=== PATIENT | female | born 1980 | race Hispanic/Latino ===

== ENCOUNTER 2018-01-27 12:38 | Emergency (ER) | payer SELFPAY ==
[2018-01-27] MEDS ORDERED: NACL 0.9% 250ML 250 ML IV ONE (13:39)
[2018-01-27] MEDS ORDERED: SUBLIMAZE IV ONE ×2 (13:39→15:47)
--- NOTE | 2018-01-27 13:41 | Emergency Department Report ---
ED General Adult HPI - General Chief complaint: Chest Pain Stated complaint: CHEST PAINS/DIZZY SPELLS Time Seen by Provider: 01/27/18 13:26 Source: patient, RN notes reviewed Mode of arrival: Ambulatory Limitations: No Limitations - History of Present Illness Initial comments: This is a 37-year-old female who is not known to this provider previously. Her government affairs manager is Dr. Sullivan, up at [facility]. She reports that 2 years ago, at [facility], she had a heart attack and stent. She reports that she's been compliant with her Plavix ever since then. She presents to the ER with a primary complaint of chest pain. The pain is on the right side of the chest and radiates to the back. It started this morning. It is intermittent. It does not have exacerbating or relieving factors. She reports that she fell as she was almost going to pass out. She denies DVT, pulmonary embolus risk factors. She endorses that she is not . She endorses that she has not delivered given within the past 2 months. 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 The headache is not sudden or thunderclap in nature, and it is not the worst headache of her life. The headache started at 11:00 and was occipital and radiates to the bitemporal regions. She has no neck pain or neck stiffness. She also reports that she felt like she was going to pass out, and she endorses resolved binocular loss of vision. -: Gradual Location: head, chest Radiation: back Quality: aching, other (pressure) Consistency: intermittent Worsens with: immobilization Associated Symptoms: chest pain, headaches, loss of appetite, malaise, nausea/ vomiting, shortness of breath, syncope, weakness. denies: confusion, cough, diaphoresis, fever/chills, rash, seizure - Related Data Home Medications Medication Instructions Recorded Confirmed Last Taken Amlodipine Besylate [Norvasc] 5 mg PO QDAY 01/27/18 01/27/18 Unknown Atorvastatin Calcium [Lipitor] 40 mg PO HS 01/27/18 01/27/18 Unknown Calcium Carbonate [Tums] 500 mg PO DAILY 01/27/18 01/27/18 Unknown Carvedilol [Coreg] 25 mg PO BIDWM 01/27/18 01/27/18 Unknown Clopidogrel Bisulfate [Plavix] 75 mg PO QPM 01/27/18 01/27/18 Unknown Dicyclomine [Bentyl] 20 mg PO Q6H 01/27/18 01/27/18 Unknown Insulin Glargine,Hum.rec.anlog 56 units SUB-Q BID 01/27/18 01/27/18 Unknown [Basaglar Kwikpen U-100] Insulin Lispro [HumaLOG VIAL] 20 units SUB-Q TIDWM 01/27/18 01/27/18 Unknown Lisinopril [Zestril] 20 mg PO QDAY 01/27/18 01/27/18 Unknown Pantoprazole [Protonix] 40 mg PO QAM 01/27/18 01/27/18 Unknown Sertraline [Zoloft] 50 mg PO QDAY 01/27/18 01/27/18 Unknown cloNIDine [Catapres] 0.1 mg PO BID 01/27/18 01/27/18 Unknown hydroCHLOROthiazide [HCTZ] 25 mg PO QDAY 01/27/18 01/27/18 Unknown Allergies Allergy/AdvReac Type Severity Reaction Status Date / Time diphenhydramine Allergy Angioedema Verified 01/27/18 12:51 [From Benadryl] ketorolac [From Toradol] Allergy Angioedema Verified 01/27/18 12:51 metformin Allergy Rash Verified 01/27/18 12:51 naproxen Allergy Hives Verified 01/27/18 12:51 nonoxynol 9 Allergy Swelling Verified 01/27/18 12:51 [From [place] Plus Spermicidal Jelly] ED Review of Systems ROS: Stated complaint: CHEST PAINS/DIZZY SPELLS Other details as noted in HPI Comment: All other systems reviewed and negative ED Past Medical Hx - Past Medical History Hx Heart Attack/AMI: Yes Additional medical history: pulmonary edema - Surgical History Additional Surgical History: C/S, renal stents - Social History Smoking Status: Never Smoker Substance Use Type: None - Medications Home Medications: Home Medications Medication Instructions Recorded Confirmed Last Taken Type Amlodipine Besylate [Norvasc] 5 mg PO QDAY 01/27/18 01/27/18 Unknown History Atorvastatin Calcium [Lipitor] 40 mg PO HS 01/27/18 01/27/18 Unknown History Calcium Carbonate [Tums] 500 mg PO DAILY 01/27/18 01/27/18 Unknown History Carvedilol [Coreg] 25 mg PO BIDWM 01/27/18 01/27/18 Unknown History Clopidogrel Bisulfate [Plavix] 75 mg PO QPM 01/27/18 01/27/18 Unknown History Dicyclomine [Bentyl] 20 mg PO Q6H 01/27/18 01/27/18 Unknown History Insulin Glargine,Hum.rec.anlog 56 units SUB-Q BID 01/27/18 01/27/18 Unknown History [Basaglar Kwikpen U-100] Insulin Lispro [HumaLOG VIAL] 20 units SUB-Q TIDWM 01/27/18 01/27/18 Unknown History Lisinopril [Zestril] 20 mg PO QDAY 01/27/18 01/27/18 Unknown History Pantoprazole [Protonix] 40 mg PO QAM 01/27/18 01/27/18 Unknown History Sertraline [Zoloft] 50 mg PO QDAY 01/27/18 01/27/18 Unknown History cloNIDine [Catapres] 0.1 mg PO BID 01/27/18 01/27/18 Unknown History hydroCHLOROthiazide [HCTZ] 25 mg PO QDAY 01/27/18 01/27/18 Unknown History ED Physical Exam - General Limitations: No Limitations General appearance: alert, in no apparent distress - Head Head exam: Present: atraumatic, normocephalic - Eye Eye exam: Present: normal appearance, PERRL, EOMI, other (visual acuity intact to finger counting, color perception, reading at a close distance). Absent: nystagmus - ENT ENT exam: Present: normal exam, normal orophraynx, mucous membranes moist, normal external ear exam - Neck Neck exam: Present: normal inspection, full ROM, other (there is no carotid bruit. There is no expansile mass.). Absent: tenderness, meningismus - Respiratory Respiratory exam: Present: normal lung sounds bilaterally. Absent: respiratory distress - Cardiovascular Cardiovascular Exam: Present: regular rate, normal rhythm, normal heart sounds. Absent: bradycardia, tachycardia, irregular rhythm, systolic murmur, diastolic murmur, rubs, gallop - GI/Abdominal GI/Abdominal exam: Present: soft. Absent: distended, tenderness, guarding, rebound, rigid, pulsatile mass - Extremities Exam Extremities exam: Present: normal inspection, full ROM, normal capillary refill , other (2+ pulses noted in the bilateral upper, lower extremities. Compartments soft. No long bony tenderness. The pelvis is stable.). Absent: tenderness, pedal edema, joint swelling, calf tenderness - Back Exam Back exam: Present: normal inspection, full ROM. Absent: tenderness, CVA tenderness (R), paraspinal tenderness, vertebral tenderness - Neurological Exam Neurological exam: Present: alert, oriented X3, CN II-XII intact (there is no past-pointing. There is normal liin-yo-txkt.), other (Extraocular movements intact. Tongue midline. No facial droop. Facial sensation intact to light touch in the V1, V2, V3 distribution bilaterally. 5 and 5 strength in 4 extremities.. Sensation is intact to light touch in 4 extremities.). Absent: motor sensory deficit - Psychiatric Psychiatric exam: Present: anxious - Skin Skin exam: Present: warm, dry, intact, normal color. Absent: rash ED Course Vital Signs 01/27/18 01/27/18 12:51 14:59 Temperature 98.1 F Pulse Rate 90 Respiratory 18 15 Rate Blood Pressure 191/118 O2 Sat by Pulse 99 97 Oximetry - Reevaluation(s) Reevaluation #1: 01/27/18 14:21 Differential diagnosis, including but not limited to: Pneumonia, acute coronary syndrome, pneumothorax, structural cardiac disease, pulmonary embolus, migraine headache, tension headache, cluster headache, transient ischemic attack Assessment and plan: 37-year-old female with resolved binocular loss of vision, nonspecific headache, chest pain, and syncope. She is afebrile with reassuring vital signs, and her hypertension has resolved with a blood pressure in the 140/ 150s. She does not require emergent antihypertensive therapy at this time. She reports that she is not at this time. She has a GCS of 15, with an NIH score of 0. She reports no pulmonary embolus or DVT risk factors and she reports that she is low risk by well's criteria. Her EKG is morphologically abnormal without prior for comparison. We will attempt to obtain her old medical records. Her symptoms will be treated. She will be admitted to the medical service for cardiac risk stratification. Reevaluation #2: 01/27/18 15:17 Feeling improved. Troponin negative. D-dimer positive. Scans pending. No additional episodes of syncope noted. Reevaluation #3: 01/27/18 15:[address] Megan Castro to follow up ct head and cta chest. would admit if no indication for transfer Reevaluation #4: 01/27/18 16:05 ct head negative patient states she can take aspirin cta chest pending ED Medical Decision Making - Lab Data Result diagrams: 01/27/18 14:22 01/27/18 14:22 Vital Signs 01/27/18 12:51 Temperature 98.1 F Pulse Rate 90 Respiratory 18 Rate Blood Pressure 191/118 O2 Sat by Pulse 99 Oximetry Lab Results 01/27/18 Range/Units 14:19 POC Glucose 249 H (70-105) - EKG Data -: EKG Interpreted by Me EKG shows normal: sinus rhythm Rate: normal - EKG Data When compared to previous EKG there are: previous EKG unavailable 01/27/18 14:23 Sinus, 90 minute, normal axis, QTC prolonged, left bundle branch block, nonspecific interventricular conduction delay, abnormal EKG, no prior for comparison, not a stemi - Radiology Data Radiology results: pending Critical care attestation.: If time is entered above; I have spent that time in minutes in the direct care of this critically ill patient, excluding procedure time. ED Disposition Clinical Impression: Chest pain, Near syncope Disposition: OP ADMIT IP TO THIS HOSP Is pt being admited?: Yes Does the pt Need Aspirin: Yes Condition: Good Instructions: Chest Pain (ED) Referrals: PRIMARY CARE, [Primary Care Provider] - 3-5 Days
[2018-01-27] MEDS: NITROSTAT SL PRN ×3 (14:15→14:25)
[2018-01-27] MEDS ORDERED: ZOFRAN ONE (14:23)
[2018-01-27 14:33] LABS: Hematocrit 35.9 % (30.3-42.9); Hemoglobin 12.3 gm/dl (10.1-14.3); Mean Corpuscular HGB Conc 34 % (30-34); Mean Corpuscular Hemoglobin 32 pg (28-32); Mean Corpuscular Volume 93 fl (79-97); Platelet Count 210 K/mm3 (140-440); Red Blood Count 3.85 M/mm3 (3.65-5.03); Red Cell Distribution Width 13.6 % (13.2-15.2)
[2018-01-27] MEDS ORDERED: ZOFRAN IV ONE (14:34)
[2018-01-27 14:39] LABS: Eosinophils # (Auto) 0.9 K/mm3 (0.0-0.4); Eosinophils % (Auto) 9.9 % (0.0-4.3); Lymphocytes # (Auto) 1.3 K/mm3 (1.2-5.4); Lymphocytes % (Auto) 14.2 % (13.4-35.0); Monocytes # (Auto) 1.4 K/mm3 (0.0-0.8); Monocytes % (Auto) 15.3 % (0.0-7.3)
[2018-01-27 14:50] LABS: INR 0.97 (0.87-1.13); Partial Thromboplastin Time 22.5 Sec. (24.2-36.6)
[2018-01-27 14:55] LABS: BUN/Creatinine Ratio 17; Blood Urea Nitrogen 10 mg/dL (7-17); Calcium 8.7 mg/dL (8.4-10.2); Hemolysis Index 12
--- NOTE | 2018-01-27 16:03 | Cat Scan Report ---
FINAL REPORT EXAM: CT HEAD/BRAIN WO CON HISTORY: headache loss of vosion TECHNIQUE: CT examination of the head without IV contrast PRIORS: None. FINDINGS: The moderate mucosal thickening visualized portion of right maxillary sinus. The other visible paranasal sinuses are clear. Metal artifact limits examination. No acute air-fluid level visualized in the included air-filled sinuses. Bone windows demonstrate no acute fracture. The brain is without mass, mass effect, hemorrhage, or acute infarct. There is no extra-axial intracranial bleed, brain bleed, or midline shift. The ventricles and sulci are age-appropriate. IMPRESSION: No visible acute CVA, intracranial bleed, or brain mass
[2018-01-27] MEDS ORDERED: BABY ASPIRIN PO ONE (16:05)
--- NOTE | 2018-01-27 16:20 | Cat Scan Report ---
FINAL REPORT EXAM: CT ANGIO CHEST HISTORY: chest pain near syncope TECHNIQUE: CT examination of the chest with IV contrast CT angiographic 2D and thick slab 3D image post-processing PRIORS: None. FINDINGS: Normal cardiac size without pericardial effusion. Intact normal caliber thoracic aorta. Normal-appearing esophagus. No hilar mass or mediastinal adenopathy. Slight degenerative change in the regional skeleton. No acute fracture or significant osseous lesion. The visualized pulmonary arteries are diffusely patent bilaterally. There is no filling defect to suggest PE. No pneumothorax, pleural effusion, or focal pulmonary consolidation. No evidence of lung mass or pulmonary nodule. Minimal subpleural patchy opacity in the lateral aspect of the left upper lobe may be scarring. Differential includes small focus of atelectasis or pneumonitis. IMPRESSION: Minimal subpleural patchy opacity in the lateral aspect of the left upper lobe may be scarring. Differential includes small focus of atelectasis or pneumonitis No CT evidence of PE
--- NOTE | 2018-01-27 16:21 | XRay Report ---
FINAL REPORT EXAM: XR CHEST ROUTINE 2V HISTORY: cp TECHNIQUE: 2 view examination of the chest PRIORS: None FINDINGS: There is no visible pulmonary consolidation, pleural effusion, or pneumothorax. Cardiac silhouette size is normal without vascular congestion. No visible acute displaced fracture in the regional skeleton. IMPRESSION: No evidence of acute cardiopulmonary disease
[2018-01-27] MEDS ORDERED: PROTONIX PO ONE (16:24)
[2018-01-27] MEDS ORDERED: ZESTRIL PO ONE (16:42)
--- NOTE | 2018-01-27 17:07 | Consultation ---
History of Present Illness - Reason for Consult Consult date: 01/27/18 Requesting physician: PAOLA MONTEJO - History of Present Illness 37 YO Female with MO, DM, GERD, ID, Pseudotumor Cerebri, HLD presents to ED for evaluation of Atypical Chest pain. Pt treated IAW chest pain protocol. Serial cardiac enzymes, EKG, telemetry were not indicative of acute ischemia. D dimer was elevated but CTA chest was negative for PE. Pt medically optimized and treated with PPI therapy. Pt discharged home and instructed to f/u pcp 1wk, and f/u cardiology 1week for further care and evaluation. Past History Past Medical History: diabetes, hypertension, hyperlipidemia Past Surgical History: Other (renal stents) Social history: single Family history: diabetes, hypertension Medications and Allergies Allergies Allergy/AdvReac Type Severity Reaction Status Date / Time diphenhydramine Allergy Angioedema Verified 01/27/18 12:51 [From Benadryl] ketorolac [From Toradol] Allergy Angioedema Verified 01/27/18 12:51 metformin Allergy Rash Verified 01/27/18 12:51 naproxen Allergy Hives Verified 01/27/18 12:51 nonoxynol 9 Allergy Swelling Verified 01/27/18 12:51 [From [place] Plus Spermicidal Jelly] Home Medications Medication Instructions Recorded Confirmed Last Taken Type Amlodipine Besylate [Norvasc] 5 mg PO QDAY 01/27/18 01/27/18 Unknown History Atorvastatin Calcium [Lipitor] 40 mg PO HS 01/27/18 01/27/18 Unknown History Calcium Carbonate [Tums] 500 mg PO DAILY 01/27/18 01/27/18 Unknown History Carvedilol [Coreg] 25 mg PO BIDWM 01/27/18 01/27/18 Unknown History Clopidogrel Bisulfate [Plavix] 75 mg PO QPM 01/27/18 01/27/18 Unknown History Dicyclomine [Bentyl] 20 mg PO Q6H 01/27/18 01/27/18 Unknown History Insulin Glargine,Hum.rec.anlog 56 units SUB-Q BID 01/27/18 01/27/18 Unknown History [Maycol Murphy U-100] Insulin Lispro [HumaLOG VIAL] 20 units SUB-Q TIDWM 01/27/18 01/27/18 Unknown History Lisinopril [Zestril] 20 mg PO QDAY 01/27/18 01/27/18 Unknown History Pantoprazole [Protonix] 40 mg PO QAM 01/27/18 01/27/18 Unknown History Sertraline [Zoloft] 50 mg PO QDAY 01/27/18 01/27/18 Unknown History cloNIDine [Catapres] 0.1 mg PO BID 01/27/18 01/27/18 Unknown History hydroCHLOROthiazide [HCTZ] 25 mg PO QDAY 01/27/18 01/27/18 Unknown History Active Meds: Active Medications Hydrochlorothiazide (Hctz) 25 mg PO ONCE ONE Stop: 01/27/18 18:16 Metoprolol Tartrate (Lopressor) 25 mg PO ONCE ONE Stop: 01/27/18 17:43 Nitroglycerin (Nitrostat) 0.4 mg SL .Q5MIN PRN PRN Reason: Chest Pain Last Admin: 01/27/18 14:25 Dose: 0.4 mg Review of Systems Constitutional: no weight loss, no weight gain, no fever, no chills Ears, nose, mouth and throat: no ear pain, no ear discharge, no tinnitis, no decreased hearing, no nose pain, no nasal congestion Breasts: no change in shape, no swelling, no mass Cardiovascular: chest pain, high blood pressure, no orthopnea, no palpitations, no rapid/irregular heart beat, no edema, no syncope, no lightheadedness, no shortness of breath, no dyspnea on exertion, no paroxysmal nocturnal dyspnea, no claudication, no phlebitis, no leg edema, no decreased exercise tolerance Respiratory: no cough, no cough with sputum, no excessive sputum, no hemoptysis , no shortness of breath Gastrointestinal: no abdominal pain, no nausea, no vomiting, no diarrhea, no constipation, no change in bowel habits Genitourinary Female: no dysmenorrhea, no pelvic pain, no flank pain, no menorrhagia, no dysuria, no urinary frequency, no urgency, no stress incontinence, no post void dribbling, no incomplete emptying, no urge incontinence Menstruation: no currently menstrual, no premenarcheal, no post hysterectomy, no ammenorrhea, no ammenorrhea on BC, no period normal, no period heavy Rectal: no pain, no incontinence, no bleeding, no itching, no hemorrhoids Musculoskeletal: no neck stiffness, no neck pain, no shooting arm pain, no arm numbness/tingling, no low back pain, no shooting leg pain, no leg numbness/ tingling Integumentary: no rash, no pruritis, no redness, no sores, no wounds, no jaundice Neurological: no paralysis, no weakness, no parathesias, no numbness, no tingling, no seizures, no syncope Psychiatric: no anxiety, no memory loss, no change in sleep habits, no sleep disturbances, no insomnia, no hypersomnia, no change in appetite, no change in libido, no suicidal ideation Endocrine: no cold intolerance, no heat intolerance, no polyphagia, no excessive thirst, no polydipsia, no polyuria, no nocturia, no excessive sweating , no flushing Hematologic/Lymphatic: no easy bruising, no easy bleeding, no lymphadenopathy, no lymphedema Allergic/Immunologic: no urticaria, no allergic rhinitis, no wheezing, no persistent infections, no anaphylaxis, no angioedema Exam - Constitutional Vitals: Temp Pulse Resp BP Pulse Ox 98.1 F 82 16 132/77 99 01/27/18 12:51 01/27/18 15:56 01/27/18 15:56 01/27/18 15:56 01/27/18 15:56 General appearance: Present: no acute distress, well-nourished - EENT Eyes: Present: PERRL ENT: hearing intact, clear oral mucosa - Neck Neck: Present: supple, normal ROM - Respiratory Respiratory effort: normal Respiratory: bilateral: CTA - Cardiovascular Heart Sounds: Present: S1 & S2. Absent: rub, click - Extremities Extremities: pulses symmetrical, No edema Peripheral Pulses: within normal limits - Abdominal General gastrointestinal: Present: soft, non-tender, non-distended, normal bowel sounds Female genitourinary: Present: normal - Integumentary Integumentary: Present: clear, warm, dry - Musculoskeletal Musculoskeletal: gait normal, strength equal bilaterally - Psychiatric Psychiatric: appropriate mood/affect, intact judgment & insight - Neurologic Neurologic: CNII-XII intact, moves all extremities Results - Labs CBC & Chem 7: 01/27/18 14:22 01/27/18 14:22 Labs: Abnormal lab results 01/27/18 01/27/18 01/27/18 Range/Units 14:19 14:22 14:22 Norman % (Auto) 15.3 H (0.0-7.3) % Eos % (Auto) 9.9 H (0.0-4.3) % Norman # 1.4 H (0.0-0.8) K/mm3 Eos # 0.9 H (0.0-0.4) K/mm3 APTT (24.2-36.6) Sec. D-Dimer (0-234) ng/mlDDU Sodium 134 L (137-145) mmol/L Chloride 97.8 L (98-107) mmol/L Creatinine 0.6 L (0.7-1.2) mg/dL Glucose 266 H (65-100) mg/dL POC Glucose 249 H (70-105) 01/27/18 Range/Units 14:22 Norman % (Auto) (0.0-7.3) % Eos % (Auto) (0.0-4.3) % Norman # (0.0-0.8) K/mm3 Eos # (0.0-0.4) K/mm3 APTT 22.5 L (24.2-36.6) Sec. D-Dimer 273.75 H (0-234) ng/mlDDU Sodium (137-145) mmol/L Chloride (98-107) mmol/L Creatinine (0.7-1.2) mg/dL Glucose (65-100) mg/dL POC Glucose (70-105) Assessment and Plan - Patient Problems (1) GERD (gastroesophageal reflux disease) Current Visit: Yes Status: Acute Qualifiers: Esophagitis presence: with esophagitis Qualified Code(s): K21.0 - Gastro- esophageal reflux disease with esophagitis Plan to address problem: PPI therapy, carafate, outpatient GI F/u (2) Hypertension Current Visit: Yes Status: Acute Qualifiers: Hypertension type: essential hypertension Qualified Code(s): I10 - Essential (primary) hypertension Plan to address problem: resume previous antihypertensive therapy. F/u cardiology 1 week for elective stress test. (3) Diabetes Current Visit: Yes Status: Acute Plan to address problem: ADA diet, glucose log 3 times daily
[2018-01-27] MEDS ORDERED: LOPRESSOR PO ONE (17:42)
[2018-01-27] MEDS ORDERED: CARAFATE PO ONE (17:46)
[2018-01-27] MEDS ORDERED: HCTZ PO ONE (18:15)
[2018-01-27 19:15] VITALS: BP 151/81
== END 2018-01-27 19:14 | disposition admitted as inpatient to this hospital (09) ==
LOC: ED 12:38
DX: R07.89 Other chest pain (principal); R55 Syncope and collapse; I25.2 Old myocardial infarction; Z88.6 Allergy status to analgesic agent; Z88.8 Allergy status to other drugs, medicaments and biological substances
CPT/HCPCS: 36415; 70450; 71046; 71275; 80048; 82962; 83880; 84484; 84702; 85025; 85379; 85610; 85730; 93005; 93010; 96361; 96372; 96374; 96375; 99285; J2405; J3010; J7050; Q9967

== ENCOUNTER 2018-02-20 11:30 | Inpatient (IN) | payer OTHER ==
[2018-02-20] MEDS ORDERED: ZOFRAN IV ONE (11:57)
[2018-02-20] MEDS ORDERED: NITRO-BID 2% TP ONE (11:57)
[2018-02-20] MEDS ORDERED: SUBLIMAZE IV ONE (11:57)
[2018-02-20] MEDS ORDERED: ASPIRIN PO ONE (11:58)
--- NOTE | 2018-02-20 12:04 | Emergency Department Report ---
HPI - General Chief Complaint: Chest Pain Time Seen by Provider: 02/20/18 11:48 - HPI HPI: Room 22 The patient is a 37-year-old female presenting with a chief complaint of chest pain. The patient states this morning is 03:00 she developed nausea and vomiting and then diarrhea. The patient states she went to work and an hour later she developed substernal chest pain described as pressure and sharpness radiate into her back and left neck. Patient states she felt near syncopal. The patient states she took a sublingual nitroglycerin and it helped slightly with the pain returned. Patient admits to shortness of breath and diaphoresis with her chest pain. The patient currently gives her pain a score of 8/10. The patient states her last cardiac catheterization occurred approximately one year ago when her LAD stent was reassessed Location: [See above] Duration: [See above] Quality: Pressure/sharp Severity: 8/10 Modifying factors: [see above] Context: [see above] Mode of transportation: [not driving] ED Past Medical Hx - Past Medical History Hx Hypertension: Yes Hx Heart Attack/AMI: Yes Hx Diabetes: Yes Hx Kidney Stones: Yes Additional medical history: Flash pulmonary edema, kidney stents - Surgical History Additional Surgical History: C/S, renal stents, Heart stent in the LAD 2 yrs ago - Family History Family history: no significant - Social History Smoking Status: Former Smoker (none 2 years) Substance Use Type: None (denies illicit drug use), Alcohol (rarely) - Medications Home Medications: Home Medications Medication Instructions Recorded Confirmed Last Taken Type Amlodipine Besylate [Norvasc] 5 mg PO QDAY 01/27/18 01/27/18 Unknown History Atorvastatin Calcium [Lipitor] 40 mg PO HS 01/27/18 01/27/18 Unknown History Calcium Carbonate [Tums] 500 mg PO DAILY 01/27/18 01/27/18 Unknown History Carvedilol [Coreg] 25 mg PO BIDWM 01/27/18 01/27/18 Unknown History Clopidogrel Bisulfate [Plavix] 75 mg PO QPM 01/27/18 01/27/18 Unknown History Dicyclomine [Bentyl] 20 mg PO Q6H 01/27/18 01/27/18 Unknown History Insulin Glargine,Hum.rec.anlog 56 units SUB-Q BID 01/27/18 01/27/18 Unknown History [Maycol Garciapen U-100] Insulin Lispro [HumaLOG VIAL] 20 units SUB-Q TIDWM 01/27/18 01/27/18 Unknown History Lisinopril [Zestril] 20 mg PO QDAY 01/27/18 01/27/18 Unknown History Pantoprazole [Protonix] 40 mg PO QAM 01/27/18 01/27/18 Unknown History Sertraline [Zoloft] 50 mg PO QDAY 01/27/18 01/27/18 Unknown History Sucralfate [Carafate] 1 gm PO ACHS #300 ml 01/27/18 Unknown Rx cloNIDine [Catapres] 0.1 mg PO BID 01/27/18 01/27/18 Unknown History hydroCHLOROthiazide [HCTZ] 25 mg PO QDAY 01/27/18 01/27/18 Unknown History ED Review of Systems ROS: Stated complaint: CHEST PAIN Other details as noted in HPI Constitutional: diaphoresis Eyes: denies: eye pain ENT: denies: throat pain Respiratory: shortness of breath Cardiovascular: chest pain Endocrine: no symptoms reported Gastrointestinal: nausea. denies: vomiting Genitourinary: denies: dysuria Musculoskeletal: denies: back pain Neurological: denies: headache Physical Exam - Physical Exam Vital Signs: Vital Signs 02/20/18 02/20/18 02/20/18 11:34 11:41 11:45 Temperature 98.0 F Pulse Rate 103 H 95 H Respiratory 20 19 Rate Blood Pressure 133/86 Blood Pressure 133/86 [Left] O2 Sat by Pulse 98 99 99 Oximetry 02/20/18 11:51 Temperature 98 F Pulse Rate 110 H Respiratory 20 Rate Blood Pressure 133/86 Blood Pressure [Left] O2 Sat by Pulse 99 Oximetry Physical Exam: GENERAL: The patient is well-developed well-nourished female lying on stretcher not appearing to be in acute distress. [] HEENT: Normocephalic. Atraumatic. Extraocular motions are intact. Patient has moist mucous membranes. NECK: Supple. Trachea midline CHEST/LUNGS: Clear to auscultation. There is no respiratory distress noted. HEART/CARDIOVASCULAR: Regular. There is no tachycardia. There is no gallop rub or murmur. ABDOMEN: Abdomen is soft, nontender. Patient has normal bowel sounds. There is no abdominal distention. SKIN: There is no rash. There is no edema. There is no diaphoresis. NEURO: The patient is awake, alert, and oriented. The patient is cooperative. The patient has normal speech MUSCULOSKELETAL: There is no evidence of acute injury. ED Course Vital Signs 02/20/18 02/20/18 02/20/18 11:34 11:41 11:45 Temperature 98.0 F Pulse Rate 103 H 95 H Respiratory 20 19 Rate Blood Pressure 133/86 Blood Pressure 133/86 [Left] O2 Sat by Pulse 98 99 99 Oximetry 02/20/18 11:51 Temperature 98 F Pulse Rate 110 H Respiratory 20 Rate Blood Pressure 133/86 Blood Pressure [Left] O2 Sat by Pulse 99 Oximetry ED Medical Decision Making - Lab Data Result diagrams: 02/20/18 11:35 02/20/18 11:35 Laboratory Tests 02/20/18 02/20/18 02/20/18 11:35 11:35 11:35 WBC 12.1 H RBC 4.36 Hgb 13.8 Hct 40.4 MCV 93 MCH 32 MCHC 34 RDW 13.4 Plt Count 225 Lymph % (Auto) 20.4 Brooke % (Auto) 6.5 Eos % (Auto) 1.8 Baso % (Auto) 1.1 Lymph # 2.5 Brooke # 0.8 Eos # 0.2 Baso # 0.1 Seg Neutrophils % 70.2 H Seg Neutrophils # 8.5 H Sodium Potassium Chloride Carbon Dioxide Anion Gap BUN Creatinine Estimated GFR BUN/Creatinine Ratio Glucose POC Glucose Calcium Total Creatine Kinase 81 CK-MB (CK-2) 2.9 CK-MB (CK-2) Rel Index 3.5 Troponin T < 0.010 NT-Pro-B Natriuret Pep 140.1 HCG, Qual Negative 02/20/18 02/20/18 11:35 11:56 WBC RBC Hgb Hct MCV MCH MCHC RDW Plt Count Lymph % (Auto) Brooke % (Auto) Eos % (Auto) Baso % (Auto) Lymph # Brooke # Eos # Baso # Seg Neutrophils % Seg Neutrophils # Sodium 139 Potassium 4.5 Chloride 100.1 Carbon Dioxide 22 Anion Gap 21 BUN 15 Creatinine 0.7 Estimated GFR > 60 BUN/Creatinine Ratio 21 Glucose 367 H POC Glucose 304 H Calcium 9.8 Total Creatine Kinase CK-MB (CK-2) CK-MB (CK-2) Rel Index Troponin T NT-Pro-B Natriuret Pep HCG, Qual - EKG Data -: EKG Interpreted by Me EKG shows normal: sinus rhythm Rate: normal - EKG Data When compared to previous EKG there are: no significant change Interpretation: unchanged when compared t (no significant change when compared to previous EKG dated 01/27/2018) - Differential Diagnosis ACS, pericarditis, GERD Critical care attestation.: If time is entered above; I have spent that time in minutes in the direct care of this critically ill patient, excluding procedure time. ED Disposition Clinical Impression: Chest pain Disposition: OP ADMIT IP TO THIS HOSP Is pt being admited?: Yes Does the pt Need Aspirin: Yes Condition: Fair Instructions: Chest Pain (ED) Time of Disposition: 13:12 (hospitalist paged (Dr Edwards))
[2018-02-20 12:12] LABS: Basophils # (Auto) 0.1 K/mm3 (0.0-0.1); Basophils % (Auto) 1.1 % (0.0-1.8); Eosinophils # (Auto) 0.2 K/mm3 (0.0-0.4); Eosinophils % (Auto) 1.8 % (0.0-4.3); Hematocrit 40.4 % (30.3-42.9); Hemoglobin 13.8 gm/dl (10.1-14.3); Lymphocytes # (Auto) 2.5 K/mm3 (1.2-5.4); Lymphocytes % (Auto) 20.4 % (13.4-35.0); Mean Corpuscular HGB Conc 34 % (30-34); Mean Corpuscular Hemoglobin 32 pg (28-32); Mean Corpuscular Volume 93 fl (79-97); Monocytes # (Auto) 0.8 K/mm3 (0.0-0.8); Monocytes % (Auto) 6.5 % (0.0-7.3); Platelet Count 225 K/mm3 (140-440); Red Blood Count 4.36 M/mm3 (3.65-5.03); Red Cell Distribution Width 13.4 % (13.2-15.2)
[2018-02-20 12:45] LABS: BUN/Creatinine Ratio 21; Blood Urea Nitrogen 15 mg/dL (7-17); Calcium 9.8 mg/dL (8.4-10.2); Hemolysis Index 28
--- NOTE | 2018-02-20 12:53 | XRay Report ---
AP CHEST: HISTORY: chest pain AP view of the chest demonstrates a normal mediastinal and cardiac contour with clear lungs and normal bony and soft tissue structures. IMPRESSION: Unremarkable AP chest.
[2018-02-20 12:55] LABS: Creatine Kinase MB 2.9 ng/mL (0.0-4.0)
--- NOTE | 2018-02-20 17:00 | History and Physical Report ---
History of Present Illness Date of examination: 02/20/18 Date of admission: 02/20/18 13:15 Medications and Allergies Allergies Allergy/AdvReac Type Severity Reaction Status Date / Time diphenhydramine Allergy Angioedema Verified 01/27/18 12:51 [From Benadryl] ketorolac [From Toradol] Allergy Angioedema Verified 01/27/18 12:51 metformin Allergy Rash Verified 01/27/18 12:51 naproxen Allergy Hives Verified 01/27/18 12:51 nonoxynol 9 Allergy Swelling Verified 01/27/18 12:51 [From [place] Plus Spermicidal Jelly] Home Medications Medication Instructions Recorded Confirmed Last Taken Type Amlodipine Besylate [Norvasc] 5 mg PO QDAY 01/27/18 01/27/18 Unknown History Atorvastatin Calcium [Lipitor] 40 mg PO HS 01/27/18 01/27/18 Unknown History Calcium Carbonate [Tums] 500 mg PO DAILY 01/27/18 01/27/18 Unknown History Carvedilol [Coreg] 25 mg PO BIDWM 01/27/18 01/27/18 Unknown History Clopidogrel Bisulfate [Plavix] 75 mg PO QPM 01/27/18 01/27/18 Unknown History Dicyclomine [Bentyl] 20 mg PO Q6H 01/27/18 01/27/18 Unknown History Insulin Glargine,Hum.rec.anlog 56 units SUB-Q BID 01/27/18 01/27/18 Unknown History [Basaglar Kwikpen U-100] Insulin Lispro [HumaLOG VIAL] 20 units SUB-Q TIDWM 01/27/18 01/27/18 Unknown History Lisinopril [Zestril] 20 mg PO QDAY 01/27/18 01/27/18 Unknown History Pantoprazole [Protonix] 40 mg PO QAM 01/27/18 01/27/18 Unknown History Sertraline [Zoloft] 50 mg PO QDAY 01/27/18 01/27/18 Unknown History Sucralfate [Carafate] 1 gm PO ACHS #300 ml 01/27/18 Unknown Rx cloNIDine [Catapres] 0.1 mg PO BID 01/27/18 01/27/18 Unknown History hydroCHLOROthiazide [HCTZ] 25 mg PO QDAY 01/27/18 01/27/18 Unknown History Exam - Constitutional Vitals: Temp Pulse Resp BP Pulse Ox 97.6 F 83 20 116/77 98 02/20/18 16:48 02/20/18 16:48 02/20/18 16:48 02/20/18 16:48 02/20/18 16:48 Results - Labs CBC & Chem 7: 02/20/18 11:35 02/20/18 11:35 Labs: Laboratory Last Values WBC 12.1 K/mm3 (4.5-11.0) H 02/20/18 11:35 RBC 4.36 M/mm3 (3.65-5.03) 02/20/18 11:35 Hgb 13.8 gm/dl (10.1-14.3) 02/20/18 11:35 Hct 40.4 % (30.3-42.9) 02/20/18 11:35 MCV 93 fl (79-97) 02/20/18 11:35 MCH 32 pg (28-32) 02/20/18 11:35 MCHC 34 % (30-34) 02/20/18 11:35 RDW 13.4 % (13.2-15.2) 02/20/18 11:35 Plt Count 225 K/mm3 (140-440) 02/20/18 11:35 Lymph % (Auto) 20.4 % (13.4-35.0) 02/20/18 11:35 Turner % (Auto) 6.5 % (0.0-7.3) 02/20/18 11:35 Eos % (Auto) 1.8 % (0.0-4.3) 02/20/18 11:35 Baso % (Auto) 1.1 % (0.0-1.8) 02/20/18 11:35 Lymph # 2.5 K/mm3 (1.2-5.4) 02/20/18 11:35 Turner # 0.8 K/mm3 (0.0-0.8) 02/20/18 11:35 Eos # 0.2 K/mm3 (0.0-0.4) 02/20/18 11:35 Baso # 0.1 K/mm3 (0.0-0.1) 02/20/18 11:35 Seg Neutrophils % 70.2 % (40.0-70.0) H 02/20/18 11:35 Seg Neutrophils # 8.5 K/mm3 (1.8-7.7) H 02/20/18 11:35 Sodium 139 mmol/L (137-145) 02/20/18 11:35 Potassium 4.5 mmol/L (3.6-5.0) 02/20/18 11:35 Chloride 100.1 mmol/L (98-107) 02/20/18 11:35 Carbon Dioxide 22 mmol/L (22-30) 02/20/18 11:35 Anion Gap 21 mmol/L 02/20/18 11:35 BUN 15 mg/dL (7-17) 02/20/18 11:35 Creatinine 0.7 mg/dL (0.7-1.2) 02/20/18 11:35 Estimated GFR > 60 ml/min 02/20/18 11:35 BUN/Creatinine Ratio 21 % 02/20/18 11:35 Glucose 367 mg/dL (65-100) H 02/20/18 11:35 POC Glucose 304 (70-105) H 02/20/18 11:56 Calcium 9.8 mg/dL (8.4-10.2) 02/20/18 11:35 Total Creatine Kinase 81 units/L (30-135) 02/20/18 11:35 CK-MB (CK-2) 2.9 ng/mL (0.0-4.0) 02/20/18 11:35 CK-MB (CK-2) Rel Index 3.5 (0-4) 02/20/18 11:35 Troponin T < 0.010 ng/mL (0.00-0.029) 02/20/18 11:35 NT-Pro-B Natriuret Pep 140.1 pg/mL (0-450) 02/20/18 11:35 HCG, Qual Negative (Negative) 02/20/18 11:35
[2018-02-20] MEDS ORDERED: MORPHINE IV PRN (17:01)
[2018-02-20] MEDS ORDERED: TYLENOL PO PRN (17:01)
[2018-02-20] MEDS ORDERED: SODIUM CHLORIDE FLUSH SYRINGE 10 ML IV PRN (17:01)
[2018-02-20] MEDS: BENTYL PO SCH ×2 (19:02→23:57)
[2018-02-20] MEDS: COREG PO SCH ×2 (19:03→22:39)
[2018-02-20] MEDS: HCTZ PO SCH (19:03)
[2018-02-20] MEDS: TUMS PO SCH (19:08)
[2018-02-20] MEDS: NORVASC PO SCH (19:08)
[2018-02-20] MEDS: PLAVIX PO SCH (19:09)
[2018-02-20] MEDS: ZOFRAN IV PRN (19:09)
[2018-02-20] MEDS: HumaLOG SUB-Q SCH ×2 (19:10→22:42)
[2018-02-20] MEDS: DILAUDID IV PRN (21:10)
[2018-02-20] MEDS ORDERED: LANTUS SUB-Q SCH (22:00)
[2018-02-20] MEDS ORDERED: INSULIN GLARGINE HUM REC ANLOG 56 UNIT SUB-Q SCH (22:00)
[2018-02-20] MEDS: CATAPRES PO SCH (22:39)
[2018-02-20] MEDS: CARAFATE PO SCH (22:39)
[2018-02-20] MEDS: SODIUM CHLORIDE FLUSH SYRINGE 10 ML IV SCH (22:41)
[2018-02-21] MEDS: DILAUDID IV PRN ×5 (01:02→23:56)
[2018-02-21] MEDS: BENTYL PO SCH ×4 (05:37→23:56)
--- NOTE | 2018-02-21 06:56 | Event Note ---
Date: 02/20/18 See dictated H/p in reports Chest pain -r/o [place] HTN CAD and stent placement T2DM
[2018-02-21 07:20] LABS: Basophils % (Auto) 0.5 % (0.0-1.8); Eosinophils # (Auto) 0.3 K/mm3 (0.0-0.4); Eosinophils % (Auto) 3.2 % (0.0-4.3); Hematocrit 37.5 % (30.3-42.9); Hemoglobin 12.8 gm/dl (10.1-14.3); Lymphocytes # (Auto) 1.9 K/mm3 (1.2-5.4); Lymphocytes % (Auto) 20.8 % (13.4-35.0); Mean Corpuscular HGB Conc 34 % (30-34); Mean Corpuscular Hemoglobin 32 pg (28-32); Mean Corpuscular Volume 93 fl (79-97); Monocytes # (Auto) 0.6 K/mm3 (0.0-0.8); Monocytes % (Auto) 7.1 % (0.0-7.3); Platelet Count 208 K/mm3 (140-440); Red Blood Count 4.04 M/mm3 (3.65-5.03); Red Cell Distribution Width 13.6 % (13.2-15.2)
[2018-02-21 07:40] LABS: Alanine Aminotransferase 16 units/L (7-56); Albumin 3.6 g/dL (3.9-5); BUN/Creatinine Ratio 20; Blood Urea Nitrogen 14 mg/dL (7-17); Calcium 8.9 mg/dL (8.4-10.2); Hemolysis Index 8
[2018-02-21] MEDS: CARAFATE PO SCH ×4 (08:00→21:59)
[2018-02-21] MEDS ORDERED: HumaLOG SUB-Q SCH (08:00)
[2018-02-21] MEDS: HumaLOG SUB-Q SCH ×7 (08:00→22:00)
[2018-02-21] MEDS ORDERED: LEXISCAN IV ONE ×2 (08:12→08:19)
--- NOTE | 2018-02-21 08:12 | History and Physical Report ---
Priority CHIEF COMPLAINT: Left-sided chest pain since morning. HISTORY OF PRESENT ILLNESS: A 37-year-old female woke up around 3:00 a.m. with chest pain. Also, had developed nausea and vomiting. The patient went to work and an hour later she developed substernal chest pain with radiation to the left side of the neck and into the back. Also, she was near syncopal. The patient took sublingual nitroglycerin, which helped slightly with the pain. The patient also admits to shortness of breath and diaphoresis with the chest pain. The patient had LAD stent recently. No exacerbating or relieving factors. Chest pain is about 8 on a scale of 1-10. Sharp in nature. PAST MEDICAL HISTORY: Significant for hypertension, coronary artery disease, acute [place], diabetes, kidney stones, ____ kidney stents bilaterally and flash pulmonary edema. PAST SURGICAL HISTORY: Bilateral renal stents and a stent in the left main 2 years ago. FAMILY HISTORY: Hypertension. SOCIAL HISTORY: Former smoker, stopped 2 years ago. No substance abuse or alcohol socially. CURRENT MEDICATIONS: On the chart including amlodipine, Lipitor, and Coreg. Also, insulin. REVIEW OF SYSTEMS: Significant for left-sided chest pain and nausea. Otherwise, review of systems is essentially negative. PHYSICAL EXAMINATION: GENERAL: Young female, cooperative during examination. VITAL SIGNS: Blood pressure is 101/60, temperature is 97.7, pulse is 71, respirations are 17, sats are 98%. HEENT: Unremarkable. Pupils equal and reactive. NECK: Supple, no lymphadenopathy, no thyromegaly. LUNGS: Clear to auscultation and percussion. Good air entry. CARDIOVASCULAR: S1, S2 heard. No gallop, no murmur, no rub. Apical impulse in left fifth intercostal space and midclavicular line. ABDOMEN: Soft and benign. No hepatosplenomegaly. No guarding, no rigidity. Hernial orifices are normal. EXTREMITIES: Good pedal pulses. No pedal edema. CENTRAL NERVOUS SYSTEM: Alert and oriented x 4, nonfocal exam. SKIN: Normal. LABORATORY DATA: EKG, normal sinus rhythm. Chest x-ray unremarkable. Labs are significant for white count of 12,100, H and H is 13.8 and 40.4, platelet count is 225,000. Electrolytes are normal. Glucose is 304, 256. Hemoglobin A1c is 12.2. ASSESSMENT AND PLAN: 1. Chest pain, rule out myocardial infarction, chest pain protocol. Lexiscan in the morning. Serial cardiac enzymes. 2. Uncontrolled diabetes, insulin was adjusted. The patient was on Lantus 56 units twice a day. I have increased it to 70. I also added lunchtime Humalog. 3. Hypertension. Continue amlodipine, Coreg and lisinopril. 4. Depression. Continue Zoloft. 5. Coronary artery disease. Continue Plavix. 6. Gastroesophageal reflux disease. Continue Zoloft. 7. Deep venous thrombosis prophylaxis, Lovenox 40 mg subcutaneous daily. JOB# [id number] VSM/NTS
[2018-02-21] MEDS ORDERED: AFLURIA QUAD 2018-2019 SYRINGE IM ONE (12:00)
[2018-02-21] MEDS: BABY ASPIRIN PO SCH (13:04)
[2018-02-21] MEDS: PROTONIX PO SCH (13:05)
[2018-02-21] MEDS: TUMS PO SCH (13:06)
[2018-02-21] MEDS: CATAPRES PO SCH ×2 (13:08→22:09)
[2018-02-21] MEDS: COREG PO SCH ×2 (13:09→22:00)
[2018-02-21] MEDS: NORVASC PO SCH (13:10)
[2018-02-21] MEDS: HCTZ PO SCH (13:10)
[2018-02-21] MEDS: SODIUM CHLORIDE FLUSH SYRINGE 10 ML IV SCH ×2 (13:11→22:10)
[2018-02-21] MEDS: ZESTRIL PO SCH (13:12)
[2018-02-21] MEDS: LANTUS SUB-Q SCH ×2 (13:15→22:00)
[2018-02-21] MEDS: ZOLOFT PO SCH (13:23)
--- NOTE | 2018-02-21 15:47 | Discharge Summary ---
Providers - Providers Date of Admission: 02/20/18 13:15 Date of discharge: 02/21/18 Attending physician: SHI DOWNS Primary care physician: SPLICER APPRENTICE Hospitalization Condition: Fair Disposition: DC-01 TO HOME OR SELFCARE Time spent for discharge: 31 min Core Measure Documentation - Palliative Care Palliative Care/ Comfort Measures: Not Applicable - Core Measures Any of the following diagnoses?: none Exam - Constitutional Vitals: Temp Pulse Resp BP Pulse Ox 97.4 F L 74 20 79/59 99 02/21/18 12:24 02/21/18 12:24 02/21/18 12:24 02/21/18 13:12 02/21/18 12:24 General appearance: Present: no acute distress, well-nourished, obese (morbidly obese) - EENT Eyes: Present: PERRL, EOM intact - Neck Neck: Present: supple, normal ROM - Respiratory Respiratory effort: normal - Cardiovascular Rhythm: regular Heart Sounds: Present: S1 & S2 - Extremities Extremities: no ischemia, No edema - Abdominal General gastrointestinal: Present: soft, non-tender, non-distended, normal bowel sounds - Integumentary Integumentary: Present: clear, warm - Musculoskeletal Musculoskeletal: strength equal bilaterally - Psychiatric Psychiatric: appropriate mood/affect, cooperative - Neurologic Neurologic: CNII-XII intact, moves all extremities Plan Activity: no restrictions Diet: diabetic Additional Instructions: Exercise as tolerated and weight reduction when stable. Advised to see a private [employer] as needed Follow up with: PRIMARY CARE, [Primary Care Provider] - 7 Days BLAS MACIEL MD [Staff Physician] - 7 Days KARRI GILLETTE MD [Staff Physician] - 7 Days Prescriptions: Carvedilol [Coreg] 25 mg PO BIDWM #60 tablet Pantoprazole [Protonix TAB] 40 mg PO QAM #14 tablet
--- NOTE | 2018-02-21 18:05 | Progress Note ---
Assessment and Plan Assessment and plan: --Atypical chest pain; probably noncardiac, negative stress test Chest pain probably secondary to GERD, continue Protonix --Type 2 diabetes mellitus; uncontrolled, blood sugars more than 300s Continue Accu-Chek sliding scale coverage and ADA diet longer acting insulin, HbA1c 12.2 --Hypertension; on the lower range, continue current antihypertensives As needed, closely monitor blood pressures --History of depression; continue antidepression medications --Coronary artery disease; stable and cardiac medications --Morbid obesity; BMI more than 46.6 counseling exercise and diet modification, and weight reduction as tolerated --DVT prophylaxis; Lovenox Closely monitor the patient and adjust management as needed Plan of care reviewed with the patient and her nurse. History Interval history: Patient seen and examined medical records reviewed Feels slightly better still has mild chest pain Stress test negative for reversible ischemia Patient's blood sugars are uncontrolled Vital signs noted Hospitalist Physical - Constitutional Vitals: Temp Pulse Resp BP Pulse Ox 98.1 F 70 20 116/79 99 02/21/18 16:17 02/21/18 16:17 02/21/18 16:17 02/21/18 16:17 02/21/18 16:17 General appearance: Present: no acute distress, well-nourished, obese (morbidly obese) - EENT Eyes: Present: PERRL, EOM intact - Neck Neck: Present: supple, normal ROM - Respiratory Respiratory effort: normal Respiratory: bilateral: diminished, negative: rales, rhonchi, wheezing - Cardiovascular Rhythm: regular Heart Sounds: Present: S1 & S2 - Extremities Extremities: no ischemia, No edema - Abdominal General gastrointestinal: soft, non-tender, non-distended, normal bowel sounds - Integumentary Integumentary: Present: clear, warm - Psychiatric Psychiatric: appropriate mood/affect, cooperative - Neurologic Neurologic: moves all extremities Results - Labs CBC & Chem 7: 02/21/18 06:31 02/21/18 06:31 Labs: Laboratory Last Values WBC 9.1 K/mm3 (4.5-11.0) 02/21/18 06:31 RBC 4.04 M/mm3 (3.65-5.03) 02/21/18 06:31 Hgb 12.8 gm/dl (10.1-14.3) 02/21/18 06:31 Hct 37.5 % (30.3-42.9) 02/21/18 06:31 MCV 93 fl (79-97) 02/21/18 06: MCH 32 pg (28-32) 02/21/18 06:31 MCHC 34 % (30-34) 02/21/18 06:31 RDW 13.6 % (13.2-15.2) 02/21/18 06:31 Plt Count 208 K/mm3 (140-440) 02/21/18 06:31 Lymph % (Auto) 20.8 % (13.4-35.0) 02/21/18 06:31 Dunn % (Auto) 7.1 % (0.0-7.3) 02/21/18 06: Eos % (Auto) 3.2 % (0.0-4.3) 02/21/18 06: Baso % (Auto) 0.5 % (0.0-1.8) 02/21/18 06: Lymph # 1.9 K/mm3 (1.2-5.4) 02/21/18 06:31 Dunn # 0.6 K/mm3 (0.0-0.8) 02/21/18 06:31 Eos # 0.3 K/mm3 (0.0-0.4) 02/21/18 06:31 Baso # 0.0 K/mm3 (0.0-0.1) 02/21/18 06:31 Seg Neutrophils % 68.4 % (40.0-70.0) 02/21/18 06: Seg Neutrophils # 6.3 K/mm3 (1.8-7.7) 02/21/18 06:31 Sodium 132 mmol/L (137-145) L D 02/21/18 06:31 Potassium 4.4 mmol/L (3.6-5.0) 02/21/18 06:31 Chloride 98.5 mmol/L (98-107) 02/21/18 06:31 Carbon Dioxide 24 mmol/L (22-30) 02/21/18 06:31 Anion Gap 14 mmol/L 02/21/18 06:31 BUN 14 mg/dL (7-17) 02/21/18 06:31 Creatinine 0.7 mg/dL (0.7-1.2) 02/21/18 06:31 Estimated GFR > 60 ml/min 02/21/18 06:31 BUN/Creatinine Ratio 20 % 02/21/18 06:31 Glucose 401 mg/dL (65-100) H 02/21/18 06:31 POC Glucose 358 (70-105) H 02/21/18 12:25 Hemoglobin A1c 12.2 % (4-6) H 02/20/18 17:23 Calcium 8.9 mg/dL (8.4-10.2) 02/21/18 06:31 Magnesium 1.90 mg/dL (1.7-2.3) 02/21/18 01:48 Total Bilirubin 0.30 mg/dL (0.1-1.2) 02/21/18 06:31 AST 13 units/L (5-40) 02/21/18 06:31 ALT 16 units/L (7-56) 02/21/18 06:31 Alkaline Phosphatase 72 units/L (35-129) 02/21/18 06:31 Total Creatine Kinase 81 units/L (30-135) 02/20/18 11:35 CK-MB (CK-2) 2.9 ng/mL (0.0-4.0) 02/20/18 11:35 CK-MB (CK-2) Rel Index 3.5 (0-4) 02/20/18 11:35 Troponin T < 0.010 ng/mL (0.00-0.029) 02/21/18 13:31 NT-Pro-B Natriuret Pep 140.1 pg/mL (0-450) 02/20/18 11:35 Total Protein 6.8 g/dL (6.3-8.2) 02/21/18 06:31 Albumin 3.6 g/dL (3.9-5) L 02/21/18 06:31 Albumin/Globulin Ratio 1.1 % 02/21/18 06:31 HCG, Qual Negative (Negative) 02/20/18 11:35
[2018-02-21] MEDS: PLAVIX PO SCH (18:22)
[2018-02-21] MEDS: ZOFRAN IV PRN (20:17)
--- NOTE | 2018-02-21 21:34 | Treadmill Report ---
LEXISCAN STRESS TEST REPORT REASON FOR STUDY: Chest pain. STRESS TEST PROTOCOL: The patient received 0.4 mg of Lexiscan intravenously over 10 seconds. Tc-99m Tetrofosmin was subsequently injected. Baseline EKG, sinus rhythm with left bundle branch block. Lexiscan EKG, no significant change from baseline. No chest pain. The patient developed transient atrial flutter during Lexiscan infusion. She promptly converted to sinus rhythm in the post-infusion phase. IMPRESSION: Nondiagnostic due to baseline EKG abnormalities. Nuclear imaging report to follow. JOB# [id number] AGO/NTS
[2018-02-22] MEDS: BENTYL PO SCH ×3 (05:28→19:06)
[2018-02-22] MEDS: DILAUDID IV PRN ×2 (05:29→11:32)
[2018-02-22] MEDS: HumaLOG SUB-Q SCH ×6 (07:30→18:57)
[2018-02-22] MEDS: CARAFATE PO SCH ×3 (08:36→18:54)
[2018-02-22 09:05] LABS: BUN/Creatinine Ratio 20; Blood Urea Nitrogen 14 mg/dL (7-17); Calcium 8.5 mg/dL (8.4-10.2); Hemolysis Index 44
[2018-02-22] MEDS: ZESTRIL PO SCH (10:03)
[2018-02-22] MEDS: LANTUS SUB-Q SCH (10:03)
[2018-02-22 10:27] VITALS: BP 108/60
[2018-02-22] MEDS: CATAPRES PO SCH (10:37)
[2018-02-22] MEDS: HCTZ PO SCH (10:37)
[2018-02-22] MEDS: TUMS PO SCH (10:37)
[2018-02-22] MEDS: PROTONIX PO SCH (10:38)
[2018-02-22] MEDS: COREG PO SCH (10:38)
[2018-02-22] MEDS: NORVASC PO SCH (10:38)
[2018-02-22] MEDS: BABY ASPIRIN PO SCH (10:39)
[2018-02-22] MEDS: ZOLOFT PO SCH (10:39)
[2018-02-22] MEDS: SODIUM CHLORIDE FLUSH SYRINGE 10 ML IV SCH (11:41)
--- NOTE | 2018-02-22 14:28 | Discharge Summary ---
Providers - Providers Date of Admission: 02/20/18 13:15 Date of discharge: 02/22/18 Attending physician: SHI DOWNS Primary care physician: AURIST Hospitalization Reason for admission: Chest pain Condition: Fair Pertinent studies: CXR : normal Stress test: Negative for reversible ischemia,Old fixed defects EF 50% Hospital course: 37 yr old morbidly obese female patient ws admitted through ER with atypical chest pain.Symptomatically managed,had stress test,neg for reversible ischemia. Blood sugars were uncontrolled,optimised medications. Counselled compliance with medications and f/u visits. Today ptient is comfortable,no new complaints,vital signs stable Physical exam at discharge is unremarkable. Hemodynamically stable at discharge Discharge Diagnosis : --Atypical chest pain; probably noncardiac, negative stress test --GERD: Chest pain probably secondary to GERD, continue Protonix --Type 2 diabetes mellitus; uncontrolled, blood sugars higher 200s and 300s, HbA1c 12.2 --Hypertension; well controlled, continue current antihypertensives --History of depression; continue antidepression medications --Coronary artery disease; stable and cardiac medications --Morbid obesity; BMI more than 46.6 ;counseling weight reduction as tolerated Disposition: DC-01 TO HOME OR SELFCARE Time spent for discharge: 32 min Core Measure Documentation - Palliative Care Palliative Care/ Comfort Measures: Not Applicable - Core Measures Any of the following diagnoses?: none Exam - Constitutional Vitals: Temp Pulse Resp BP Pulse Ox 97.7 F 69 20 108/60 96 02/22/18 10:23 02/22/18 10:23 02/22/18 10:23 02/22/18 10:23 02/22/18 10:23 General appearance: Present: no acute distress, well-nourished, obese (morbidly obese) - EENT Eyes: Present: PERRL, EOM intact - Neck Neck: Present: supple, normal ROM - Respiratory Respiratory effort: normal Respiratory: bilateral: diminished, negative: rales, rhonchi, wheezing - Cardiovascular Rhythm: regular Heart Sounds: Present: S1 & S2 - Extremities Extremities: no ischemia, No edema - Abdominal General gastrointestinal: Present: soft, non-tender, non-distended, normal bowel sounds - Integumentary Integumentary: Present: clear, warm - Musculoskeletal Musculoskeletal: strength equal bilaterally - Psychiatric Psychiatric: appropriate mood/affect, cooperative - Neurologic Neurologic: CNII-XII intact, moves all extremities Plan Activity: advance as tolerated, fall precautions Diet: low salt, diabetic Additional Instructions: Advised to comply with medications and diet and follow- up visits. Advised weight reduction as tolerated when medically stable. Follow Primary care physician/[facility] in 3-4 days Follow up with: BLAS MACIEL MD [Staff Physician] - 7 Days KARRI GILLETTE MD [Staff Physician] - 7 Days PRIMARY CARE, [Primary Care Provider] - 7 Days Forms: Work/School Release Form Prescriptions: Amlodipine Besylate [Norvasc] 5 mg PO QDAY #30 tablet Carvedilol [Coreg] 25 mg PO BIDWM #60 tablet cloNIDine [Catapres] 0.1 mg PO BID #60 tablet Clopidogrel Bisulfate [Plavix] 75 mg PO QPM #30 tablet Pantoprazole [Protonix TAB] 40 mg PO QAM #14 tablet Other Discharge Orders: Glucometer supplies[Amb] Location: None Selected
[2018-02-22] MEDS: PLAVIX PO SCH (18:54)
--- NOTE | 2018-02-24 05:09 | Treadmill Report ---
THALLIUM REPORT REASON FOR STUDY: Chest pain. IMAGING PROTOCOL: The patient received Tc-99m tetrofosmin for stress and rest imaging. Imaging for all procedures was completed 30-90 minutes following the initial injection of Technetium 99m Tetrofosmin. SPECT imaging in the 180 degree arc was performed in the right anterior oblique projection. Computerized reconstruction of the images was performed for analysis. NUCLEAR IMAGING RESULTS: Technically suboptimal study due to significant soft tissue attenuation artifact. Normal left ventricular cavity size with no change from stress to rest. Distribution of radionuclide within the left ventricle revealed a medium-sized area of photo-induction involving the apex. The degree of photo-induction is moderate. Rest imaging does not show any significant improvement in this defect. There is also a medium size area of photo-induction involving the anteroseptal wall. The degree of photo-induction is moderate. Rest imaging showed worsening of the defect, suggesting that it is probably artifactual. In addition, there is a small area of photo-induction involving the anteroapical wall. The degree of photo-induction is moderate. Rest imaging does not show any significant improvement in this defect. There is a medium size area of photo-induction involving the inferior wall. The degree of photo-induction is moderate. Rest imaging showed worsening of the defect, suggesting that it is probably artifactual. Gated SPECT imaging revealed borderline normal global LV systolic function with septal hypokinesis. The calculated left ventricular ejection fraction is 50%. IMPRESSION: Technically suboptimal study. Medium sized fixed apical defect. Medium sized fixed anteroseptal defect, probably artifactual. Small fixed anteroapical defect. Medium sized fixed inferior wall defect, probably artifactual. Borderline normal global LV systolic function with septal hypokinesis. EF 50%. These findings suggest prior infarction involving the left anterior descending coronary artery territory. However, in the absence of significant wall motion abnormalities in the defect areas, the defects noted in this patient may be artifactual. No evidence of significant stress-induced ischemia. JOB# [id number] YOBANI/BHUPINDER
== END 2018-02-22 19:25 | disposition home or self-care (01) | DRG 392 ==
LOC: ED 11:30 → 4A 13:15
PROVIDERS: ADMIT Internal Medicine; ATTEND Internal Medicine
DX: K21.9 Gastro-esophageal reflux disease without esophagitis (principal); R07.89 Other chest pain; E11.9 Type 2 diabetes mellitus without complications; I10 Essential (primary) hypertension; F32.9 Major depressive disorder, single episode, unspecified; I25.10 Atherosclerotic heart disease of native coronary artery without angina pectoris; E66.01 Morbid (severe) obesity due to excess calories; Z71.3 Dietary counseling and surveillance; Z95.5 Presence of coronary angioplasty implant and graft; I25.2 Old myocardial infarction; Z87.442 Personal history of urinary calculi; Z82.49 Family history of ischemic heart disease and other diseases of the circulatory system; Z87.891 Personal history of nicotine dependence; Z79.899 Other long term (current) drug therapy; Z79.4 Long term (current) use of insulin; Z68.42 Body mass index [BMI] 45.0-49.9, adult
CPT/HCPCS: 36415; 71045; 78452; 80048; 80053; 82550; 82553; 82962; 83036; 83735; 83880; 84484; 84703; 85025; 90686; 93005; 93010; 93017; 96372; 96374; 96375; A9270-GY; A9502; J1170; J1815; J2270; J2405; J2785; J3010

== ENCOUNTER 2018-06-30 13:11 | Emergency (ER) | payer OTHER ==
--- NOTE | 2018-06-30 13:59 | Emergency Department Report ---
Blank Doc - Documentation Documentation: 38 yo female presents with vaginal d/c with inability to void low flank pain. lmp 06/16/18 EXAM: wnl, non tender PLAN: insert ua cathether ua.upt fasttrack
[2018-06-30] MEDS ORDERED: MORPHINE IV ONE (16:33)
[2018-06-30] MEDS ORDERED: ZOFRAN IV ONE (16:33)
[2018-06-30] MEDS ORDERED: NORMODYNE IV ONE ×3 (16:34→18:56)
--- NOTE | 2018-06-30 16:36 | Emergency Department Report ---
ED Abdominal Pain HPI - General Chief Complaint: Urogenital-Female Stated Complaint: VAGINAL ISSUES/NAUSEA/HBP Time Seen by Provider: 06/30/18 15:36 Source: patient Mode of arrival: Ambulatory Limitations: No Limitations - History of Present Illness Initial Comments: Patient is a 38-year-old female with history of coronary artery disease, status post stent, kidney stone, hypertension and diabetes. Patient presented to the ER complaining of right flank pain since last night associated with inability to void. Patient stated that she had history of kidney stone before with multiple stents. Patient also stated that she's been having nausea and vomiting. No fever but some chills. Denied any chest pain or shortness of breath. MD Complaint: abdominal pain, flank pain -: Last night Location: R flank Radiation: none Migration to: no migration Severity scale (0 -10): 9 Quality: sharp - Related Data Home Medications Medication Instructions Recorded Confirmed Last Taken Atorvastatin Calcium [Lipitor] 40 mg PO HS 01/27/18 02/20/18 02/19/18 Dicyclomine [Bentyl] 20 mg PO Q6H 01/27/18 02/20/18 02/20/18 Insulin Glargine,Hum.rec.anlog 56 units SUB-Q BID 01/27/18 02/20/18 02/20/18 [Basaglar Kwikpen U-100] Insulin Lispro [HumaLOG VIAL] 20 units SUB-Q TIDWM 01/27/18 02/20/18 02/20/18 Lisinopril [Zestril] 20 mg PO QDAY 01/27/18 02/20/18 02/20/18 hydroCHLOROthiazide [HCTZ] 25 mg PO QDAY 01/27/18 02/20/18 02/20/18 Previous Rx's Medication Instructions Recorded Last Taken Type Sucralfate [Carafate] 1 gm PO ACHS #300 ml 01/27/18 02/19/18 Rx Calcium Carbonate [Tums] 500 mg PO DAILY tablet 02/21/18 Unknown Rx Carvedilol [Coreg] 25 mg PO BIDWM #60 tablet 02/21/18 Unknown Rx Pantoprazole [Protonix TAB] 40 mg PO QAM #14 tablet 02/21/18 Unknown Rx Sertraline [Zoloft] 50 mg PO QDAY tablet 02/21/18 Unknown Rx Amlodipine Besylate [Norvasc] 5 mg PO QDAY #30 tablet 02/22/18 Unknown Rx Aspirin [Aspirin BABY CHEW TAB] 81 mg PO QDAY tab.chew 02/22/18 Unknown Rx Clopidogrel Bisulfate [Plavix] 75 mg PO QPM #30 tablet 02/22/18 Unknown Rx cloNIDine [Catapres] 0.1 mg PO BID #60 tablet 02/22/18 Unknown Rx Tramadol HCl [Ultram] 50 mg PO Q6H PRN #10 tablet 04/24/18 Unknown Rx Allergies Allergy/AdvReac Type Severity Reaction Status Date / Time azithromycin [From Zithromax] Allergy Swelling Verified 06/30/18 13:54 diphenhydramine Allergy Angioedema Verified 01/27/18 12:51 [From Benadryl] ketorolac [From Toradol] Allergy Angioedema Verified 01/27/18 12:51 metformin Allergy Rash Verified 01/27/18 12:51 naproxen Allergy Hives Verified 01/27/18 12:51 nonoxynol 9 Allergy Swelling Verified 01/27/18 12:51 [From [place] Plus Spermicidal Jelly] ED Review of Systems ROS: Stated complaint: VAGINAL ISSUES/NAUSEA/HBP Other details as noted in HPI Comment: All other systems reviewed and negative Constitutional: chills. denies: fever Respiratory: denies: cough, orthopnea, shortness of breath, SOB with exertion, SOB at rest, wheezing Cardiovascular: palpitations. denies: chest pain Gastrointestinal: abdominal pain, nausea, vomiting. denies: diarrhea, constipation, hematemesis, melena, hematochezia Musculoskeletal: back pain Neurological: denies: headache, weakness, numbness, paresthesias, confusion ED Past Medical Hx - Past Medical History Previous Medical History?: Yes Hx Hypertension: Yes Hx Heart Attack/AMI: Yes Hx Diabetes: Yes Hx Kidney Stones: Yes Additional medical history: Flash pulmonary edema, kidney stents - Surgical History Past Surgical History?: Yes Additional Surgical History: C/S, renal stents, Heart stent in the LAD 2 yrs ago - Social History Smoking Status: Never Smoker Substance Use Type: None - Medications Home Medications: Home Medications Medication Instructions Recorded Confirmed Last Taken Type Atorvastatin Calcium [Lipitor] 40 mg PO HS 01/27/18 02/20/18 02/19/18 History Dicyclomine [Bentyl] 20 mg PO Q6H 01/27/18 02/20/18 02/20/18 History Insulin Glargine,Hum.rec.anlog 56 units SUB-Q BID 01/27/18 02/20/18 02/20/18 History [Basaglar Kwikpen U-100] Insulin Lispro [HumaLOG VIAL] 20 units SUB-Q TIDWM 01/27/18 02/20/18 02/20/18 History Lisinopril [Zestril] 20 mg PO QDAY 01/27/18 02/20/18 02/20/18 History Sucralfate [Carafate] 1 gm PO ACHS #300 ml 01/27/18 02/20/18 02/19/18 Rx hydroCHLOROthiazide [HCTZ] 25 mg PO QDAY 01/27/18 02/20/18 02/20/18 History Calcium Carbonate [Tums] 500 mg PO DAILY tablet 02/21/18 Unknown Rx Carvedilol [Coreg] 25 mg PO BIDWM #60 tablet 02/21/18 Unknown Rx Pantoprazole [Protonix TAB] 40 mg PO QAM #14 tablet 02/21/18 Unknown Rx Sertraline [Zoloft] 50 mg PO QDAY tablet 02/21/18 Unknown Rx Amlodipine Besylate [Norvasc] 5 mg PO QDAY #30 tablet 02/22/18 Unknown Rx Aspirin [Aspirin BABY CHEW TAB] 81 mg PO QDAY tab.chew 02/22/18 Unknown Rx Clopidogrel Bisulfate [Plavix] 75 mg PO QPM #30 tablet 02/22/18 Unknown Rx cloNIDine [Catapres] 0.1 mg PO BID #60 tablet 02/22/18 Unknown Rx Tramadol HCl [Ultram] 50 mg PO Q6H PRN #10 tablet 04/24/18 Unknown Rx ED Physical Exam - General Limitations: No Limitations General appearance: alert, in no apparent distress - Head Head exam: Present: atraumatic, normocephalic, normal inspection - Eye Eye exam: Present: normal appearance, PERRL - ENT ENT exam: Present: normal exam, normal orophraynx, mucous membranes moist - Neck Neck exam: Present: normal inspection, full ROM. Absent: tenderness, meningismus - Respiratory Respiratory exam: Present: normal lung sounds bilaterally - Cardiovascular Cardiovascular Exam: Present: regular rate, normal rhythm, normal heart sounds - GI/Abdominal GI/Abdominal exam: Present: soft, normal bowel sounds. Absent: distended, tenderness, guarding, rebound, rigid, organomegaly, mass, bruit, pulsatile mass, hernia - Extremities Exam Extremities exam: Present: normal inspection, full ROM, normal capillary refill - Back Exam Back exam: Present: normal inspection, full ROM, CVA tenderness (R). Absent: CVA tenderness (L), muscle spasm, paraspinal tenderness, vertebral tenderness - Neurological Exam Neurological exam: Present: alert, oriented X3, CN II-XII intact, normal gait, reflexes normal - Skin Skin exam: Present: warm, intact, normal color ED Course Vital Signs 06/30/18 06/30/18 13:51 17:25 Temperature 98.1 F Pulse Rate 102 H Respiratory 16 Rate Blood Pressure 218/118 185/107 O2 Sat by Pulse 98 Oximetry ED Medical Decision Making - Lab Data Result diagrams: 06/30/18 17:19 06/30/18 17:19 - Radiology Data Radiology results: report reviewed Referring Physician: MELVA DALTON Patient Name: SHLOMO DECKER Date of : 1980 Sex: Female Report Date: 2018-06-30 Report Status: [place] [address] Cat Scan Report Signed Patient: SHLOMO DECKER MR#: [id number] : 1980 Acct:[id number] Age/Sex: 38 / F ADM Date: 06/30/18 Loc: ED Attending Dr: Ordering Physician: MELVA DALTON Date of Service: 06/30/18 Procedure(s): CT abdomen pelvis w con Accession Number(s): [id number] cc: MELVA DALTON FINAL REPORT EXAM: CT ABD AND PELVIS W CONTRAST HISTORY: RLQ AND RIGHT FLANK PAIN. H/O KIDNEY STONES WITH STENT REMOVAL AND FATTY LIVER PER PATIENT. TECHNIQUE: CT abdomen and pelvis with intravenous contrast PRIORS: None. FINDINGS: No acute abnormality identified in the lung bases. No focal abnormality identified within the liver parenchyma. The spleen demonstrates normal size and attenuation. No pancreatic abnormalities seen. The right kidney there are 6 small nonobstructing renal calculi identified largest measuring 3 millimeters. No ureteral calculus no evidence for hydronephrosis Within the left kidney there are 3 small nonobstructing calculi largest 3 millimeters. No reach ureteral calculus identified. No evidence for hydronephrosis. The adrenal glands are unremarkable Abdominal aorta is normal in caliber. No pathologically enlarged lymph nodes are identified. No signs of free fluid or free air No evidence of small bowel dilatation. Colon is nondistended. No pericolonic inflammatory change. Urinary bladder is unremarkable. IMPRESSION: Negative. No acute abnormalities seen Transcribed By: BRENDA Dictated By: SARITA STOCK MD Electronically Authenticated By: SARITA STOCK MD Signed Date/Time: 06/30/182126 DD/ 25 TD/TT: 06/30/182125 - Medical Decision Making Patient evaluated by me multiple times. Patient stated that she is feeling much better. Urine is positive for bladder infection. CT abdomen and pelvis is unremarkable. I will discharge patient on Macrobid for 7 days and advised the patient to follow up with her primary care physician in the next 2-3 days. Critical care attestation.: If time is entered above; I have spent that time in minutes in the direct care of this critically ill patient, excluding procedure time. ED Disposition Clinical Impression: Abdominal pain, UTI (urinary tract infection) Disposition: - TO HOME OR SELFCARE Is pt being admited?: No Condition: Stable Instructions: Sexually Transmitted Diseases (ED), Urinary Tract Infection in Women (ED), Abdominal Pain (ED) Referrals: ORIN LAIRD MD [Primary Care Provider] - 3-5 Days
[2018-06-30 17:30] LABS: Bilirubin,Urine NEG (Negative); Blood,Urine NEG (Negative); Color,Urine Yellow (Yellow); Urobilinogen,Urine < 2.0 mg/dL (<2.0)
[2018-06-30 17:40] LABS: Basophils # (Auto) 0.1 K/mm3 (0.0-0.1); Basophils % (Auto) 0.6 % (0.0-1.8); Eosinophils # (Auto) 0.1 K/mm3 (0.0-0.4); Eosinophils % (Auto) 0.9 % (0.0-4.3); Hematocrit 44.2 % (30.3-42.9); Hemoglobin 14.8 gm/dl (10.1-14.3); Lymphocytes # (Auto) 3.6 K/mm3 (1.2-5.4); Lymphocytes % (Auto) 26.2 % (13.4-35.0); Mean Corpuscular HGB Conc 34 % (30-34); Mean Corpuscular Volume 91 fl (79-97); Monocytes # (Auto) 1.1 K/mm3 (0.0-0.8); Monocytes % (Auto) 7.6 % (0.0-7.3); Platelet Count 230 K/mm3 (140-440); Red Blood Count 4.87 M/mm3 (3.65-5.03); Red Cell Distribution Width 14.2 % (13.2-15.2)
[2018-06-30 18:07] LABS: INR 0.99 (0.87-1.13); Partial Thromboplastin Time 23.2 Sec. (24.2-36.6)
[2018-06-30 18:08] LABS: Alanine Aminotransferase 18 units/L (7-56); BUN/Creatinine Ratio 17; Blood Urea Nitrogen 12 mg/dL (7-17); Hemolysis Index 4
[2018-06-30] MEDS ORDERED: ROCEPHIN/NS 1 GM/50 ML 1 GM/50 ML BAG IV ONE (18:11)
[2018-06-30] MEDS ORDERED: SUBLIMAZE IV ONE ×2 (18:50→21:40)
[2018-06-30] MEDS ORDERED: SUBLIMAZE ONE ×2 (18:54→21:35)
[2018-06-30 19:06] LABS: HCG Qualitative,Urine Negative (Negative)
--- NOTE | 2018-06-30 21:27 | Cat Scan Report ---
FINAL REPORT EXAM: CT ABD AND PELVIS W CONTRAST HISTORY: RLQ AND RIGHT FLANK PAIN. H/O KIDNEY STONES WITH STENT REMOVAL AND FATTY LIVER PER PATIENT. TECHNIQUE: CT abdomen and pelvis with intravenous contrast PRIORS: None. FINDINGS: No acute abnormality identified in the lung bases. No focal abnormality identified within the liver parenchyma. The spleen demonstrates normal size and attenuation. No pancreatic abnormalities seen. The right kidney there are 6 small nonobstructing renal calculi identified largest measuring 3 millim eters. No ureteral calculus no evidence for hydronephrosis Within the left kidney there are 3 small nonobstructing calculi largest 3 millimeters. No reach urete ral calculus identified. No evidence for hydronephrosis. The adrenal glands are unremarkable Abdominal aorta is normal in caliber. No pathologically enlarged lymph nodes are identified. No signs of free fluid or free air No evidence of small bowel dilatation. Colon is nondistended. No pericolonic inflammatory change. Urinary bladder is unremarkable. IMPRESSION: Negative. No acute abnormalities seen
[2018-07-01 07:31] VITALS: BP 225/127
== END 2018-06-30 22:20 | disposition home or self-care (01) ==
LOC: ED 13:11
DX: N39.0 Urinary tract infection, site not specified (principal); I10 Essential (primary) hypertension; I25.2 Old myocardial infarction; E11.9 Type 2 diabetes mellitus without complications; Z87.442 Personal history of urinary calculi; Z88.1 Allergy status to other antibiotic agents; Z88.8 Allergy status to other drugs, medicaments and biological substances
CPT/HCPCS: 36415; 74177; 80053; 81001; 81025; 85025; 85610; 85730; 96365; 96375; 96376; 99284; J0696; J2270; J2405; J3010; Q9967

== ENCOUNTER 2018-08-10 19:37 | Inpatient (IN) | payer OTHER ==
--- NOTE | 2018-08-10 19:58 | Emergency Department Report ---
Blank Doc - Documentation Documentation: This is a 38-year-old female that presents with chest pain with shortness of b reathe. Stated has radiation to back. Patient was just released from [facility] for A-fib and CHF. HJas taken 3 nitroglycrin. This initial assessment/diagnostic orders/clinical plan/treatment(s) is/are subject to change based on patient's health status, clinical progression and re- assessment by fellow clinical providers in the ED. Further treatment and workup at subsequent clinical providers discretion. Patient/guardians urged not to elope from the ED as their condition may be serious if not clinically assessed and managed. Initial orders include: 1- Patient sent to MAIN for further evaluation and treatment 2- labs 3- EKG 4- CXR
[2018-08-10 20:13] LABS: Basophils # (Auto) 0.1 K/mm3 (0.0-0.1); Basophils % (Auto) 0.6 % (0.0-1.8); Eosinophils # (Auto) 0.2 K/mm3 (0.0-0.4); Eosinophils % (Auto) 1.5 % (0.0-4.3); Hematocrit 39.8 % (30.3-42.9); Hemoglobin 13.4 gm/dl (10.1-14.3); Lymphocytes # (Auto) 3.3 K/mm3 (1.2-5.4); Lymphocytes % (Auto) 29.1 % (13.4-35.0); Mean Corpuscular HGB Conc 34 % (30-34); Mean Corpuscular Volume 93 fl (79-97); Monocytes # (Auto) 0.9 K/mm3 (0.0-0.8); Platelet Count 224 K/mm3 (140-440); Red Blood Count 4.31 M/mm3 (3.65-5.03); Red Cell Distribution Width 14.1 % (13.2-15.2)
[2018-08-10 20:27] LABS: Alanine Aminotransferase 27 units/L (7-56); Albumin 3.7 g/dL (3.9-5); BUN/Creatinine Ratio 24; Blood Urea Nitrogen 17 mg/dL (7-17); Hemolysis Index 8
[2018-08-10 20:29] LABS: INR 0.95 (0.87-1.13)
[2018-08-10 20:30] LABS: Partial Thromboplastin Time 23.5 Sec. (24.2-36.6)
--- NOTE | 2018-08-10 21:24 | XRay Report ---
PROCEDURE: XR CHEST ROUTINE 2V TECHNIQUE: Chest radiograph, PA and lateral views HISTORY: Chest Pain COMPARISONS: 02/20/2018 FINDINGS: Cardiomediastinal silhouette is within normal limits. No infiltrate, effusion, or pneumothorax is see n. No acute osseous abnormality is seen. IMPRESSION: No radiographic evidence of acute abnormality This document is electronically signed by Kayla Delarosa MD., August 10 2018 09:22:31 PM ET
[2018-08-10 23:01] LABS: Bilirubin,Urine NEG (Negative); Blood,Urine NEG (Negative); Color,Urine Yellow (Yellow); Mucus,Urine FEW /HPF; Protein,Urine <15 mg/dL mg/dL (Negative); Urobilinogen,Urine < 2.0 mg/dL (<2.0)
[2018-08-10 23:09] LABS: Amphetamine Screen,Urine PRESUMPTIVE NEGATIVE; Benzodiazepines Screen,Urine PRESUMPTIVE NEGATIVE; Cannabinoid Screen,Urine PRESUMPTIVE NEGATIVE; Cocaine Screen,Urine PRESUMPTIVE NEGATIVE; Methadone Screen,Urine PRESUMPTIVE NEGATIVE; Opiate Screen,Urine PRESUMPTIVE NEGATIVE
[2018-08-11] MEDS ORDERED: ZOFRAN IV ONE (00:04)
[2018-08-11] MEDS ORDERED: SUBLIMAZE IV ONE (00:04)
[2018-08-11] MEDS ORDERED: NITRO-BID 2% TP ONE (00:04)
--- NOTE | 2018-08-11 00:16 | Emergency Department Report ---
HPI - General Chief Complaint: Chest Pain Time Seen by Provider: 08/10/18 19:56 - HPI HPI: Room 17 The patient is a 38-year-old female presented with a chief complaint of chest pain. The patient states she was at rest today when she began to have palpit ations and substernal chest pain described as sharp and radiating to her shoulder. The patient states she would take a nitroglycerin which only temporarily relieved the pain. After taking her third nitroglycerin the patient states she decided to come to the emergency department. Patient states she has had shortness of breath, diaphoresis and nausea without vomiting associated with her chest pain. Chest pain has been intermittent and she currently gives a score of 8/10. The patient states she was admitted to [facility] approximately 2 weeks ago for similar episode and underwent stress test but she is not certain of the results. The patient states she also had a CT scan of her chest performed at that time. The patient states her last cardiac catheterization occurred approximately 3 years ago when she had a cardiac stent placed Location: Chest Duration: Intermittent Times one day Quality: Sharp Severity: 8/10 Modifying factors: [see above] Context: [see above] Mode of transportation: [not driving] ED Past Medical Hx - Past Medical History Hx Hypertension: Yes Hx Heart Attack/AMI: Yes Hx Diabetes: Yes Hx Kidney Stones: Yes Additional medical history: Flash pulmonary edema, kidney stents - Surgical History Additional Surgical History: C/S, renal stents, Heart stent in the LAD 2 yrs ago - Family History Family history: no significant - Social History Smoking Status: Former Smoker (none 3 years) Substance Use Type: None (denies illicit drug use) - Medications Home Medications: Home Medications Medication Instructions Recorded Confirmed Last Taken Type Atorvastatin Calcium [Lipitor] 40 mg PO HS 01/27/18 02/20/18 02/19/18 History Dicyclomine [Bentyl] 20 mg PO Q6H 01/27/18 02/20/18 02/20/18 History Insulin Glargine,Hum.rec.anlog 56 units SUB-Q BID 01/27/18 02/20/18 02/20/18 History [Basaglar Kwikpen U-100] Insulin Lispro [HumaLOG VIAL] 20 units SUB-Q TIDWM 01/27/18 02/20/18 02/20/18 History Lisinopril [Zestril] 20 mg PO QDAY 01/27/18 02/20/18 02/20/18 History Sucralfate [Carafate] 1 gm PO ACHS #300 ml 01/27/18 02/20/18 02/19/18 Rx hydroCHLOROthiazide [HCTZ] 25 mg PO QDAY 01/27/18 02/20/18 02/20/18 History Calcium Carbonate [Tums] 500 mg PO DAILY tablet 02/21/18 Unknown Rx Carvedilol [Coreg] 25 mg PO BIDWM #60 tablet 02/21/18 Unknown Rx Pantoprazole [Protonix TAB] 40 mg PO QAM #14 tablet 02/21/18 Unknown Rx Sertraline [Zoloft] 50 mg PO QDAY tablet 02/21/18 Unknown Rx Amlodipine Besylate [Norvasc] 5 mg PO QDAY #30 tablet 02/22/18 Unknown Rx Aspirin [Aspirin BABY CHEW TAB] 81 mg PO QDAY tab.chew 02/22/18 Unknown Rx Clopidogrel Bisulfate [Plavix] 75 mg PO QPM #30 tablet 02/22/18 Unknown Rx cloNIDine [Catapres] 0.1 mg PO BID #60 tablet 02/22/18 Unknown Rx Tramadol HCl [Ultram] 50 mg PO Q6H PRN #10 tablet 04/24/18 Unknown Rx Nitrofurantoin [place]/M-Cryst 100 mg PO Q12HR #14 capsule 06/30/18 Unknown Rx [Macrobid CAP] Ondansetron [Zofran Odt] 4 mg PO Q8HR PRN #14 tab.rapdis 06/30/18 Unknown Rx metroNIDAZOLE [Flagyl] 500 mg PO Q12HR #10 tab 06/30/18 Unknown Rx traMADol [Ultram] 50 mg PO Q6HR PRN #14 tablet 06/30/18 Unknown Rx ED Review of Systems ROS: Stated complaint: CHEST PAIN/AFIB Other details as noted in HPI Constitutional: diaphoresis Eyes: denies: eye pain ENT: denies: throat pain Respiratory: shortness of breath Cardiovascular: chest pain, palpitations Endocrine: no symptoms reported Gastrointestinal: nausea. denies: vomiting Genitourinary: denies: dysuria Musculoskeletal: denies: back pain Neurological: denies: headache Physical Exam - Physical Exam Vital Signs: Vital Signs 08/10/18 08/10/18 19:44 19:56 Temperature 98.1 F 98.1 F Pulse Rate 82 82 Respiratory 18 20 Rate Blood Pressure 163/97 Blood Pressure 163/97 [Right] O2 Sat by Pulse 99 99 Oximetry Physical Exam: GENERAL: The patient is well-developed well-nourished female lying on stretcher not appearing to be in acute distress. [] HEENT: Normocephalic. Atraumatic. Extraocular motions are intact. Patient has moist mucous membranes. NECK: Supple. Trachea midline CHEST/LUNGS: Clear to auscultation. There is no respiratory distress noted. HEART/CARDIOVASCULAR: Regular. There is no tachycardia. There is no gallop rub or murmur. ABDOMEN: Abdomen is soft, nontender. Patient has normal bowel sounds. There is no abdominal distention. SKIN: There is no rash. There is no edema. There is no diaphoresis. NEURO: The patient is awake, alert, and oriented. The patient is cooperative. The patient has normal speech MUSCULOSKELETAL: There is no evidence of acute injury. ED Course Vital Signs 08/10/18 08/10/18 19:44 19:56 Temperature 98.1 F 98.1 F Pulse Rate 82 82 Respiratory 18 20 Rate Blood Pressure 163/97 Blood Pressure 163/97 [Right] O2 Sat by Pulse 99 99 Oximetry ED Medical Decision Making - Lab Data Result diagrams: 08/10/18 20:00 08/10/18 20:00 Laboratory Tests 08/10/18 08/10/18 08/10/18 20:00 20:00 20:00 WBC 11.3 H RBC 4.31 Hgb 13.4 Hct 39.8 MCV 93 MCH 31 MCHC 34 RDW 14.1 Plt Count 224 Lymph % (Auto) 29.1 [place] % (Auto) 8.0 H Eos % (Auto) 1.5 Baso % (Auto) 0.6 Lymph # 3.3 [place] # 0.9 H Eos # 0.2 Baso # 0.1 Seg Neutrophils % 60.8 Seg Neutrophils # 6.9 PT 13.2 INR 0.95 APTT 23.5 L Sodium 135 L Potassium 4.1 Chloride 99.0 Carbon Dioxide 23 Anion Gap 17 BUN 17 Creatinine 0.7 Estimated GFR > 60 BUN/Creatinine Ratio 24 Glucose 243 H Calcium 9.0 Total Bilirubin 0.30 AST 24 ALT 27 Alkaline Phosphatase 63 Troponin T < 0.010 Total Protein 7.2 Albumin 3.7 L Albumin/Globulin Ratio 1.1 HCG, Qual Urine Color Urine Turbidity Urine pH Ur Specific [place] Urine Protein Urine Glucose (UA) Urine Ketones Urine Blood Urine Nitrite Urine Bilirubin Urine Urobilinogen Ur Leukocyte Esterase Urine WBC (Auto) Urine RBC (Auto) U Epithel Cells (Auto) Urine Mucus Urine Opiates Screen Urine Methadone Screen Ur Barbiturates Screen Ur Phencyclidine Scrn Ur Amphetamines Screen U Benzodiazepines Scrn Urine Cocaine Screen U Marijuana (THC) Screen Drugs of Abuse Note 08/10/18 08/10/18 08/10/18 20:00 22:16 22:16 WBC RBC Hgb Hct MCV MCH MCHC RDW Plt Count Lymph % (Auto) [place] % (Auto) Eos % (Auto) Baso % (Auto) Lymph # [place] # Eos # Baso # Seg Neutrophils % Seg Neutrophils # PT INR APTT Sodium Potassium Chloride Carbon Dioxide Anion Gap BUN Creatinine Estimated GFR BUN/Creatinine Ratio Glucose Calcium Total Bilirubin AST ALT Alkaline Phosphatase Troponin T Total Protein Albumin Albumin/Globulin Ratio HCG, Qual Negative Urine Color Yellow Urine Turbidity Clear Urine pH 6.0 Ur Specific [place] 1.027 Urine Protein <15 mg/dl Urine Glucose (UA) 50 Urine Ketones Neg Urine Blood Neg Urine Nitrite Neg Urine Bilirubin Neg Urine Urobilinogen < 2.0 Ur Leukocyte Esterase Neg Urine WBC (Auto) 1.0 Urine RBC (Auto) 2.0 U Epithel Cells (Auto) 3.0 Urine Mucus Few Urine Opiates Screen Presumptive negative Urine Methadone Screen Presumptive negative Ur Barbiturates Screen Presumptive positive Ur Phencyclidine Scrn Presumptive negative Ur Amphetamines Screen Presumptive negative U Benzodiazepines Scrn Presumptive negative Urine Cocaine Screen Presumptive negative U Marijuana (THC) Screen Presumptive negative Drugs of Abuse Note Disclamer 08/10/18 22:33 WBC RBC Hgb Hct MCV MCH MCHC RDW Plt Count Lymph % (Auto) [place] % (Auto) Eos % (Auto) Baso % (Auto) Lymph # [place] # Eos # Baso # Seg Neutrophils % Seg Neutrophils # PT INR APTT Sodium Potassium Chloride Carbon Dioxide Anion Gap BUN Creatinine Estimated GFR BUN/Creatinine Ratio Glucose Calcium Total Bilirubin AST ALT Alkaline Phosphatase Troponin T < 0.010 Total Protein Albumin Albumin/Globulin Ratio HCG, Qual Urine Color Urine Turbidity Urine pH Ur Specific [place] Urine Protein Urine Glucose (UA) Urine Ketones Urine Blood Urine Nitrite Urine Bilirubin Urine Urobilinogen Ur Leukocyte Esterase Urine WBC (Auto) Urine RBC (Auto) U Epithel Cells (Auto) Urine Mucus Urine Opiates Screen Urine Methadone Screen Ur Barbiturates Screen Ur Phencyclidine Scrn Ur Amphetamines Screen U Benzodiazepines Scrn Urine Cocaine Screen U Marijuana (THC) Screen Drugs of Abuse Note - EKG Data -: EKG Interpreted by Me EKG shows normal: sinus rhythm Rate: normal - EKG Data When compared to previous EKG there are: no significant change Interpretation: unchanged when compared t (no significant changes compared to previous EKG dated 02/21/2018) - Radiology Data Radiology results: report reviewed (chest x-ray), image reviewed (chest x-ray) interpreted by me: Chest x-ray-no focal infiltrates, no pneumothorax [facility] [address] [place] [address] XRay Report Signed Patient: SHLOMO DECKER MR#: [id number] : 1980 Acct:[id number] Age/Sex: 38 / F ADM Date: 08/10/18 Loc: ED Attending Dr: Ordering Physician: ROWDY BRAGA NP Date of Service: 08/10/18 Procedure(s): XR chest routine 2V Accession Number(s): [id number] cc: ROWDY BRAGA NP Fluoro Time In Minutes: PROCEDURE: XR CHEST ROUTINE 2V TECHNIQUE: Chest radiograph, PA and lateral views HISTORY: Chest Pain COMPARISONS: 02/20/2018 FINDINGS: Cardiomediastinal silhouette is within normal limits. No infiltrate, effusion, or pneumothorax is seen. No acute osseous abnormality is seen. IMPRESSION: No radiographic evidence of acute abnormality This document is electronically signed by Kayla Delarosa MD., August 10 2018 09:22:31 PM ET Transcribed By: [facility] Dictated By: KAYLA DELAROSA M.D. Electronically Authenticated By: KAYLA JERNIGAN M.D. Signed Date/Time: 08/10/182123 DD/ 10 TD/TT: 08/10/182110 - Differential Diagnosis ACS, pericarditis, GERD Critical care attestation.: If time is entered above; I have spent that time in minutes in the direct care of this critically ill patient, excluding procedure time. ED Disposition Clinical Impression: Chest pain Disposition: DC- OP ADMIT IP TO THIS HOSP Is pt being admited?: Yes Does the pt Need Aspirin: Yes Condition: Fair Instructions: Chest Pain (ED) Time of Disposition: 00:19 (hospitalist paged (Dr Yap))
[2018-08-11] MEDS ORDERED: ASPIRIN PO ONE (00:20)
[2018-08-11] MEDS ORDERED: PERCOCET 5/325 PO PRN (01:49)
[2018-08-11] MEDS ORDERED: TYLENOL PO PRN (01:49)
[2018-08-11] MEDS ORDERED: ZOFRAN IV PRN (01:49)
[2018-08-11] MEDS ORDERED: SODIUM CHLORIDE FLUSH SYRINGE 10 ML IV PRN ×2 (01:49)
[2018-08-11] MEDS ORDERED: NITROSTAT SL PRN (01:49)
[2018-08-11 02:54] LABS: Basophils # (Auto) 0.1 K/mm3 (0.0-0.1); Eosinophils # (Auto) 0.2 K/mm3 (0.0-0.4); Eosinophils % (Auto) 1.6 % (0.0-4.3); Hemoglobin 12.8 gm/dl (10.1-14.3); Lymphocytes % (Auto) 29.7 % (13.4-35.0); Mean Corpuscular HGB Conc 34 % (30-34); Mean Corpuscular Volume 92 fl (79-97); Monocytes # (Auto) 0.7 K/mm3 (0.0-0.8); Monocytes % (Auto) 7.4 % (0.0-7.3); Platelet Count 221 K/mm3 (140-440); Red Blood Count 4.14 M/mm3 (3.65-5.03); Red Cell Distribution Width 13.7 % (13.2-15.2)
--- NOTE | 2018-08-11 03:11 | History and Physical Report ---
History of Present Illness Date of examination: 08/11/18 Date of admission: 08/11/18 01:49 Chief complaint: chest pain, sob, rt upper quadrant pain History of present illness: Pt is a 38-year-old female with PE MHO CAD/CHF, history of SC status post stent placement, hypertension, hyperlipidemia, DM type I, who presents to the ER complaint of chest pain. The patient states that the pain started suddenly while resting, lean on her back, she will reports a sharp chest pain associated with palpitation, sweating and shortness of breath. The patient states that the pain radiates to her shoulder parametric was called and she was taking to the ER. Patient states that she was giving 3 nitroglycerins sublingual with relief of the pain. Patient states that last Friday she was having similar chest pain and palpitation, she was hospitalized for 6 days, was diagnosed with A-Fib and was in subQ blood thinner, she was told that she will be continuing blood thinner at home but she was discharged without a prescription. Patient reported about 3 years ago, she had an SC with occlusion of her LAD that requires a stent placement. Patient was evaluated in the ER, her cardiac enzymes were negative, EKG showed no STEMI criteria patient was admitted for further evaluation of her symptoms. Past History Past Medical History: atrial fib, CAD, hypertension, hyperlipidemia Medications and Allergies Allergies Allergy/AdvReac Type Severity Reaction Status Date / Time azithromycin [From Zithromax] Allergy Swelling Verified 06/30/18 13:54 diphenhydramine Allergy Angioedema Verified 01/27/18 12:51 [From Benadryl] ketorolac [From Toradol] Allergy Angioedema Verified 01/27/18 12:51 metformin Allergy Rash Verified 01/27/18 12:51 naproxen Allergy Hives Verified 01/27/18 12:51 nonoxynol 9 Allergy Swelling Verified 01/27/18 12:51 [From [place] Plus Spermicidal Jelly] Home Medications Medication Instructions Recorded Confirmed Last Taken Type Atorvastatin Calcium [Lipitor] 20 mg PO HS 01/27/18 08/11/18 08/10/18 History Insulin Glargine,Hum.rec.anlog 40 units SUB-Q BID 01/27/18 08/11/18 08/10/18 History [Maycol Murphy U-100] Insulin Lispro [HumaLOG VIAL] 20 units SUB-Q TIDWM 01/27/18 08/11/18 08/10/18 History Lisinopril [Zestril] 20 mg PO QDAY 01/27/18 08/11/18 08/10/18 History Carvedilol [Coreg] 25 mg PO BIDWM #60 tablet 02/21/18 08/11/18 08/10/18 Rx Aspirin [Aspirin BABY CHEW TAB] 81 mg PO QDAY tab.chew 02/22/18 08/11/18 08/10/18 Rx Furosemide [Lasix TAB] 40 mg PO QDAY 08/11/18 08/11/18 08/10/18 History Active Meds: Active Medications Acetaminophen (Tylenol) 650 mg PO Q4H PRN PRN Reason: Pain MILD(1-3)/Fever >100.5/HOOK Aspirin (Ecotrin) 325 mg PO QDAY ALEJANDRA Nitroglycerin (Nitrostat) 0.4 mg SL Q5M PRN PRN Reason: Chest Pain Ondansetron HCl (Zofran) 4 mg IV Q8H PRN PRN Reason: Nausea And Vomiting Oxycodone/Acetaminophen (Percocet 5/325) 1 tab PO Q6H PRN PRN Reason: Pain, Moderate (4-6) Sodium Chloride (Sodium Chloride Flush Syringe 10 Ml) 10 ml IV BID ALEJANDRA Sodium Chloride (Sodium Chloride Flush Syringe 10 Ml) 10 ml IV PRN PRN PRN Reason: LINE FLUSH Exam - Constitutional Vitals: Temp Pulse Resp BP Pulse Ox 98.1 F 66 9 L 111/57 98 08/10/18 19:56 08/11/18 02:31 08/11/18 02:31 08/11/18 02:31 08/11/18 02:31 Results - Labs CBC & Chem 7: 08/11/18 05:50 08/11/18 02:29 Labs: Laboratory Last Values WBC 10.0 K/mm3 (4.5-11.0) 08/11/18 02:29 RBC 4.14 M/mm3 (3.65-5.03) 08/11/18 02:29 Hgb 12.8 gm/dl (10.1-14.3) 08/11/18 02:29 Hct 38.0 % (30.3-42.9) 08/11/18 02:29 MCV 92 fl (79-97) 08/11/18 02:29 MCH 31 pg (28-32) 08/11/18 02:29 MCHC 34 % (30-34) 08/11/18 02:29 RDW 13.7 % (13.2-15.2) 08/11/18 02:29 Plt Count 221 K/mm3 (140-440) 08/11/18 02:29 Lymph % (Auto) 29.7 % (13.4-35.0) 08/11/18 02:29 [place] % (Auto) 7.4 % (0.0-7.3) H 08/11/18 02:29 Eos % (Auto) 1.6 % (0.0-4.3) 08/11/18 02:29 Baso % (Auto) 1.0 % (0.0-1.8) 08/11/18 02:29 Lymph # 3.0 K/mm3 (1.2-5.4) 08/11/18 02:29 [place] # 0.7 K/mm3 (0.0-0.8) 08/11/18 02:29 Eos # 0.2 K/mm3 (0.0-0.4) 08/11/18 02:29 Baso # 0.1 K/mm3 (0.0-0.1) 08/11/18 02:29 Seg Neutrophils % 60.3 % (40.0-70.0) 08/11/18 02:29 Seg Neutrophils # 6.0 K/mm3 (1.8-7.7) 08/11/18 02:29 PT 13.2 Sec. (12.2-14.9) 08/10/18 20:00 INR 0.95 (0.87-1.13) 08/10/18 20:00 APTT 23.5 Sec. (24.2-36.6) L 08/10/18 20:00 Sodium 135 mmol/L (137-145) L 08/10/18 20:00 Potassium 4.1 mmol/L (3.6-5.0) 08/10/18 20:00 Chloride 99.0 mmol/L (98-107) 08/10/18 20:00 Carbon Dioxide 23 mmol/L (22-30) 08/10/18 20:00 Anion Gap 17 mmol/L 08/10/18 20:00 BUN 17 mg/dL (7-17) 08/10/18 20:00 Creatinine 0.7 mg/dL (0.7-1.2) 08/10/18 20:00 Estimated GFR > 60 ml/min 08/10/18 20:00 BUN/Creatinine Ratio 24 % 08/10/18 20:00 Glucose 243 mg/dL (65-100) H 08/10/18 20:00 Calcium 9.0 mg/dL (8.4-10.2) 08/10/18 20:00 Total Bilirubin 0.30 mg/dL (0.1-1.2) 08/10/18 20:00 AST 24 units/L (5-40) 08/10/18 20:00 ALT 27 units/L (7-56) 08/10/18 20:00 Alkaline Phosphatase 63 units/L (35-129) 08/10/18 20:00 Troponin T < 0.010 ng/mL (0.00-0.029) 08/10/18 22:33 Total Protein 7.2 g/dL (6.3-8.2) 08/10/18 20:00 Albumin 3.7 g/dL (3.9-5) L 08/10/18 20:00 Albumin/Globulin Ratio 1.1 % 08/10/18 20:00 HCG, Qual Negative (Negative) 08/10/18 20:00 Urine Color Yellow (Yellow) 08/10/18 22:16 Urine Turbidity Clear (Clear) 08/10/18 22:16 Urine pH 6.0 (5.0-7.0) 08/10/18 22:16 Ur Specific [place] 1.027 (1.003-1.030) 08/10/18 22:16 Urine Protein <15 mg/dl mg/dL (Negative) 08/10/18 22:16 Urine Glucose (UA) 50 mg/dL (Negative) 08/10/18 22:16 Urine Ketones Neg mg/dL (Negative) 08/10/18 22:16 Urine Blood Neg (Negative) 08/10/18 22:16 Urine Nitrite Neg (Negative) 08/10/18 22:16 Urine Bilirubin Neg (Negative) 08/10/18 22:16 Urine Urobilinogen < 2.0 mg/dL (<2.0) 08/10/18 22:16 Ur Leukocyte Esterase Neg (Negative) 08/10/18 22:16 Urine WBC (Auto) 1.0 /HPF (0.0-6.0) 08/10/18 22:16 Urine RBC (Auto) 2.0 /HPF (0.0-6.0) 08/10/18 22:16 U Epithel Cells (Auto) 3.0 /HPF (0-13.0) 08/10/18 22:16 Urine Mucus Few /HPF 08/10/18 22:16 Urine Opiates Screen Presumptive negative 08/10/18 22:16 Urine Methadone Screen Presumptive negative 08/10/18 22:16 Ur Barbiturates Screen Presumptive positive 08/10/18 22:16 Ur Phencyclidine Scrn Presumptive negative 08/10/18 22:16 Ur Amphetamines Screen Presumptive negative 08/10/18 22:16 U Benzodiazepines Scrn Presumptive negative 08/10/18 22:16 Urine Cocaine Screen Presumptive negative 08/10/18 22:16 U Marijuana (THC) Screen Presumptive negative 08/10/18 22:16 Drugs of Abuse Note Disclamer 08/10/18 22:16 Assessment and Plan Assessment and plan: 1. Chest pain rule out ACS 2. CAD status post stent 2015 3. CHF (stable last EF 45%) 4. Hyperlipidemia 5. Hypertension (stable) 7. DM type II on insulin 8. Left upper quadrant pain (etiology unknown) 9. Morbid Obesity Plan: Admit patient to med telemetry Keep nothing by mouth post midnight Continue cardiac enzymes every 6 hours 2 Glycemic management with insulin sliding scale Resume home meds Consults cardiology for chest pain/CAD CT scan of the abdomen to rule out etiology of pain Advance Directives: Yes VTE prophylaxis?: Chemical Plan of care discussed with patient/family: Yes
[2018-08-11 03:25] LABS: BUN/Creatinine Ratio 23; Blood Urea Nitrogen 14 mg/dL (7-17); Calcium 8.7 mg/dL (8.4-10.2); Hemolysis Index 36
[2018-08-11] MEDS: MORPHINE IV PRN ×5 (05:10→22:51)
[2018-08-11] MEDS ORDERED: LASIX PO SCH (06:00)
[2018-08-11 06:30] LABS: Basophils # (Auto) 0.1 K/mm3 (0.0-0.1); Basophils % (Auto) 0.6 % (0.0-1.8); Eosinophils # (Auto) 0.1 K/mm3 (0.0-0.4); Eosinophils % (Auto) 1.6 % (0.0-4.3); Hematocrit 37.2 % (30.3-42.9); Hemoglobin 12.5 gm/dl (10.1-14.3); Lymphocytes # (Auto) 2.8 K/mm3 (1.2-5.4); Lymphocytes % (Auto) 30.5 % (13.4-35.0); Mean Corpuscular HGB Conc 34 % (30-34); Mean Corpuscular Volume 92 fl (79-97); Monocytes # (Auto) 0.7 K/mm3 (0.0-0.8); Monocytes % (Auto) 7.4 % (0.0-7.3); Platelet Count 213 K/mm3 (140-440); Red Blood Count 4.04 M/mm3 (3.65-5.03); Red Cell Distribution Width 13.8 % (13.2-15.2)
[2018-08-11 07:49] LABS: Chol/HDL Ratio 4.78 %
--- NOTE | 2018-08-11 08:16 | Event Note ---
Date: 08/11/18 patient seen and examined UDS is positive for barbiturates Had two stress test on 12/2017 and 01/2018 will monitor with serial trop - 1st one negative will hold stress test, will consult cardiology for further assessment
[2018-08-11] MEDS ORDERED: INSULIN GLARGINE HUM REC ANLOG 40 UNIT SUB-Q SCH (10:00)
[2018-08-11] MEDS: COREG PO SCH ×2 (10:10→18:28)
[2018-08-11] MEDS: SODIUM CHLORIDE FLUSH SYRINGE 10 ML IV SCH ×2 (10:10→22:54)
[2018-08-11] MEDS: ZESTRIL PO SCH (10:10)
[2018-08-11] MEDS: LASIX PO SCH (10:10)
[2018-08-11] MEDS: HumaLOG SUB-Q SCH ×3 (10:10→18:28)
--- NOTE | 2018-08-11 11:26 | Consultation ---
History of Present Illness Consult date: 08/11/18 Requesting physician: DANNI CRAWFORD Consult reason: chest pain History of present illness: The patient is a 38-year-old female with a past medical history of reported AMI with PCI of LAD in 2016 at [facility], HF, ? paroxysmal AFib, HTN, DM, HLP, GERD, anxiety. She is previously unknown to our practice. She reports that she was previously followed by [facility] oracle ascp consultant several years ago. She presented with a chief complaint of chest pain. The patient states she was at rest today when she began to have palpitations and substernal chest pain described as sharp, intermittent pain which radiated to her shoulder and upper back. She took SL nitro which temporarily relieved her pain each time. After taking her third nitroglycerin the patient states she decided to come to the emergency department. Patient states she has had shortness of breath, diaphoresis and nausea without vomiting associated with her chest pain. The patient states she was admitted to [facility] last week (discharged on Friday) for similar episode and underwent stress test and echo and was told stress test was negative and echo showed EF 45%. Pt reports that she was diagnosed with "flash pulmonary edema", HTN, HF and atrial fibrillation during that hospitalization. The patient states she also had a CT scan of her chest performed at that time and believes the scan was normal. The patient states her last cardiac catheterization occurred approximately 3 years ago when she had a cardiac stent placed. Past History Past Medical History: atrial fib, CAD, diabetes, GERD, hypertension, hyperlipidemia Past Surgical History: PTCA Social history: smoking (former). denies: alcohol abuse, prescription drug abuse Medications and Allergies Allergies Allergy/AdvReac Type Severity Reaction Status Date / Time azithromycin [From Zithromax] Allergy Swelling Verified 06/30/18 13:54 diphenhydramine Allergy Angioedema Verified 01/27/18 12:51 [From Benadryl] ketorolac [From Toradol] Allergy Angioedema Verified 01/27/18 12:51 metformin Allergy Rash Verified 01/27/18 12:51 naproxen Allergy Hives Verified 01/27/18 12:51 nonoxynol 9 Allergy Swelling Verified 01/27/18 12:51 [From [place] Plus Spermicidal Jelly] Home Medications Medication Instructions Recorded Confirmed Last Taken Type Atorvastatin Calcium [Lipitor] 20 mg PO HS 01/27/18 08/11/18 08/10/18 History Insulin Glargine,Hum.rec.anlog 40 units SUB-Q BID 01/27/18 08/11/18 08/10/18 History [Basaglar Kwikpen U-100] Insulin Lispro [HumaLOG VIAL] 20 units SUB-Q TIDWM 01/27/18 08/11/18 08/10/18 History Lisinopril [Zestril] 20 mg PO QDAY 01/27/18 08/11/18 08/10/18 History Carvedilol [Coreg] 25 mg PO BIDWM #60 tablet 02/21/18 08/11/18 08/10/18 Rx Aspirin [Aspirin BABY CHEW TAB] 81 mg PO QDAY tab.chew 02/22/18 08/11/18 08/10/18 Rx Furosemide [Lasix TAB] 40 mg PO QDAY 08/11/18 08/11/18 08/10/18 History Active Meds: Active Medications Acetaminophen (Tylenol) 650 mg PO Q4H PRN PRN Reason: Pain MILD(1-3)/Fever >100.5/HOOK Aspirin (Baby Aspirin) 81 mg PO QDAY [facility] Atorvastatin Calcium (Lipitor) 80 mg PO QHS [facility] Carvedilol (Coreg) 25 mg PO BID@0800,1700 [facility] Last Admin: 08/11/18 10:10 Dose: 25 mg Documented by: Ezetimibe (Zetia) 10 mg PO QDAY [facility] Furosemide (Lasix) 40 mg PO QDAY [facility] Last Admin: 08/11/18 10:10 Dose: 40 mg Documented by: Insulin Human Lispro (Humalog) 20 unit SUB-Q TIDWM [facility] Last Admin: 08/11/18 10:10 Dose: 20 unit Documented by: Lisinopril (Zestril) 20 mg PO QDAY [facility] Last Admin: 08/11/18 10:10 Dose: 20 mg Documented by: Miscellaneous Medication (Insulin Glargine,Hum.Rec.Anlog [Basaglar Kwikpen U- 100]) 40 units SUB-Q BID [facility] Morphine Sulfate (Morphine) 2 mg IV Q3H PRN PRN Reason: Pain, Moderate (4-6) Last Admin: 08/11/18 08:32 Dose: 2 mg Documented by: Nitroglycerin (Nitrostat) 0.4 mg SL Q5M PRN PRN Reason: Chest Pain Ondansetron HCl (Zofran) 4 mg IV Q8H PRN PRN Reason: Nausea And Vomiting Sodium Chloride (Sodium Chloride Flush Syringe 10 Ml) 10 ml IV BID [facility] Last Admin: 08/11/18 10:10 Dose: 10 ml Documented by: Sodium Chloride (Sodium Chloride Flush Syringe 10 Ml) 10 ml IV PRN PRN PRN Reason: LINE FLUSH Review of Systems Constitutional: no weight loss, no weight gain, no fever, no chills, no sweats Ears, nose, mouth and throat: no ear pain, no nose pain, no sinus pressure, no sinus pain Cardiovascular: chest pain, palpitations, rapid/irregular heart beat, shortness of breath, dyspnea on exertion, high blood pressure, no edema, no syncope, no lightheadedness, no leg edema Respiratory: no cough, no congestion, no wheezing, no pain on inspiration Gastrointestinal: nausea, no abdominal pain, no vomiting, no diarrhea, no constipation, no change in bowel habits Genitourinary Female: no pelvic pain, no flank pain, no dysuria, no urinary frequency, no urgency Musculoskeletal: no neck stiffness, no neck pain, no shooting arm pain, no arm n umbness/tingling, no low back pain, no shooting leg pain Integumentary: no rash, no pruritis, no redness, no sores, no wounds Neurological: no head injury, no paralysis, no weakness, no parathesias, no numbness, no tingling, no seizures, no syncope Psychiatric: anxiety Endocrine: no cold intolerance, no heat intolerance Hematologic/Lymphatic: no easy bruising, no easy bleeding Allergic/Immunologic: no urticaria Physical Examination Vital Signs Temp Pulse Resp BP Pulse Ox 98.1 F 82 18 163/97 99 08/10/18 19:44 08/10/18 19:44 08/10/18 19:44 08/10/18 19:44 08/10/18 19:44 General appearance: no acute distress HEENT: Positive: PERRL, Normocephaly, Mucus Membranes Moist Neck: Positive: neck supple, trachea midline Cardiac: Positive: Reg Rate and Rhythm, S1/S2 Lungs: Positive: Decreased Breath Sounds Neuro: Positive: Grossly Intact Abdomen: Positive: Soft. Negative: Tender Skin: Negative: Rash, Wound Musculoskeletal: No Pain Extremities: Absent: edema Results 08/11/18 05:50 08/11/18 02:29 Cardiac Enzymes 08/10/18 Range/Units 20:00 AST 24 (5-40) units/L Coagulation 08/10/18 Range/Units 20:00 PT 13.2 (12.2-14.9) Sec. INR 0.95 (0.87-1.13) APTT 23.5 L (24.2-36.6) Sec. Lipids 08/11/18 Range/Units 05:50 Triglycerides 118 (2-149) mg/dL Cholesterol 201 H (50-199) mg/dL HDL Cholesterol 42 (40-59) mg/dL Cholesterol/HDL Ratio 4.78 % CBC 08/10/18 08/11/18 08/11/18 Range/Units 20:00 02:29 05:50 WBC 11.3 H 10.0 9.2 (4.5-11.0) K/mm3 RBC 4.31 4.14 4.04 (3.65-5.03) M/mm3 Hgb 13.4 12.8 12.5 (10.1-14.3) gm/dl Hct 39.8 38.0 37.2 (30.3-42.9) % Plt Count 224 221 213 (140-440) K/mm3 Lymph # 3.3 3.0 2.8 (1.2-5.4) K/mm3 [place] # 0.9 H 0.7 0.7 (0.0-0.8) K/mm3 Eos # 0.2 0.2 0.1 (0.0-0.4) K/mm3 Baso # 0.1 0.1 0.1 (0.0-0.1) K/mm3 Comprehensive Metabolic Panel 08/10/18 08/11/18 Range/Units 20:00 02:29 Sodium 135 L 133 L (137-145) mmol/L Potassium 4.1 4.3 (3.6-5.0) mmol/L Chloride 99.0 98.2 (98-107) mmol/L Carbon Dioxide 23 22 (22-30) mmol/L BUN 17 14 (7-17) mg/dL Creatinine 0.7 0.6 L (0.7-1.2) mg/dL Glucose 243 H 236 H (65-100) mg/dL Calcium 9.0 8.7 (8.4-10.2) mg/dL AST 24 (5-40) units/L ALT 27 (7-56) units/L Alkaline Phosphatase 63 (35-129) units/L Total Protein 7.2 (6.3-8.2) g/dL Albumin 3.7 L (3.9-5) g/dL - Imaging and Cardiology Echo: pending EKG: report reviewed, image reviewed EKG interpretations - Telemetry EKG Rhythm: Sinus Rhythm - EKG Sinus rhythms and dysrhythmias: sinus rhythm AV and intraventricular conduction: left bundle branch block Assessment and Plan Pt presented with c/o chest pain and palpitations. She has reported AMI with PCI of LAD in 2016 at [facility], HF, ? paroxysmal AFib, HTN, DM, HLP, GERD, anxiety. She states she was admitted to [facility] last week (discharged on Friday) for similar episode and underwent stress test and echo and was told stress test was negative and echo showed EF 45%. Pt reports that she was diagnosed with "flash pulmonary edema", HTN, HF and atrial fibrillation during that hospitalization. ECG with NSR LBBB, Gladis negative for AMI, AMI currently ruled out. Pt has been in SR since initiation of telemetry. Will attempt to obtain medical records from [facility]. If able to verify that pt indeed underwent stress test last week which was negative, will plan for coronary angiography in AM for definitive diagnosis. Lipid panel reviewed - initiate lipitor. Cont all other present medical cardiac management. The patient has been seen in conjunction with Dr. Mcginnis who agrees with the assessment and plan of care. - Patient Problems (1) Chest pain Current Visit: Yes Status: Acute (2) Hyperlipidemia Current Visit: Yes Status: Acute (3) CAD (coronary artery disease) Current Visit: Yes Status: Acute (4) Stented coronary artery Current Visit: Yes Status: Chronic (5) Paroxysmal atrial fibrillation Current Visit: Yes Status: Suspected (6) Hypertension Current Visit: Yes Status: Chronic Qualifiers: Hypertension type: essential hypertension Qualified Code(s): I10 - Essential (primary) hypertension (7) Diabetes Current Visit: Yes Status: Chronic (8) GERD (gastroesophageal reflux disease) Current Visit: Yes Status: Chronic Qualifiers: Esophagitis presence: with esophagitis Qualified Code(s): K21.0 - Gastro- esophageal reflux disease with esophagitis (9) LBBB (left bundle branch block) Current Visit: Yes Status: Acute (10) Obesity Current Visit: Yes Status: Chronic
[2018-08-11] MEDS: LANTUS SUB-Q SCH ×2 (13:07→22:53)
[2018-08-11] MEDS: ZETIA PO SCH (13:07)
--- NOTE | 2018-08-11 13:11 | Event Note ---
Date: 08/11/18 Medical records from [facility] obtained. Pt underwent TTE 08/02/2018 which showed EF 45-50%, mod LVH, grade 2 diastolic dysfunction, septal wall hypokinetic, inferior wall mildly hypokinetic. Pharmacologic MPI stress test done 08/03/2018 was negative for ischemia or infarction, normal LV. Coronary angiography recommended for definitive diagnosis. Indications, potential risks and and benefits of LHC reviewed with pt and she is agreeable to proceed in AM. NPO after MN. Khoa HERNANDEZ NP / DR. CHAHAL
[2018-08-11] MEDS ORDERED: ALUM-MAG HYDROX-SIMETH 200-200-20MG/5ML PO PRN (14:49)
[2018-08-11] MEDS ORDERED: NACL 0.9% 500 ML 500 ML IV SCH (15:00)
[2018-08-11] MEDS: HumuLIN R SUB-Q SCH ×2 (17:55→22:52)
[2018-08-12] MEDS: MORPHINE IV PRN ×3 (03:50→14:16)
[2018-08-12 05:46] LABS: Basophils # (Auto) 0.1 K/mm3 (0.0-0.1); Basophils % (Auto) 0.6 % (0.0-1.8); Eosinophils # (Auto) 0.2 K/mm3 (0.0-0.4); Eosinophils % (Auto) 1.9 % (0.0-4.3); Hematocrit 39.4 % (30.3-42.9); Hemoglobin 13.3 gm/dl (10.1-14.3); Lymphocytes # (Auto) 2.7 K/mm3 (1.2-5.4); Lymphocytes % (Auto) 28.7 % (13.4-35.0); Mean Corpuscular HGB Conc 34 % (30-34); Mean Corpuscular Volume 92 fl (79-97); Monocytes # (Auto) 0.7 K/mm3 (0.0-0.8); Monocytes % (Auto) 7.7 % (0.0-7.3); Platelet Count 217 K/mm3 (140-440); Red Blood Count 4.28 M/mm3 (3.65-5.03); Red Cell Distribution Width 13.9 % (13.2-15.2)
[2018-08-12 05:55] LABS: INR 0.94 (0.87-1.13)
[2018-08-12 06:09] LABS: BUN/Creatinine Ratio 21; Blood Urea Nitrogen 15 mg/dL (7-17); Calcium 8.8 mg/dL (8.4-10.2); Hemolysis Index 15
[2018-08-12] MEDS ORDERED: HEPARIN/NS 5000 UNIT/500ML(CATH LAB) 1,000 ML IR ONE (07:39)
[2018-08-12] MEDS ORDERED: NITROGLYCERIN SYRINGE 0 ML ONE (07:40)
[2018-08-12] MEDS: XYLOCAINE 2% INFILTRATI ONE ×4 (07:40→08:34)
[2018-08-12] MEDS ORDERED: NACL 0.9% 500 ML 500 ML ONE (07:42)
[2018-08-12] MEDS ORDERED: ASPIRIN ONE (07:44)
[2018-08-12] MEDS: ASPIRIN PO SCH ×2 (07:45→09:51)
[2018-08-12] MEDS: VERSED ONE ×3 (08:17→08:34)
[2018-08-12] MEDS: SUBLIMAZE ONE ×3 (08:17→08:34)
[2018-08-12] MEDS: HEPARIN 10,000 UNITS/10 ML ONE ×2 (08:18→08:35)
[2018-08-12] MEDS: CALAN ONE ×2 (08:18→08:35)
[2018-08-12] MEDS: HumuLIN R SUB-Q SCH ×3 (09:14→17:54)
[2018-08-12] MEDS: HumaLOG SUB-Q SCH ×3 (09:39→17:54)
[2018-08-12] MEDS: SODIUM CHLORIDE FLUSH SYRINGE 10 ML IV SCH (09:52)
[2018-08-12] MEDS: ZETIA PO SCH (09:52)
[2018-08-12] MEDS: LASIX PO SCH (09:52)
[2018-08-12] MEDS ORDERED: ECOTRIN PO SCH (10:00)
[2018-08-12] MEDS ORDERED: BABY ASPIRIN PO SCH (10:00)
[2018-08-12] MEDS: ZESTRIL PO SCH (10:01)
[2018-08-12] MEDS: COREG PO SCH (10:01)
[2018-08-12] MEDS: LANTUS SUB-Q SCH (11:32)
--- NOTE | 2018-08-12 14:05 | Progress Note ---
Assessment and Plan S/p [facility] this AM which showed patent LAD stent, patent coronaries. Currently stable cardiac status. Tele reviewed - no evidence of AFib since admission and no mention of AFib in medical records from [facility]. Pt may discharge home from cardiology standpoint following completion of post cath order set. Recommend follow up in our office with Dr. Mcginnis within 1-2 weeks of hospital discharge ([phone]). The patient has been seen in conjunction with Dr. Mcginnis who agrees with the assessment and plan of care. - Patient Problems (1) Chest pain Current Visit: Yes Status: Resolved (2) Hyperlipidemia Current Visit: Yes Status: Acute (3) CAD (coronary artery disease) Current Visit: Yes Status: Acute (4) Stented coronary artery Current Visit: Yes Status: Chronic (5) Hypertension Current Visit: Yes Status: Chronic Qualifiers: Hypertension type: essential hypertension Qualified Code(s): I10 - Essential (primary) hypertension (6) Diabetes Current Visit: Yes Status: Chronic (7) GERD (gastroesophageal reflux disease) Current Visit: Yes Status: Chronic Qualifiers: Esophagitis presence: with esophagitis Qualified Code(s): K21.0 - Gastro- esophageal reflux disease with esophagitis (8) LBBB (left bundle branch block) Current Visit: Yes Status: Acute (9) Obesity Current Visit: Yes Status: Chronic Subjective Date of service: 08/12/18 Principal diagnosis: cp Interval history: pt seen s/p C. no current cardiac complaints. Objective Last Vital Signs Temp 97.3 F L 08/12/18 11:52 Pulse 67 08/12/18 11:52 Resp 16 08/12/18 11:52 BP 118/72 08/12/18 11:52 Pulse Ox 97 08/12/18 11:52 - Physical Examination General: No Apparent Distress HEENT: Positive: PERRL, Normocephaly, Mucus Membranes Moist Neck: Positive: neck supple, trachea midline Cardiac: Positive: Reg Rate and Rhythm, S1/S2 Lungs: Positive: clear to auscultation Neuro: Positive: Grossly Intact Abdomen: Positive: Soft. Negative: Tender Skin: Negative: Rash, Wound Musculoskeletal: No Pain Extremities: Absent: edema - Labs and Meds Coagulation 08/12/18 Range/Units 05:02 PT 13.1 (12.2-14.9) Sec. INR 0.94 (0.87-1.13) CBC 08/12/18 Range/Units 05:02 WBC 9.5 (4.5-11.0) K/mm3 RBC 4.28 (3.65-5.03) M/mm3 Hgb 13.3 (10.1-14.3) gm/dl Hct 39.4 (30.3-42.9) % Plt Count 217 (140-440) K/mm3 Lymph # 2.7 (1.2-5.4) K/mm3 [place] # 0.7 (0.0-0.8) K/mm3 Eos # 0.2 (0.0-0.4) K/mm3 Baso # 0.1 (0.0-0.1) K/mm3 Comprehensive Metabolic Panel 08/12/18 Range/Units 05:02 Sodium 134 L (137-145) mmol/L Potassium 4.3 (3.6-5.0) mmol/L Chloride 96.5 L (98-107) mmol/L Carbon Dioxide 24 (22-30) mmol/L BUN 15 (7-17) mg/dL Creatinine 0.7 (0.7-1.2) mg/dL Glucose 184 H (65-100) mg/dL Calcium 8.8 (8.4-10.2) mg/dL - Imaging and Cardiology EKG: report reviewed, image reviewed Echo: report reviewed - Telemetry EKG Rhythm: Sinus Rhythm - EKG Sinus rhythms and dysrhythmias: sinus rhythm AV and intraventricular conduction: left bundle branch block
--- NOTE | 2018-08-12 14:43 | Discharge Summary ---
Providers - Providers Date of Admission: 08/11/18 01:49 Date of discharge: 08/12/18 Attending physician: DANNI CRAWFORD 08/11/18 Consult to Cardiac Rehabilitation [CONS] Routine Reason For Exam: Phase I Consult to Cardiac Rehabilitation [CONS] Routine Reason For Exam: Phase I 08/11/18 08:06 Consult to Physician [CONS] Routine Comment: Consulting Provider: BERNICE DE Physician Instructions: Reason For Exam: chest pain 08/11/18 14:09 Consult to Dietitian/Nutrition [CONS] Routine Physician Instructions: diabetic and cardiac diet education Reason For Exam: Reason for Consult: Diet education Hospitalization Condition: Fair Pertinent studies: CXR Cardiac cath Hospital course: The patient is a 38-year-old female with a past medical history of reported AMI with PCI of LAD in 2016 at [facility], HF, ? paroxysmal AFib, HTN, DM, HLP, GERD, anxiety, previously followed by [facility] lead project manager several years ago p resented with a chief complaint of chest pain. The patient stated that she was admitted to [facility] last week (discharged on Friday) for similar episode and underwent stress test and echo and was told stress test was negative and echo showed EF 45%. Records requested from [facility] and then cardiology recommended cardiac catheterization. S/p C this AM which showed patent LAD stent, patent coronaries. Currently stable cardiac status. Tele reviewed - no evidence of AFib since admission and no mention of AFib in medical records from [facility]. Patient was discharged home, Recommend follow up in the office with Dr. Mcginnis within 1-2 weeks of hospital discharge ([phone]). Discharge diagnosis: (1) Chest pain, likely GERD Current Visit: Yes Status: Resolved LHC showed no new blockage (2) Hyperlipidemia Current Visit: Yes Status: Acute Will continue statin (3) CAD (coronary artery disease) Current Visit: Yes Status: Acute (4) Stented coronary artery Current Visit: Yes Status: Chronic (5) Hypertension Current Visit: Yes Status: Chronic Qualifiers: Hypertension type: essential hypertension Qualified Code(s): I10 - Essential (primary) hypertension (6) Diabetes Current Visit: Yes Status: Chronic (7) GERD (gastroesophageal reflux disease) Current Visit: Yes Status: Chronic Qualifiers: Esophagitis presence: with esophagitis Qualified Code(s): K21.0 - Gastro-esophageal reflux disease with esophagitis (8) LBBB (left bundle branch block) Current Visit: Yes Status: Acute (9) Obesity Current Visit: Yes Status: Chronic Disposition: DC-01 TO HOME OR SELFCARE Time spent for discharge: 34 minutes Core Measure Documentation - Palliative Care Palliative Care/ Comfort Measures: Not Applicable - Core Measures Any of the following diagnoses?: none Exam - Constitutional Vitals: Temp Pulse Resp BP Pulse Ox 97.3 F L 67 16 118/72 97 08/12/18 11:52 08/12/18 11:52 08/12/18 11:52 08/12/18 11:52 08/12/18 11:52 General appearance: Present: no acute distress, obese - EENT Eyes: Present: PERRL ENT: hearing intact, clear oral mucosa - Neck Neck: Present: supple, normal ROM - Respiratory Respiratory effort: normal Respiratory: bilateral: CTA - Cardiovascular Heart Sounds: Present: S1 & S2. Absent: rub, click - Extremities Extremities: pulses symmetrical, No edema Peripheral Pulses: within normal limits - Abdominal General gastrointestinal: Present: soft, non-tender, non-distended, normal bowel sounds - Integumentary Integumentary: Present: clear, warm, dry - Musculoskeletal Musculoskeletal: gait normal, strength equal bilaterally - Psychiatric Psychiatric: appropriate mood/affect, intact judgment & insight - Neurologic Neurologic: CNII-XII intact, moves all extremities Plan Activity: advance as tolerated Weight Bearing Status: Non-Weight Bearing Diet: low fat, low salt Follow up with: MARGARITA LIRIANO [Other] - 3-5 Days Prescriptions: AtorvaSTATin [Lipitor] 80 mg PO QHS #30 tablet Ezetimibe [Zetia] 10 mg PO QDAY #30 tablet
[2018-08-12 17:52] VITALS: BP 107/70
--- NOTE | 2018-09-04 12:53 | Cardiac Catherization Report ---
CARDIAC CATHETERIZATION REPORT The patient is a 38-year-old female with known history of coronary disease with stent placement in the past. He was admitted with chest pain and abnormal stress nuclear imaging was noted. Hence, cardiac catheterization is being performed for diagnostic and prognostic purposes. The patient is aware of the procedure, potential complications and alternatives of therapy available. DESCRIPTION OF PROCEDURE: The patient was brought to the catheterization laboratory in a fasting condition. Right wrist area and forearm thoroughly cleansed with Betadine solution. Sterile drapes were applied. The patient was evaluated for moderate sedation and was felt to be appropriate candidate for moderate sedation. The patient was given IV Versed and fentanyl. Subsequently, local anesthesia was given in the right wrist area and right radial artery access was obtained using a 21-gauge arterial puncture needle. A 5-Persian sheath was introduced and the patient received 3000 units of intravenous heparin and 5 mg of intra-arterial verapamil. Subsequently, using multipurpose catheter left coronary angiograms were obtained in multiple views followed by angiograms of the right coronary artery and also left ventriculogram was performed using hand injection. At the end of the procedure, catheter and sheath were removed. Good hemostasis was achieved with radial band application. It is to be noted the patient was given sedation starting at 08:29 a.m. and was monitored continuously with pulse oximetry, EKG monitoring and hemodynamic monitoring up to 08:45 a.m. No untoward complications were noted. At the end of the procedure, the patient was communicating normally with no focal deficits and breathing normally. The patient was transferred to the room in stable condition. Following findings were noted. HEMODYNAMICS: 1. Opening aortic pressure 121/65, left ventricular pressure 121/18. No gradient across the aortic valve. Estimated ejection fraction 50%. 2. Left angiogram done in TABOR projection showed normal sized left ventricle with ejection fraction lower limits of normal. As mentioned above ejection fraction was estimated to be 50% and mitral regurgitation could not be evaluated because of limited amount of dye injected. 3. Coronary angiography. Left coronary artery arises normally from left coronary cusp. Left main is smooth and normal. LAD is very small caliber vessel with a widely patent mid LAD stent noted. Diagonal branch fairly large vessel is angiographically smooth and normal. Circumflex artery is angiographically smooth and normal. Right coronary artery dominant vessel is angiographically smooth and normal. FINAL IMPRESSION: Patent stent in the mid LAD with ejection fraction lower limits of normal with no significant coronary disease documented on this angiography. The patient tolerated the procedure well. No side effects were noted from moderate sedation. The patient was transferred to the room in stable condition and the patient will be continued with risk factor modification and medical therapy. JOB# [id number] MANJEET/BHUPINDER
== END 2018-08-12 18:57 | disposition home or self-care (01) | DRG 392 ==
LOC: ED 19:37 → 4A 08-11 01:49
PROVIDERS: ADMIT Internal Medicine; ATTEND Internal Medicine
PROC: 4A023N7 Measurement of Cardiac Sampling and Pressure, Left Heart, Percutaneous Approach (ICD-10-PCS; principal; 2018-08-12)
PROC: B2111ZZ Fluoroscopy of Multiple Coronary Arteries using Low Osmolar Contrast (ICD-10-PCS; 2018-08-12)
PROC: B2151ZZ Fluoroscopy of Left Heart using Low Osmolar Contrast (ICD-10-PCS; 2018-08-12)
DX: K21.0 Gastro-esophageal reflux disease with esophagitis (principal); I48.91 Unspecified atrial fibrillation; Z68.42 Body mass index [BMI] 45.0-49.9, adult; E66.01 Morbid (severe) obesity due to excess calories; I25.10 Atherosclerotic heart disease of native coronary artery without angina pectoris; E10.9 Type 1 diabetes mellitus without complications; F41.9 Anxiety disorder, unspecified; Z86.711 Personal history of pulmonary embolism; I25.2 Old myocardial infarction; Z95.5 Presence of coronary angioplasty implant and graft; Z88.1 Allergy status to other antibiotic agents; Z88.8 Allergy status to other drugs, medicaments and biological substances; Z79.4 Long term (current) use of insulin; Z79.82 Long term (current) use of aspirin; Z79.899 Other long term (current) drug therapy; Z87.891 Personal history of nicotine dependence; Z87.442 Personal history of urinary calculi
CPT/HCPCS: 36415; 71046; 80048; 80053; 80061; 80307; 81001; 82962; 83036; 84484; 84703; 85025; 85610; 85730; 93005; 93010; 93458; 96374; 96375; G0378; A9270-GY; C1894; J1644; J1815; J2250; J2270; J2405; J3010; J7040; Q9967

== ENCOUNTER 2018-09-07 02:45 | Emergency (ER) | payer OTHER ==
[2018-09-07] MEDS ORDERED: ASPIRIN PO ONE (02:58)
[2018-09-07] MEDS ORDERED: MORPHINE IV ONE (03:59)
[2018-09-07] MEDS ORDERED: ZOFRAN IV ONE (03:59)
[2018-09-07] MEDS ORDERED: ZOFRAN ONE (04:03)
[2018-09-07] MEDS ORDERED: MORPHINE ONE (04:03)
--- NOTE | 2018-09-07 04:07 | Emergency Department Report ---
HPI - General Chief Complaint: Chest Pain Time Seen by Provider: 09/07/18 03:34 - HPI HPI: 38-year-old female presents to the emergency department with complaint of some three-day history of shortness of breath, mixed dry and productive cough, chest soreness and a burning sensation to the lungs. Patient says that the symptoms worsen when she is laying flat. It is also associated with some nausea and vomiting. He got to the point where the patient was concerned about the chest symptoms and took 2 sublingual nitroglycerin without any relief. The patient went to an urgent care last week for some of these same symptoms and was placed on doxycycline and a medication for cough. She has a past medical history of CHF, insulin-dependent diabetes, coronary artery disease with stent, paroxysmal atrial fibrillation, hypertension. The patient was here last month for chest pain and had a cardiac catheterization that did not show any new is chemic disease and showed a patent mid LAD stent. 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 No recent travel or sick contacts at home. ED Past Medical Hx - Past Medical History Previous Medical History?: Yes Hx Hypertension: Yes Hx Heart Attack/AMI: Yes (A-fib) Hx Congestive Heart Failure: Yes Hx Diabetes: Yes Hx Kidney Stones: Yes Additional medical history: Flash pulmonary edema, MORBID OBESITY - Surgical History Hx Coronary Stent: Yes (LAD) Additional Surgical History: C/S, renal stents, Heart stent in the LAD 2 yrs ago - Social History Smoking Status: Never Smoker Substance Use Type: None - Medications Home Medications: Home Medications Medication Instructions Recorded Confirmed Last Taken Type Insulin Glargine,Hum.rec.anlog 40 units SUB-Q BID 01/27/18 08/11/18 08/10/18 History [Basaglar Kwikpen U-100] Insulin Lispro [HumaLOG VIAL] 20 units SUB-Q TIDWM 01/27/18 08/11/18 08/10/18 History Lisinopril [Zestril] 20 mg PO QDAY 01/27/18 08/11/18 08/10/18 History Carvedilol [Coreg] 25 mg PO BIDWM #60 tablet 02/21/18 08/11/18 08/10/18 Rx Aspirin [Aspirin BABY CHEW TAB] 81 mg PO QDAY tab.chew 02/22/18 08/11/18 08/10/18 Rx Furosemide [Lasix TAB] 40 mg PO QDAY 08/11/18 08/11/18 08/10/18 History AtorvaSTATin [Lipitor] 80 mg PO QHS #30 tablet 08/12/18 Unknown Rx Ezetimibe [Zetia] 10 mg PO QDAY #30 tablet 08/12/18 Unknown Rx ALBUTEROL Inhaler (OR & NICU) 2 puff IH QID PRN #1 inhalation 09/07/18 Unknown Rx [ProAir HFA Inhaler] Albuterol Sulfate [Albuterol 0.63% 0.63 mg IH TID PRN #1 box 09/07/18 Unknown Rx NEBS] guaiFENesin/CODEINE [Robitussin AC] 5 ml PO Q6H PRN #100 oral.liqd 09/07/18 Unknown Rx ED Review of Systems ROS: Stated complaint: CHEST PAIN/ISAURA/COUGH Other details as noted in HPI Comment: All other systems reviewed and negative Constitutional: denies: chills, fever Eyes: denies: eye pain, vision change ENT: denies: ear pain, throat pain Respiratory: cough, orthopnea, shortness of breath Cardiovascular: chest pain. denies: palpitations Gastrointestinal: nausea, vomiting. denies: abdominal pain Genitourinary: denies: dysuria, discharge Musculoskeletal: denies: back pain, arthralgia Skin: denies: rash, lesions Neurological: denies: headache, weakness Physical Exam - Physical Exam Vital Signs: Vital Signs 09/07/18 09/07/18 09/07/18 02:48 02:50 03:46 Temperature 97.9 F 97.9 F Pulse Rate 90 82 82 Respiratory 18 20 25 H Rate Blood Pressure 184/105 184/105 162/86 O2 Sat by Pulse 95 97 98 Oximetry Physical Exam: GENERAL: The patient is well-developed well-nourished. HEENT: Normocephalic. Atraumatic. Patient has moist mucous membranes. EYES: Extraocular motions are intact. Pupils are equal and reactive to light bilaterally. NECK: Supple. Trachea is midline. CHEST/LUNGS: Mild wheezing throughout the chest. Tachypnea but no excessive muscle use. No cough heard during examination thus far. There is no respiratory distress noted. HEART/CARDIOVASCULAR: Regular. There is no tachycardia. There is no obvious murmur. ABDOMEN: Abdomen is soft, nontender. Patient has normal bowel sounds. Obese habitus. SKIN: Skin is warm and dry. NEURO: The patient is awake, alert, and oriented. The patient is cooperative. The patient has no focal neurologic deficits. The patient has normal speech. MUSCULOSKELETAL: There is no tenderness or deformity. There is no evidence of acute injury. ED Course Vital Signs 09/07/18 09/07/18 09/07/18 02:48 02:50 03:46 Temperature 97.9 F 97.9 F Pulse Rate 90 82 82 Respiratory 18 20 25 H Rate Blood Pressure 184/105 184/105 162/86 O2 Sat by Pulse 95 97 98 Oximetry ED Medical Decision Making - Lab Data Result diagrams: 09/07/18 03:25 09/07/18 03:25 - EKG Data -: EKG Interpreted by Me EKG shows normal: sinus rhythm, axis, intervals, QRS complexes (left bundle branch block), ST-T waves Rate: normal - EKG Data When compared to previous EKG there are: no significant change Interpretation: unchanged when compared t (08/11/18) - Radiology Data Radiology results: report reviewed, image reviewed interpreted by me: Chest x-ray does not show any pneumothorax, pleural effusion, pneumonia or obvious focal consolidation. CT angiography of the chest does not show any pulmonary embolism. There is likely focal and infectious nodularity and septal thickening in the posterior left lower lung, which appears new compared to prior chest CT. - Medical Decision Making This patient presents to the emergency department with a complaint of some wheezing, coughing, burning lungs sensation and chest soreness secondary to coughing. There is low suspicion for coronary artery disease as the patient had a heart catheterization done 1 month ago that did not show any areas of occlusion, ischemia, and her current stent is patent. Chest x-ray does not show any pleural effusions, pneumothorax, pneumonia, focal consolidation, or any other acute process. Labs were mostly unremarkable including negative troponins 2 but the patient did have a slightly elevated an equivocal d-dimer. CT angiography of the chest was done that did not show any pulmonary embolism, dissection or aneurysm. The patient was given some pain medication, steroids and breathing treatments and cough medication. She was reevaluated multiple times over multiple hours and is both feeling and appears improved. Vital signs stable throughout her ED course. She'll be discharged home with referrals for primary care and cardiology. She has been instructed to return to the emergency Department with any worsening of her symptoms or any acute distress. - Differential Diagnosis pneumonia, pleurisy, bronchitis, PE Critical Care Time: No Critical care attestation.: If time is entered above; I have spent that time in minutes in the direct care of this critically ill patient, excluding procedure time. ED Disposition Clinical Impression: Bronchitis, Bronchospasm Hypertension Qualifiers: Hypertension type: essential hypertension Qualified Code(s): I10 - Essential (primary) hypertension Disposition: DC- TO HOME OR SELFCARE Is pt being admited?: No Condition: Stable Instructions: Acute Bronchitis (ED), Hypertension (ED), Bronchospasm (ED) Additional Instructions: I am giving you multiple local primary care physicians for follow-up. I am also giving you a referral for the cardiology group for cardiac catheterization. Take the medications as prescribed. Return to the emergency Department with any worsening of your symptoms or any acute distress. Take her blood pressure medications. Try and stay away from foods that are high in salt any caffeinated products to help with her blood pressure. Daily blood pressure log. Take your diabetes medication/insulin. Try and stay away from foods that are high in sugar, carbohydrates, and starches. Daily blood sugar log. You have been prescribed a medication that can be sedating. Therefore, this medication cannot be taken prior to driving, working, being responsible for children, and cannot be mixed with alcohol of any quantity. Prescriptions: Albuterol Sulfate [Albuterol 0.63% NEBS] 0.63 mg IH TID PRN #1 box PRN Reason: Wheezing ALBUTEROL Inhaler (OR & NICU) [ProAir HFA Inhaler] 2 puff IH QID PRN #1 inhalation PRN Reason: Shortness Of Breath guaiFENesin/CODEINE [Robitussin AC] 5 ml PO Q6H PRN #100 oral.liqd PRN Reason: Cough Referrals: DONATO PABLO MD [Staff Physician] - 2-3 Days HUMBLE HARRINGTON MD [Staff Physician] - 2-3 Days SHAWNA ELLIS MD [Staff Physician] - 2-3 Days [facility] [Outside] - 2-3 Days Forms: Work/School Release Form(ED) Time of Disposition: 06:37
[2018-09-07 04:08] LABS: Basophils % (Auto) 0.3 % (0.0-1.8); Eosinophils % (Auto) 0.7 % (0.0-4.3); Hematocrit 37.7 % (30.3-42.9); Lymphocytes % (Auto) 29.6 % (13.4-35.0); Mean Corpuscular HGB Conc 34 % (30-34); Mean Corpuscular Volume 91 fl (79-97); Monocytes % (Auto) 10.4 % (0.0-7.3); Platelet Count 193 K/mm3 (140-440); Red Blood Count 4.13 M/mm3 (3.65-5.03); Red Cell Distribution Width 14.3 % (13.2-15.2)
[2018-09-07 04:09] LABS: Eosinophils # (Auto) 0.1 K/mm3 (0.0-0.4); Lymphocytes # (Auto) 2.8 K/mm3 (1.2-5.4)
[2018-09-07] MEDS ORDERED: ROBITUSSIN AC PO ONE (04:17)
[2018-09-07 04:30] LABS: BUN/Creatinine Ratio 16; Blood Urea Nitrogen 13 mg/dL (7-17); Calcium 9.4 mg/dL (8.4-10.2); Hemolysis Index 14
[2018-09-07] MEDS ORDERED: SOLU-Medrol IV ONE (04:33)
[2018-09-07] MEDS ORDERED: DUONEB *Not for PRN Use IH ONE (04:33)
--- NOTE | 2018-09-07 04:51 | XRay Report ---
PROCEDURE: XR CHEST 1V AP TECHNIQUE: A portable view the chest was obtained. HISTORY: Chest Pain COMPARISONS: 08/10/2018 FINDINGS: The heart size and vascularity appear normal. The lungs are negative for infiltrates or effusions. Th e bones and soft tissues do not show any acute changes. IMPRESSION: No acute cardiopulmonary abnormalities. This document is electronically signed by Topher Slater MD., September 07 2018 04:49:15 AM ET
[2018-09-07] MEDS ORDERED: DILAUDID IV ONE (05:28)
[2018-09-07] MEDS ORDERED: DECADRON IV ONE (06:37)
--- NOTE | 2018-09-07 06:39 | Cat Scan Report ---
PROCEDURE: CT ANGIO CHEST TECHNIQUE: CT imaging is obtained through the chest in pulmonary angiographic phases following intra venous administration of contrast. Transaxial, coronal and sagittal reformations with maximum intensi ty projection are provided HISTORY: SOB, elevated dimer COMPARISONS: Chest radiograph of the same date, 01/27/2018 FINDINGS: Normal caliber main pulmonary artery. Well opacified pulmonary arterial tree. No pulmonary embolism . No pericardial effusion. Thoracic aorta is normal in course and caliber. No periaortic fluid or stranding. No pneumothorax or effusion. Focal area of interlobular septal thickening and tree-in-bud/centrilobul ar nodularity in the posterior left lower lung on axial series 2, image 79 is new compared to prior e xam. The central airways are patent. No bronchiectasis. Imaged portion of the upper abdomen is unremarkable. The superficial soft tissues are unremarkable. No acute bony abnormality or worrisome osseous lesions identified. IMPRESSION: No pulmonary embolism. There is focal and likely infectious nodularity and septal thickening in the p osterior left lower lung, which appears new compared to prior chest CT. This document is electronically signed by Uday Jackson MD., September 07 2018 06:37:06 AM ET
[2018-09-08 18:12] VITALS: BP 141/82
== END 2018-09-07 09:08 | disposition home or self-care (01) ==
LOC: ED 02:45
DX: J98.01 Acute bronchospasm (principal); J40 Bronchitis, not specified as acute or chronic; I11.0 Hypertensive heart disease with heart failure; I50.9 Heart failure, unspecified; I25.2 Old myocardial infarction; E11.9 Type 2 diabetes mellitus without complications; E66.01 Morbid (severe) obesity due to excess calories; I48.91 Unspecified atrial fibrillation; I25.10 Atherosclerotic heart disease of native coronary artery without angina pectoris; Z95.1 Presence of aortocoronary bypass graft; Z79.4 Long term (current) use of insulin; Z88.6 Allergy status to analgesic agent; Z88.1 Allergy status to other antibiotic agents; Z88.8 Allergy status to other drugs, medicaments and biological substances
CPT/HCPCS: 36415; 71045; 71275; 80048; 83880; 84484; 84703; 85025; 85379; 93005; 93010; 94640; 96374; 96375; 99285; J1100; J1170; J2270; J2405; J2930; Q9967

== ENCOUNTER 2018-11-20 12:26 | Inpatient (IN) | payer OTHER ==
--- NOTE | 2018-11-20 12:34 | Event Note ---
ED Screening Note Date of service: 11/20/18 Time: 12:30 ED Screening Note: This is a 38 y.o. F. that presents to the ER with SOB and chest pain. Substernal chest pain radiating to right back. Dizziness yesterday. Started new keto diet. Reports lightheadedness with movement. PMH of Afib, GERD, HTN, CAD with stents, obesity, and LBBB She took 2 nitro tablets [employer]. This initial assessment/diagnostic orders/clinical plan/treatment(s) is/are subject to change based on patients health status, clinical progression and re- assessment by fellow clinical providers in the ED. Further treatment and workup at subsequent clinical providers discretion. Patient/guardian urged not to elope from the ED as their condition may be serious if not clinically assessed and managed. Initial orders include: EKG, labs, and CXR Main ER
--- NOTE | 2018-11-20 13:11 | XRay Report ---
CHEST 2 VIEWS INDICATION: Chest pain. COMPARISON: 09/07/2018. FINDINGS: PA and lateral chest radiographs demonstrate stable cardiomediastinal silhouette/top normal heart size. Clear lungs. Mild mid to lower thoracic spine degenerative spurring. Bilateral nipple ornaments. CONCLUSION: No acute disease in the chest. Thank you for the opportunity to participate in this patient's care.
[2018-11-20] MEDS ORDERED: ZOFRAN IV ONE (14:33)
[2018-11-20] MEDS ORDERED: NITRO-BID 2% TP ONE (14:33)
[2018-11-20] MEDS ORDERED: SUBLIMAZE IV ONE (14:33)
--- NOTE | 2018-11-20 14:45 | Emergency Department Report ---
HPI - General Chief Complaint: Chest Pain Time Seen by Provider: 11/20/18 12:30 - HPI HPI: Room 17 The patient is a 38-year-old female presenting with a chief complaint chest pain and dizziness. Patient states yesterday she had intermittent dizziness. Today she began having intermittent dizziness and headache is preceded by chest heaviness associated with shortness of breath and nausea. Patient denies vomiting or diaphoresis. The patient states she is taking sublingual nitroglycerin and it helped with the chest heaviness but her symptoms returned. The patient states her symptoms feel similar to when she was diagnosed with flash pulmonary edema Location: [See above] Duration: [See above] Quality: [See above] Severity: [See above] Modifying factors: [see above] Context: [see above] Mode of transportation: [not driving] ED Past Medical Hx - Past Medical History Hx Hypertension: Yes Hx Heart Attack/AMI: Yes Hx Congestive Heart Failure: Yes Hx Diabetes: Yes Hx Kidney Stones: Yes Additional medical history: Flash pulmonary edema, kidney stents - Surgical History Hx Coronary Stent: Yes (LAD) Additional Surgical History: C/S, renal stents, Heart stent in the LAD 2 yrs ago - Family History Family history: no significant - Social History Smoking Status: Never Smoker Substance Use Type: None - Medications Home Medications: Home Medications Medication Instructions Recorded Confirmed Last Taken Type Insulin Glargine,Hum.rec.anlog 40 units SUB-Q BID 01/27/18 08/11/18 08/10/18 History [Basaglar Kwikpen U-100] Lisinopril [Zestril] 20 mg PO QDAY 01/27/18 08/11/18 08/10/18 History Aspirin [Aspirin BABY CHEW TAB] 81 mg PO QDAY tab.chew 02/22/18 08/11/18 08/10/18 Rx Furosemide [Lasix TAB] 40 mg PO QDAY 08/11/18 08/11/18 08/10/18 History Insulin Glulisine [Apidra Solostar] 12 unit SQ QID 11/20/18 11/20/18 Unknown History Loratadine 10 mg PO DAILY 11/20/18 11/20/18 Unknown History ED Review of Systems ROS: Stated complaint: CHEST PAIN Other details as noted in HPI Constitutional: denies: diaphoresis Eyes: denies: eye pain ENT: denies: throat pain Respiratory: shortness of breath Cardiovascular: chest pain Endocrine: no symptoms reported Gastrointestinal: nausea Musculoskeletal: denies: back pain Neurological: headache, other (dizziness) Physical Exam - Physical Exam Vital Signs: Vital Signs 11/20/18 12:29 Temperature 98.1 F Pulse Rate 122 H Respiratory 22 Rate Blood Pressure 183/97 O2 Sat by Pulse 97 Oximetry Physical Exam: GENERAL: The patient is well-developed well-nourished female lying on stretcher not appearing to be in acute distress. [] HEENT: Normocephalic. Atraumatic. Extraocular motions are intact. Patient has moist mucous membranes. NECK: Supple. Trachea midline CHEST/LUNGS: Clear to auscultation. There is no respiratory distress noted. HEART/CARDIOVASCULAR: Regular. There is no tachycardia. There is no gallop rub or murmur. ABDOMEN: Abdomen is soft, nontender. Patient has normal bowel sounds. There is no abdominal distention. SKIN: There is no rash. There is no edema. There is no diaphoresis. NEURO: The patient is awake, alert, and oriented. The patient is cooperative. The patient has normal speech MUSCULOSKELETAL: There is no evidence of acute injury. ED Course Vital Signs 11/20/18 12:29 Temperature 98.1 F Pulse Rate 122 H Respiratory 22 Rate Blood Pressure 183/97 O2 Sat by Pulse 97 Oximetry ED Medical Decision Making - Lab Data Result diagrams: 11/20/18 13:26 11/20/18 13:26 Laboratory Tests 11/20/18 11/20/18 13:26 13:26 WBC 11.5 H RBC 4.51 Hgb 13.9 Hct 41.2 MCV 91 MCH 31 MCHC 34 RDW 13.7 Lymph % (Auto) 21.8 Geary % (Auto) 6.1 Eos % (Auto) 2.0 Baso % (Auto) 0.8 Lymph # 2.5 Geary # 0.7 Eos # 0.2 Baso # 0.1 Seg Neutrophils % 69.3 Seg Neutrophils # 8.0 H Sodium 138 Potassium 4.6 Chloride 99.8 Carbon Dioxide 21 L Anion Gap 22 BUN 14 Creatinine 0.8 Estimated GFR > 60 BUN/Creatinine Ratio 18 Glucose 310 H Calcium 9.6 Troponin T < 0.010 - EKG Data -: EKG Interpreted by Id EKG shows normal: sinus rhythm Rate: tachycardia (106 bpm) - EKG Data When compared to previous EKG there are: no significant change Interpretation: unchanged when compared t (09/07/2018 (left bundle)) - Radiology Data Radiology results: report reviewed (chest x-ray), image reviewed (chest x-ray) interpreted by me: Chest x-ray-no focal infiltrates, no pneumothorax [facility] [address] [place] [address] XRay Report Signed Patient: SHLOMO DECKER MR#: [id number] : 1980 Acct:[id number] Age/Sex: 38 / F ADM Date: 11/20/18 Loc: ED Attending Dr: Ordering Physician: GLORIA PAULINO Date of Service: 11/20/18 Procedure(s): XR chest routine 2V Accession Number(s): [id number] cc: GLORIA PAULINO Fluoro Time In Minutes: CHEST 2 VIEWS INDICATION: Chest pain. MIN RISON: 09/07/2018. FINDINGS: PA and lateral chest radiographs demonstrate stable cardiomediastinal silhouette/top normal heart size. Clear lungs. Mild mid to lower thoracic spine degenerative spurring. Bilateral nipple ornaments. CONCLUSION: No acute disease in the chest. Thank you for the opportunity to participate in this patient's care. Transcribed By: RS Dictated By: CHARO MITCHELL MD Electronically Authenticated By: CHARO MITCHELL MD Signed Date/Time: 11/20/18 1310 DD/ 1308 TD/TT: 11/20/18 1310 - Differential Diagnosis ACS, pericarditis, dysrhythmia Critical care attestation.: If time is entered above; I have spent that time in minutes in the direct care of this critically ill patient, excluding procedure time. ED Disposition Clinical Impression: Chest pain, Dizziness Disposition: -09 OP ADMIT IP TO THIS HOSP Is pt being admited?: Yes Does the pt Need Aspirin: Yes Condition: Fair Instructions: Chest Pain (ED) Referrals: PRIMARY CARE, [Referring] - 3-5 Days Time of Disposition: 15:35 (hospitalist paged (Dr Saldaña))
[2018-11-20 15:00] LABS: Basophils # (Auto) 0.1 K/mm3 (0.0-0.1); Basophils % (Auto) 0.8 % (0.0-1.8); Eosinophils # (Auto) 0.2 K/mm3 (0.0-0.4); Hematocrit 41.2 % (30.3-42.9); Hemoglobin 13.9 gm/dl (10.1-14.3); Lymphocytes # (Auto) 2.5 K/mm3 (1.2-5.4); Lymphocytes % (Auto) 21.8 % (13.4-35.0); Mean Corpuscular HGB Conc 34 % (30-34); Mean Corpuscular Volume 91 fl (79-97); Monocytes # (Auto) 0.7 K/mm3 (0.0-0.8); Monocytes % (Auto) 6.1 % (0.0-7.3); Red Blood Count 4.51 M/mm3 (3.65-5.03); Red Cell Distribution Width 13.7 % (13.2-15.2)
[2018-11-20 15:23] LABS: BUN/Creatinine Ratio 18; Blood Urea Nitrogen 14 mg/dL (7-17); Calcium 9.6 mg/dL (8.4-10.2); Hemolysis Index 50
[2018-11-20] MEDS ORDERED: PLAVIX PO ONE (15:36)
[2018-11-20 15:45] LABS: Platelet Count 213 K/mm3 (140-440)
--- NOTE | 2018-11-20 16:14 | History and Physical Report ---
History of Present Illness Chief complaint: My chest hurts History of present illness: 38 YO Female with HTN, UT, CHF, DM, Nephrolithiasis, CAD S/P LAD Stent Placement, MO, Obesity Hypoventilation presents to ED for evaluation. Pt states that she has experienced dizzines, headache, and pain in her chest over the past 1 day with persistent symptoms over the same time frame. Pt states that her pain is 5/10, crushing in nature, relieved with nitro, worsened with exertion, relieved with rest, associated with shortness of breath. Pt also acknowledges decreased exercise tolerance, dypsnea on exertion, and dypsnea at rest. Pt denies prolonged travel/immobility, unilateral leg swelling, calf pain, productive cough, hemoptysis, skin rash or recent ill contacts. Pt transported to [facility] via private vehicle. Pt seen and evaluated in ED and found to have symptoms consistent with Angina as well as CHF Decompensation. Pt admitted to telemetry. Cardiology team consulted in ED. Prior admission on 08/11/18 reviewed. All listed medication reconciled at time of admission. Past History Past Medical History: acute UT, CAD, diabetes, heart failure, hypertension, other (MO, Nephrolithiasis, Obesity Hypoventilation Syndrome) Past Surgical History: Other (Cardiac Stent, Renal stent) Social history: single. denies: smoking, alcohol abuse, prescription drug abuse Family history: diabetes, hypertension Medications and Allergies Allergies Allergy/AdvReac Type Severity Reaction Status Date / Time azithromycin [From Zithromax] Allergy Swelling Verified 11/20/18 12:27 diphenhydramine Allergy Angioedema Verified 11/20/18 12:27 [From Benadryl] ketorolac [From Toradol] Allergy Angioedema Verified 11/20/18 12:27 metformin Allergy Rash Verified 11/20/18 12:27 naproxen Allergy Hives Verified 11/20/18 12:27 nonoxynol 9 Allergy Swelling Verified 11/20/18 12:27 [From [place] Plus Spermicidal Jelly] Home Medications Medication Instructions Recorded Confirmed Last Taken Type Insulin Glargine,Hum.rec.anlog 80 units SUB-Q QHS 01/27/18 11/20/18 08/10/18 History [Basaglar Josepen U-100] Lisinopril [Zestril] 40 mg PO QDAY 01/27/18 11/20/18 08/10/18 History Aspirin [Aspirin BABY CHEW TAB] 81 mg PO QDAY tab.chew 02/22/18 11/20/18 08/10/18 Rx Furosemide [Lasix TAB] 40 mg PO QDAY 08/11/18 11/20/18 08/10/18 History Insulin Glulisine [Apidra Solostar] 12 unit SQ QID 11/20/18 11/20/18 Unknown History Loratadine 10 mg PO DAILY 11/20/18 11/20/18 Unknown History Review of Systems Constitutional: no weight loss, no weight gain, no fever, no chills Ears, nose, mouth and throat: no ear pain, no ear discharge, no tinnitis, no decreased hearing Breasts: no change in shape, no swelling, no mass Cardiovascular: chest pain, shortness of breath, dyspnea on exertion, decreased exercise tolerance, no palpitations, no rapid/irregular heart beat, no syncope Respiratory: no cough, no cough with sputum, no excessive sputum, no hemoptysis Gastrointestinal: no abdominal pain, no nausea, no vomiting, no diarrhea Genitourinary Female: no pelvic pain, no flank pain, no menorrhagia, no dysuria Rectal: no pain, no incontinence, no bleeding Musculoskeletal: no neck stiffness, no neck pain, no shooting arm pain, no arm numbness/tingling, no low back pain Integumentary: no rash, no pruritis, no redness, no sores, no wounds Neurological: no transient paralysis, no paralysis, no weakness, no parathesias, no numbness, no tingling Psychiatric: no anxiety, no memory loss, no change in sleep habits, no sleep disturbances, no insomnia Endocrine: no cold intolerance, no heat intolerance, no excessive thirst, no polydipsia, no polyuria Hematologic/Lymphatic: no easy bruising, no easy bleeding Allergic/Immunologic: no urticaria, no allergic rhinitis, no wheezing Exam - Constitutional Vitals: Temp Pulse Resp BP Pulse Ox 98.1 F 88 20 135/92 94 11/20/18 12:29 11/20/18 15:30 11/20/18 15:30 11/20/18 15:30 11/20/18 15:30 General appearance: Present: mild distress, obese - EENT Eyes: Present: PERRL ENT: hearing intact, clear oral mucosa - Neck Neck: Present: supple, normal ROM - Respiratory Respiratory effort: normal Respiratory: bilateral: CTA - Cardiovascular Heart Sounds: Present: S1 & S2. Absent: rub, click - Extremities Extremities: pulses symmetrical, No edema Peripheral Pulses: within normal limits - Abdominal General gastrointestinal: Present: soft, non-tender, non-distended, normal bowel sounds Female genitourinary: Present: normal - Integumentary Integumentary: Present: clear, warm, dry - Musculoskeletal Musculoskeletal: gait normal, strength equal bilaterally - Psychiatric Psychiatric: appropriate mood/affect, intact judgment & insight - Neurologic Neurologic: CNII-XII intact, moves all extremities Results - Labs CBC & Chem 7: 11/21/18 04:56 11/21/18 04:56 Labs: Abnormal lab results 11/20/18 11/20/18 Range/Units 13:26 13:26 WBC 11.5 H (4.5-11.0) K/mm3 Seg Neutrophils # 8.0 H (1.8-7.7) K/mm3 Carbon Dioxide 21 L (22-30) mmol/L Glucose 310 H (65-100) mg/dL Assessment and Plan - Patient Problems (1) CHF (congestive heart failure) Current Visit: Yes Status: Acute Qualifiers: Heart failure type: systolic Heart failure chronicity: acute Qualified Code(s): I50.21 - Acute systolic (congestive) heart failure Plan to address problem: Admit to telemetry, Strict I/O, daily weight, afterload reduction, monitor uop q shift, Echo, D dimer, BNP, supplemental oxygen, cardiology consulted, thyroid panel, magnesium level (2) Obesity hypoventilation syndrome Current Visit: Yes Status: Acute (3) Acidosis Current Visit: Yes Status: Acute (4) Obesity Current Visit: Yes Status: Acute Qualifiers: Body mass index: BMI 45.0-49.9 (5) CAD (coronary artery disease) Current Visit: Yes Status: Acute Qualifiers: Associated angina: with stable angina Plan to address problem: Lipid panel, statin therapy, low cholesterol diet, risk factor reduction (6) Nephrolithiasis Current Visit: Yes Status: Acute Plan to address problem: supportive care, Outpatient Urology F/U, S/P Stent placement;POA (7) Diabetes Current Visit: No Status: Chronic Plan to address problem: ADA diet, insulin, accucheck, hypoglycemia protocol (8) Angina at rest Current Visit: Yes Status: Acute Plan to address problem: serial cardiac enzymes, ekg, telemetry, d dimer, CTA chest, morphine, supplemental oxygen, nitro, aspirin. cardiology consulted. (9) DVT prophylaxis Current Visit: Yes Status: Acute
[2018-11-20] MEDS ORDERED: PROVENTIL IH PRN (16:17)
[2018-11-20] MEDS ORDERED: SODIUM CHLORIDE FLUSH SYRINGE 10 ML IV PRN ×2 (16:17)
[2018-11-20] MEDS ORDERED: D50W (25GM) Syringe IV PRN ×2 (16:22)
[2018-11-20] MEDS: HumaLOG SUB-Q SCH ×3 (17:01→22:17)
[2018-11-20] MEDS: MORPHINE IV PRN ×2 (17:07→22:19)
[2018-11-20 17:20] LABS: Chol/HDL Ratio 6.4 %
[2018-11-20] MEDS: TYLENOL PO PRN (17:35)
[2018-11-20] MEDS ORDERED: INSULIN GLULISINE SQ SCH (18:00)
--- NOTE | 2018-11-20 19:37 | Cat Scan Report ---
PROCEDURE: CT angiogram chest with contrast. TECHNIQUE: Computerized tomographic angiography of the chest was performed after the IV injection of iodinated nonionic contrast including image processing. The image data was postprocessed using 2-di mensional multiplanar reformatted (MPR) and 3-dimensional (MIP and/or volume rendered) techniques. Au tomated exposure control, adjustment of mA and/or kV according to patient size, or iterative reconstr uction dose optimization techniques were utilized. CT DOSE LENGTH PRODUCT: 780.6 mGycm HISTORY: Chest pain. COMPARISONS: CT angiogram chest 09/07/2018. FINDINGS: The trachea and central bronchi appear normal. The lungs are clear and well expanded. There are no si gns of pneumonia. There are no pleural effusions. The thoracic aorta has a normal caliber without leisa dence of dissection. The pulmonary arteries enhance normally. There are no signs of pulmonary embolis m. There is no mediastinal adenopathy. The heart size is mildly enlarged. The adrenal glands are not enlarged. The thoracic skeleton appears intact. IMPRESSION: Normal study. This document is electronically signed by Uday Mckee MD., November 20 2018 07:35:07 PM ET
[2018-11-20] MEDS: ZOFRAN IV PRN (22:19)
[2018-11-20] MEDS: PEPCID PO SCH (22:19)
[2018-11-20] MEDS: SODIUM CHLORIDE FLUSH SYRINGE 10 ML IV SCH (22:20)
[2018-11-21] MEDS: MORPHINE IV PRN ×4 (04:19→19:45)
[2018-11-21 05:32] LABS: Basophils # (Auto) 0.1 K/mm3 (0.0-0.1); Basophils % (Auto) 0.8 % (0.0-1.8); Eosinophils # (Auto) 0.3 K/mm3 (0.0-0.4); Eosinophils % (Auto) 2.9 % (0.0-4.3); Hematocrit 37.4 % (30.3-42.9); Hemoglobin 12.9 gm/dl (10.1-14.3); Lymphocytes # (Auto) 1.9 K/mm3 (1.2-5.4); Lymphocytes % (Auto) 22.1 % (13.4-35.0); Mean Corpuscular HGB Conc 34 % (30-34); Mean Corpuscular Volume 92 fl (79-97); Monocytes # (Auto) 0.7 K/mm3 (0.0-0.8); Platelet Count 189 K/mm3 (140-440); Red Blood Count 4.08 M/mm3 (3.65-5.03); Red Cell Distribution Width 13.7 % (13.2-15.2)
[2018-11-21 05:57] LABS: Albumin 3.5 g/dL (3.9-5); BUN/Creatinine Ratio 16; Blood Urea Nitrogen 11 mg/dL (7-17); Calcium 8.6 mg/dL (8.4-10.2); Hemolysis Index 124
[2018-11-21 06:18] LABS: Alanine Aminotransferase 28 units/L (7-56)
[2018-11-21 07:59] LABS: Free T4 (Free Thyroxine) 0.81 ng/dL (0.76-1.46)
[2018-11-21] MEDS: HumaLOG SUB-Q SCH ×8 (08:49→22:26)
--- NOTE | 2018-11-21 11:04 | Consultation ---
<ALBERTO STOVER - Last Filed: 11/21/18 11:06> History of Present Illness Consult date: 11/21/18 Requesting physician: BISHOP WILLIAM Consult reason: chest pain History of present illness: Ms. Sethi is a 38 y/o female with a history significant for SC s/p PCI of LAD in 2016 at [facility], heart failure, ? paroxysmal atrial fibrillation, hypertension, diabetes, hyperlipidemia, GERD and anxiety who presented to the ED with chest pain that began the day before while running errands. She reports that she became dizzy and short of breath while driving, which was followed shortly thereafter by chest pain and transient loss of vision. She took two nitroglycerin tablets on her way to the ED, which provided no relief. She describes the pain as sharp, midsternal and radiating to her back. She also endorses right-sided upper abdominal pain that radiates to her chest. EKG negative for STEMI, troponins negative x3 and CTA negative for PE. On examination, she notes that the pain is reproducible upon palpation. Cardiac catheterization on 08/12/2018 found a patent stent in the mid-LAD and no CAD. A TTE performed at an outside hospital on 08/02/18 found an EF of 45 to 50 percent, moderate LVH, grade 2 diastolic function, hypokinetic septal wall and mildly hypokinetic inferior wall. A pharmacologic MPI stress test on 08/03/18 was negative for ischemia and infarction. Past History Past Medical History: acute SC, CAD, diabetes, heart failure, hypertension, other ([place], Nephrolithiasis, Obesity Hypoventilation Syndrome) Past Surgical History: Other (Cardiac Stent, Renal stent) Social history: single. denies: smoking, alcohol abuse, prescription drug abuse Family history: diabetes, hypertension Medications and Allergies Allergies Allergy/AdvReac Type Severity Reaction Status Date / Time azithromycin [From Zithromax] Allergy Swelling Verified 11/20/18 12:27 diphenhydramine Allergy Angioedema Verified 11/20/18 12:27 [From Benadryl] ketorolac [From Toradol] Allergy Angioedema Verified 11/20/18 12:27 metformin Allergy Rash Verified 11/20/18 12:27 naproxen Allergy Hives Verified 11/20/18 12:27 nonoxynol 9 Allergy Swelling Verified 11/20/18 12:27 [From [place] Plus Spermicidal Jelly] Home Medications Medication Instructions Recorded Confirmed Last Taken Type Insulin Glargine,Hum.rec.anlog 80 units SUB-Q QHS 01/27/18 11/20/18 08/10/18 History [Basaglfaizan Garciapen U-100] Lisinopril [Zestril] 40 mg PO QDAY 01/27/18 11/20/18 08/10/18 History Aspirin [Aspirin BABY CHEW TAB] 81 mg PO QDAY tab.chew 02/22/18 11/20/18 08/10/18 Rx Furosemide [Lasix TAB] 40 mg PO QDAY 08/11/18 11/20/18 08/10/18 History Insulin Glulisine [Apidra Solostar] 12 unit SQ QID 11/20/18 11/20/18 Unknown History Loratadine 10 mg PO DAILY 11/20/18 11/20/18 Unknown History Active Meds: Active Medications Acetaminophen (Tylenol) 650 mg PO Q4H PRN PRN Reason: Pain MILD(1-3)/Fever >100.5/HOOK Last Admin: 11/20/18 17:35 Dose: 650 mg Documented by: Albuterol (Proventil) 2.5 mg IH Q4HRT PRN PRN Reason: Shortness Of Breath Aspirin (Baby Aspirin) 81 mg PO QDAY [facility] Dextrose (D50w (25gm) Syringe) 50 ml IV PRN PRN PRN Reason: Hypoglycemia Famotidine (Pepcid) 20 mg PO BID [facility] Last Admin: 11/20/18 22:19 Dose: 20 mg Documented by: Furosemide (Lasix) 40 mg IV QDAY [facility] Insulin Human Lispro (Humalog) 0 unit SUB-Q [facility]; Protocol Last Admin: 11/21/18 08:49 Dose: 3 unit Documented by: Insulin Human Lispro (Humalog) 12 unit SUB-Q [facility] Last Admin: 11/21/18 08:50 Dose: 12 unit Documented by: Lisinopril (Zestril) 40 mg PO QDAY [facility] Loratadine (Claritin) 10 mg PO DAILY [facility] Morphine Sulfate (Morphine) 2 mg IV Q4H PRN PRN Reason: Pain, Moderate (4-6) Last Admin: 11/21/18 08:31 Dose: 2 mg Documented by: Ondansetron HCl (Zofran) 4 mg IV Q8H PRN PRN Reason: Nausea And Vomiting Last Admin: 11/20/18 22:19 Dose: 4 mg Documented by: Sodium Chloride (Sodium Chloride Flush Syringe 10 Ml) 10 ml IV BID ALEJANDRA Last Admin: 11/20/18 22:20 Dose: 10 ml Documented by: Sodium Chloride (Sodium Chloride Flush Syringe 10 Ml) 10 ml IV PRN PRN PRN Reason: LINE FLUSH Sodium Chloride (Sodium Chloride Flush Syringe 10 Ml) 10 ml IV PRN PRN PRN Reason: LINE FLUSH Review of Systems All systems: negative Cardiovascular: chest pain Gastrointestinal: abdominal pain (RUQ) Physical Examination Vital Signs Temp Pulse Resp BP Pulse Ox 98.1 F 122 H 22 183/97 97 11/20/18 12:29 11/20/18 12:29 11/20/18 12:29 11/20/18 12:29 11/20/18 12:29 General appearance: no acute distress HEENT: Positive: PERRL Cardiac: Positive: Reg Rate and Rhythm Lungs: Positive: Normal Exam Neuro: Positive: Grossly Intact Abdomen: Positive: Other (obese) Female genitourinary: deferred Skin: Positive: Clear Musculoskeletal: Normal Range of Motion Extremities: Present: normal Results 11/21/18 04:56 11/21/18 04:56 Cardiac Enzymes 11/21/18 Range/Units 04:56 AST 29 (5-40) units/L Lipids 11/20/18 Range/Units 16:49 Triglycerides 283 H (2-149) mg/dL Cholesterol 256 H (50-199) mg/dL HDL Cholesterol 40 (40-59) mg/dL Cholesterol/HDL Ratio 6.40 % CBC 11/20/18 11/21/18 Range/Units 13:26 04:56 WBC 11.5 H 8.6 (4.5-11.0) K/mm3 RBC 4.51 4.08 (3.65-5.03) M/mm3 Hgb 13.9 12.9 (10.1-14.3) gm/dl Hct 41.2 37.4 (30.3-42.9) % Plt Count 213 189 (140-440) K/mm3 Lymph # 2.5 1.9 (1.2-5.4) K/mm3 [place] # 0.7 0.7 (0.0-0.8) K/mm3 Eos # 0.2 0.3 (0.0-0.4) K/mm3 Baso # 0.1 0.1 (0.0-0.1) K/mm3 Comprehensive Metabolic Panel 11/20/18 11/21/18 Range/Units 13:26 04:56 Sodium 138 133 L (137-145) mmol/L Potassium 4.6 4.7 (3.6-5.0) mmol/L Chloride 99.8 98.4 (98-107) mmol/L Carbon Dioxide 21 L 23 (22-30) mmol/L BUN 14 11 (7-17) mg/dL Creatinine 0.8 0.7 (0.7-1.2) mg/dL Glucose 310 H 243 H (65-100) mg/dL Calcium 9.6 8.6 (8.4-10.2) mg/dL AST 29 (5-40) units/L ALT 28 (7-56) units/L Alkaline Phosphatase 62 (35-129) units/L Total Protein 6.9 (6.3-8.2) g/dL Albumin 3.5 L (3.9-5) g/dL - Imaging and Cardiology Stress echo: report reviewed (Negative for ischemia and infarction) Echo: report reviewed (EF 45-50%, mod LVH, grade 2 diastolic dysf, septal wall hypokinetic, inferior wall mildly hypokinetic) Cardiac cath: report reviewed (patent LAD stent, no CAD) EKG interpretations - EKG Sinus rhythms and dysrhythmias: sinus rhythm AV and intraventricular conduction: left bundle branch block Assessment and Plan Chest pain likely musculoskeletal in etiology given reproducibility. She is stable and may discharge from a cardiac standpoint. Continue current cardiac management. Will start on statin, which was recommended after cardiac catheterization in July, but per patient, she was unable to follow-up at our office and does not have a PCP. Recommend follow-up with Dr. Pablo in one month at our office - call . Patient has been seen in conjunction with Dr. Pablo, who agrees with assessment and plan. - Patient Problems (1) Chest pain Current Visit: Yes Status: Acute (2) Cardiomyopathy Current Visit: Yes Status: Chronic (3) CAD (coronary artery disease) Current Visit: Yes Status: Chronic Qualifiers: Associated angina: with stable angina (4) Dizziness Current Visit: Yes Status: Resolved (5) Obesity Current Visit: Yes Status: Chronic Qualifiers: Body mass index: BMI 45.0-49.9 (6) LBBB (left bundle branch block) Current Visit: No Status: Chronic (7) GERD (gastroesophageal reflux disease) Current Visit: No Status: Chronic Qualifiers: Esophagitis presence: with esophagitis Qualified Code(s): K21.0 - Gastro- esophageal reflux disease with esophagitis (8) Hypertension Current Visit: No Status: Chronic Qualifiers: Hypertension type: essential hypertension Qualified Code(s): I10 - Essential (primary) hypertension (9) Stented coronary artery Current Visit: No Status: Chronic (10) Paroxysmal atrial fibrillation Current Visit: No Status: Suspected <DONATO PABLO R - Last Filed: 11/21/18 11:45> Medications and Allergies Active Meds: Active Medications Acetaminophen (Tylenol) 650 mg PO Q4H PRN PRN Reason: Pain MILD(1-3)/Fever >100.5/HOOK Last Admin: 11/20/18 17:35 Dose: 650 mg Documented by: Albuterol (Proventil) 2.5 mg IH Q4HRT PRN PRN Reason: Shortness Of Breath Aspirin (Baby Aspirin) 81 mg PO QDAY [facility] Last Admin: 11/21/18 11:08 Dose: 81 mg Documented by: Dextrose (D50w (25gm) Syringe) 50 ml IV PRN PRN PRN Reason: Hypoglycemia Famotidine (Pepcid) 20 mg PO BID [facility] Last Admin: 11/21/18 11:08 Dose: 20 mg Documented by: Furosemide (Lasix) 40 mg IV QDAY [facility] Last Admin: 11/21/18 11:08 Dose: 40 mg Documented by: Insulin Human Lispro (Humalog) 0 unit SUB-Q [facility]; Protocol Last Admin: 11/21/18 08:49 Dose: 3 unit Documented by: Insulin Human Lispro (Humalog) 12 unit SUB-Q [facility] Last Admin: 11/21/18 08:50 Dose: 12 unit Documented by: Lisinopril (Zestril) 40 mg PO QDAY [facility] Last Admin: 11/21/18 11:08 Dose: 40 mg Documented by: Loratadine (Claritin) 10 mg PO DAILY [facility] Last Admin: 11/21/18 11:08 Dose: 10 mg Documented by: Morphine Sulfate (Morphine) 2 mg IV Q4H PRN PRN Reason: Pain, Moderate (4-6) Last Admin: 11/21/18 08:31 Dose: 2 mg Documented by: Ondansetron HCl (Zofran) 4 mg IV Q8H PRN PRN Reason: Nausea And Vomiting Last Admin: 11/20/18 22:19 Dose: 4 mg Documented by: Sodium Chloride (Sodium Chloride Flush Syringe 10 Ml) 10 ml IV BID [facility] Last Admin: 11/21/18 11:09 Dose: 10 ml Documented by: Sodium Chloride (Sodium Chloride Flush Syringe 10 Ml) 10 ml IV PRN PRN PRN Reason: LINE FLUSH Sodium Chloride (Sodium Chloride Flush Syringe 10 Ml) 10 ml IV PRN PRN PRN Reason: LINE FLUSH Physical Examination Vital Signs Temp Pulse Resp BP Pulse Ox 98.1 F 122 H 22 183/97 97 11/20/18 12:29 11/20/18 12:29 11/20/18 12:29 11/20/18 12:29 11/20/18 12:29 Results 11/21/18 04:56 11/21/18 04:56 Cardiac Enzymes 11/21/18 Range/Units 04:56 AST 29 (5-40) units/L Lipids 11/20/18 Range/Units 16:49 Triglycerides 283 H (2-149) mg/dL Cholesterol 256 H (50-199) mg/dL HDL Cholesterol 40 (40-59) mg/dL Cholesterol/HDL Ratio 6.40 % CBC 11/20/18 11/21/18 Range/Units 13:26 04:56 WBC 11.5 H 8.6 (4.5-11.0) K/mm3 RBC 4.51 4.08 (3.65-5.03) M/mm3 Hgb 13.9 12.9 (10.1-14.3) gm/dl Hct 41.2 37.4 (30.3-42.9) % Plt Count 213 189 (140-440) K/mm3 Lymph # 2.5 1.9 (1.2-5.4) K/mm3 [place] # 0.7 0.7 (0.0-0.8) K/mm3 Eos # 0.2 0.3 (0.0-0.4) K/mm3 Baso # 0.1 0.1 (0.0-0.1) K/mm3 Comprehensive Metabolic Panel 11/20/18 11/21/18 Range/Units 13:26 04:56 Sodium 138 133 L (137-145) mmol/L Potassium 4.6 4.7 (3.6-5.0) mmol/L Chloride 99.8 98.4 (98-107) mmol/L Carbon Dioxide 21 L 23 (22-30) mmol/L BUN 14 11 (7-17) mg/dL Creatinine 0.8 0.7 (0.7-1.2) mg/dL Glucose 310 H 243 H (65-100) mg/dL Calcium 9.6 8.6 (8.4-10.2) mg/dL AST 29 (5-40) units/L ALT 28 (7-56) units/L Alkaline Phosphatase 62 (35-129) units/L Total Protein 6.9 (6.3-8.2) g/dL Albumin 3.5 L (3.9-5) g/dL Assessment and Plan Patient's chest pain is not suggestive of angina,EKG is non diagnostic,cardiac troponin levels are normal.Chest pain is improved.Patient's LDL is markedly elevated,not taking statin,add atorvastatin 80 mg qday,f/u in office.Had difficulty with transport in past,now has car,can come for f/u to office.ESN=715 mg/dl.
[2018-11-21] MEDS: CLARITIN PO SCH (11:08)
[2018-11-21] MEDS: BABY ASPIRIN PO SCH (11:08)
[2018-11-21] MEDS: PEPCID PO SCH ×2 (11:08→21:16)
[2018-11-21] MEDS: LASIX IV SCH (11:08)
[2018-11-21] MEDS: ZESTRIL PO SCH (11:08)
[2018-11-21] MEDS: SODIUM CHLORIDE FLUSH SYRINGE 10 ML IV SCH ×2 (11:09→21:18)
--- NOTE | 2018-11-21 14:16 | Progress Note ---
Assessment and Plan Assessment and plan: Costochondritis. Pain control and anti-inflammatory Chest pain. As above. EKG negative for STEMI, troponins negative x3 and CTA negative for PE. CAD. Cont palvix and ECASA GERD. PPI HTN. Resume antihypertensives Cardiomyopathy Paroxysmal afib. now NSR Right flank pain. Check renal US History Interval history: franck Sethi is a 38 y/o female with a history significant for VT s/p PCI of LAD in 2016 at [facility], heart failure, ? paroxysmal atrial fibrillation, hypertension, diabetes, hyperlipidemia, GERD and anxiety who presented to the ED with chest pain that began the day before while running errands. She also endorses right-sided upper abdominal pain that radiates to her chest. EKG negative for STEMI, troponins negative x3 and CTA negative for PE. On examination, she notes that the pain is reproducible upon palpation. A pharmacologic MPI stress test on 08/03/18 was negative for ischemia and infarction. Hospitalist Physical - Constitutional Vitals: Temp Pulse Resp BP Pulse Ox 97.7 F 76 20 138/82 96 11/21/18 08:02 11/21/18 11:08 11/21/18 13:05 11/21/18 11:08 11/21/18 08:02 General appearance: Present: no acute distress - EENT Eyes: Present: PERRL, EOM intact ENT: hearing intact, clear oral mucosa, dentition normal - Neck Neck: Present: supple, normal ROM - Respiratory Respiratory effort: normal Respiratory: bilateral: CTA - Cardiovascular Rhythm: regular Heart Sounds: Present: S1 & S2. Absent: gallop, rub - Extremities Extremities: no ischemia, No edema, Full ROM - Abdominal General gastrointestinal: soft, non-tender, non-distended, normal bowel sounds - Integumentary Integumentary: Present: clear, warm, dry - Neurologic Neurologic: CNII-XII intact, moves all extremities Results - Labs CBC & Chem 7: 11/21/18 04:56 11/21/18 04:56 Labs: Laboratory Last Values WBC 8.6 K/mm3 (4.5-11.0) 11/21/18 04:56 RBC 4.08 M/mm3 (3.65-5.03) 11/21/18 04:56 Hgb 12.9 gm/dl (10.1-14.3) 11/21/18 04:56 Hct 37.4 % (30.3-42.9) 11/21/18 04:56 MCV 92 fl (79-97) 11/21/18 04:56 MCH 32 pg (28-32) 11/21/18 04:56 MCHC 34 % (30-34) 11/21/18 04:56 RDW 13.7 % (13.2-15.2) 11/21/18 04:56 Plt Count 189 K/mm3 (140-440) 11/21/18 04:56 Lymph % (Auto) 22.1 % (13.4-35.0) 11/21/18 04:56 [place] % (Auto) 8.0 % (0.0-7.3) H 11/21/18 04:56 Eos % (Auto) 2.9 % (0.0-4.3) 11/21/18 04:56 Baso % (Auto) 0.8 % (0.0-1.8) 11/21/18 04:56 Lymph # 1.9 K/mm3 (1.2-5.4) 11/21/18 04:56 [place] # 0.7 K/mm3 (0.0-0.8) 11/21/18 04:56 Eos # 0.3 K/mm3 (0.0-0.4) 11/21/18 04:56 Baso # 0.1 K/mm3 (0.0-0.1) 11/21/18 04:56 Seg Neutrophils % 66.2 % (40.0-70.0) 11/21/18 04:56 Seg Neutrophils # 5.7 K/mm3 (1.8-7.7) 11/21/18 04:56 217.94 ng/mlDDU (0-234) 11/20/18 16:49 Sodium 133 mmol/L (137-145) L 11/21/18 04:56 Potassium 4.7 mmol/L (3.6-5.0) 11/21/18 04:56 Chloride 98.4 mmol/L (98-107) 11/21/18 04:56 Carbon Dioxide 23 mmol/L (22-30) 11/21/18 04:56 16 mmol/L 11/21/18 04:56 BUN 11 mg/dL (7-17) 11/21/18 04:56 0.7 mg/dL (0.7-1.2) 11/21/18 04:56 Estimated GFR > 60 ml/min 11/21/18 04:56 16 % 11/21/18 04:56 Glucose 243 mg/dL (65-100) H 11/21/18 04:56 POC Glucose 248 (70-105) H 11/21/18 12:46 10.2 % (4-6) H 11/20/18 16:49 Calcium 8.6 mg/dL (8.4-10.2) 11/21/18 04:56 Magnesium 1.90 mg/dL (1.7-2.3) 11/21/18 07:02 < 0.20 mg/dL (0.1-1.2) 11/21/18 04:56 AST 29 units/L (5-40) 11/21/18 04:56 ALT 28 units/L (7-56) 11/21/18 04:56 62 units/L (35-129) 11/21/18 04:56 < 0.010 ng/mL (0.00-0.029) 11/20/18 22:53 NT-Pro-B Natriuret Pep 155.6 pg/mL (0-450) 11/20/18 16:49 6.9 g/dL (6.3-8.2) 11/21/18 04:56 3.5 g/dL (3.9-5) L 11/21/18 04:56 1.0 % 11/21/18 04:56 Triglycerides 283 mg/dL (2-149) H 11/20/18 16:49 Cholesterol 256 mg/dL (50-199) H 11/20/18 16:49 203 mg/dL (50-130) H 11/20/18 16:49 40 mg/dL (40-59) 11/20/18 16:49 6.40 % 11/20/18 16:49 TSH 2.740 mlU/mL (0.270-4.200) 11/21/18 07:02 Free T4 0.81 ng/dL (0.76-1.46) 11/21/18 07:02 HCG, Qual Negative (Negative) 11/20/18 19:12 Active Medications - Current Medications Current Medications: Generic Name Dose Route Start Last Admin Trade Name Freq PRN Reason Stop Dose Admin Acetaminophen 650 mg 11/20/18 16:17 11/20/18 17:35 Tylenol PO 650 mg Q4H PRN Administration Pain MILD(1-3)/Fever >100.5/HOOK Albuterol 2.5 mg 11/20/18 16:17 Proventil IH Q4HRT PRN Shortness Of Breath Aspirin 81 mg 11/21/18 10:00 11/21/18 11:08 Baby Aspirin PO 81 mg QDAY ALEJANDRA Administration Dextrose 50 ml 11/20/18 16:22 D50w (25gm) Syringe IV PRN PRN Hypoglycemia Famotidine 20 mg 11/20/18 22:00 11/21/18 11:08 Pepcid PO 20 mg BID ALEJANDRA Administration Furosemide 40 mg 11/21/18 10:00 11/21/18 11:08 Lasix IV 40 mg QDAY ALEJANDRA Administration Insulin Human Lispro 0 unit 11/20/18 16:30 11/21/18 13:01 Humalog SUB-Q 3 unit [facility] ALEJANDRA Administration Protocol Insulin Human Lispro 12 unit 11/20/18 22:00 11/21/18 13:00 Humalog SUB-Q 12 unit ACHS ALEJANDRA Administration Lisinopril 40 mg 11/21/18 10:00 11/21/18 11:08 Zestril PO 40 mg QDAY ALEJANDRA Administration Loratadine 10 mg 11/21/18 10:00 11/21/18 11:08 Claritin PO 10 mg DAILY ALEJANDRA Administration Morphine Sulfate 2 mg 11/20/18 16:17 11/21/18 13:05 Morphine IV 2 mg Q4H PRN Administration Pain, Moderate (4-6) Ondansetron HCl 4 mg 11/20/18 16:17 11/20/18 22:19 Zofran IV 4 mg Q8H PRN Administration Nausea And Vomiting Sodium Chloride 10 ml 11/20/18 22:00 11/21/18 11:09 Sodium Chloride Flush Syringe 10 Ml IV 10 ml BID ALEJANDRA Administration Sodium Chloride 10 ml 11/20/18 16:17 Sodium Chloride Flush Syringe 10 Ml IV PRN PRN LINE FLUSH Sodium Chloride 10 ml 11/20/18 16:17 Sodium Chloride Flush Syringe 10 Ml IV PRN PRN LINE FLUSH
[2018-11-21] MEDS: TYLENOL PO PRN (21:16)
[2018-11-21] MEDS: ZOFRAN IV PRN (21:17)
[2018-11-21 23:30] LABS: Bacteria,Urine 1+ /HPF (Negative); Bilirubin,Urine NEG (Negative); Blood,Urine SM (Negative); Color,Urine Yellow (Yellow); Mucus,Urine FEW /HPF; Protein,Urine <15 mg/dL mg/dL (Negative); Urobilinogen,Urine < 2.0 mg/dL (<2.0)
[2018-11-22] MEDS: MORPHINE IV PRN ×5 (01:06→21:29)
[2018-11-22] MEDS: HumaLOG SUB-Q SCH ×8 (08:47→21:30)
--- NOTE | 2018-11-22 10:02 | Progress Note ---
Assessment and Plan Patient is a 38 y/o female admitted to ED with CP that radiated to back and worsened with palpation. Also c/o RUQ abdominal pain. Troponins negative x3, EKG unremarkable. Recently underwent PCI in July. CP non-cardiac in origin. Will undergo renal U/S as ordered by primary MD. Patient does report a history of paroxysmal atrial fibrillation and is currently on aspirin and Plavix s/p stent placement. She is currently stable from a cardiac standpoint and may d/c from our perspective. Continue current cardiac management. Patient has been seen in conjunction with Dr. Ferguson, who agrees with assessment and plan. - Patient Problems (1) Chest pain Current Visit: Yes Status: Acute (2) Cardiomyopathy Current Visit: Yes Status: Chronic (3) CAD (coronary artery disease) Current Visit: Yes Status: Chronic Qualifiers: Associated angina: with stable angina (4) Dizziness Current Visit: Yes Status: Resolved (5) Obesity Current Visit: Yes Status: Chronic Qualifiers: Body mass index: BMI 45.0-49.9 (6) LBBB (left bundle branch block) Current Visit: No Status: Chronic (7) GERD (gastroesophageal reflux disease) Current Visit: No Status: Chronic Qualifiers: Esophagitis presence: with esophagitis Qualified Code(s): K21.0 - Gastro- esophageal reflux disease with esophagitis (8) Hypertension Current Visit: No Status: Chronic Qualifiers: Hypertension type: essential hypertension Qualified Code(s): I10 - Essential (primary) hypertension (9) Stented coronary artery Current Visit: No Status: Chronic (10) Paroxysmal atrial fibrillation Current Visit: No Status: Suspected Subjective Date of service: 11/22/18 Interval history: Patient lying in bed in NAD. She c/o upper abdominal pain that starts on right side and radiates to left. Reports that CP still occurs intermittently, but is less severe. Objective Vital Signs Temp Pulse Resp Resp BP BP Pulse Ox 11/22/18 08:46 20 11/22/18 08:17 97.7 F 76 20 116/70 98 11/22/18 07:02 20 11/22/18 05:03 20 11/22/18 04:51 66 11/22/18 04:00 97.6 F 75 18 112/75 97 11/22/18 02:06 20 11/22/18 01:06 20 11/22/18 00:00 97.6 F 66 18 121/64 95 11/21/18 21:00 97.7 F 79 18 141/89 96 11/21/18 19:45 20 11/21/18 18:00 87 11/21/18 17:00 20 11/21/18 16:01 98.2 F 89 18 121/70 98 11/21/18 13:05 20 11/21/18 11:42 98.2 F 87 16 139/82 96 11/21/18 11:08 76 138/82 11/21/18 10:00 74 20 98 - Physical Examination HEENT: Positive: PERRL Neck: Positive: neck supple, thyromegaly Cardiac: Positive: Reg Rate and Rhythm Lungs: Positive: Normal Exam Neuro: Positive: Grossly Intact Abdomen: Positive: Tender, Other (obese) /Rectal: Other (Deferred) Skin: Positive: Clear Musculoskeletal: Normal Range of Motion Extremities: Present: normal - Imaging and Cardiology Stress echo: report reviewed (Negative for ischemia and infarction) Echo: report reviewed (EF 45-50%, mod LVH, grade 2 diastolic dysf, septal wall hypokinetic, inferior wall mildly hypokinetic) Cardiac cath: report reviewed (patent LAD stent, no CAD) - Telemetry EKG Rhythm: Sinus Rhythm - EKG Sinus rhythms and dysrhythmias: sinus rhythm AV and intraventricular conduction: left bundle branch block
[2018-11-22] MEDS: LASIX IV SCH (11:36)
[2018-11-22] MEDS: BABY ASPIRIN PO SCH (11:37)
[2018-11-22] MEDS: SODIUM CHLORIDE FLUSH SYRINGE 10 ML IV SCH ×2 (11:37→21:31)
[2018-11-22] MEDS: PEPCID PO SCH ×2 (11:37→21:29)
[2018-11-22] MEDS: ZESTRIL PO SCH (11:37)
[2018-11-22] MEDS: CLARITIN PO SCH (11:37)
--- NOTE | 2018-11-22 16:46 | Ultrasound Report ---
PROCEDURE: US RENAL RT TECHNIQUE: Ultrasound of the right kidney HISTORY: right flank pain COMPARISONS: FINDINGS: Right kidney measures 12.5 x 6.2 x 7.5 cm. Cortical thickness 1.2 cm. There is no evidence for hydron ephrosis Multiple shadowing echogenic foci are present. 6 of these are identified largest measuring 1.6 cm in maximum diameter. Renal echogenicity is unremarkable.. IMPRESSION: Multiple right renal calculi No evidence for hydronephrosis This document is electronically signed by Yann Padron MD., November 22 2018 04:45:04 PM ET
--- NOTE | 2018-11-22 18:21 | Progress Note ---
Assessment and Plan Assessment and plan: UTI. Start levaquin. check urine cultures Costochondritis. Pain control and anti-inflammatory Chest pain. As above. EKG negative for STEMI, troponins negative x3 and CTA negative for PE. CAD. Cont palvix and ECASA GERD. PPI HTN. Resume antihypertensives Cardiomyopathy Paroxysmal afib. now NSR Right flank pain. US shows no evidence of hydrnephrosis Disposition. likely d/c in am History Interval history: franck Sethi is a 38 y/o female with a history significant for CT s/p PCI of LAD in 2016 at [facility], heart failure, ? paroxysmal atrial fibrillation, hypertension, diabetes, hyperlipidemia, GERD and anxiety who presented to the ED with chest pain that began the day before while running errands. She also endorses right-sided upper abdominal pain that radiates to her chest. EKG negative for STEMI, troponins negative x3 and CTA negative for PE. On examination, she notes that the pain is reproducible upon palpation. A pharmacologic MPI stress test on 08/03/18 was negative for ischemia and infarction. Hospitalist Physical - Constitutional Vitals: Temp Pulse Resp BP Pulse Ox 97.4 F L 75 20 110/59 97 11/22/18 11:37 11/22/18 11:37 11/22/18 15:40 11/22/18 11:37 11/22/18 12:51 General appearance: Present: no acute distress - EENT Eyes: Present: PERRL, EOM intact ENT: hearing intact, clear oral mucosa, dentition normal - Neck Neck: Present: supple, normal ROM - Respiratory Respiratory effort: normal Respiratory: bilateral: CTA - Cardiovascular Rhythm: regular Heart Sounds: Present: S1 & S2. Absent: gallop, rub - Extremities Extremities: no ischemia, No edema, Full ROM - Abdominal General gastrointestinal: soft, non-tender, non-distended, normal bowel sounds - Integumentary Integumentary: Present: clear, warm, dry - Neurologic Neurologic: CNII-XII intact, moves all extremities Results - Labs CBC & Chem 7: 11/21/18 04:56 11/21/18 04:56 Labs: Laboratory Last Values WBC 8.6 K/mm3 (4.5-11.0) 11/21/18 04:56 RBC 4.08 M/mm3 (3.65-5.03) 11/21/18 04:56 Hgb 12.9 gm/dl (10.1-14.3) 11/21/18 04:56 Hct 37.4 % (30.3-42.9) 11/21/18 04:56 MCV 92 fl (79-97) 11/21/18 04:56 MCH 32 pg (28-32) 11/21/18 04:56 MCHC 34 % (30-34) 11/21/18 04:56 RDW 13.7 % (13.2-15.2) 11/21/18 04:56 Plt Count 189 K/mm3 (140-440) 11/21/18 04:56 Lymph % (Auto) 22.1 % (13.4-35.0) 11/21/18 04:56 [place] % (Auto) 8.0 % (0.0-7.3) H 11/21/18 04:56 Eos % (Auto) 2.9 % (0.0-4.3) 11/21/18 04:56 Baso % (Auto) 0.8 % (0.0-1.8) 11/21/18 04:56 Lymph # 1.9 K/mm3 (1.2-5.4) 11/21/18 04:56 [place] # 0.7 K/mm3 (0.0-0.8) 11/21/18 04:56 Eos # 0.3 K/mm3 (0.0-0.4) 11/21/18 04:56 Baso # 0.1 K/mm3 (0.0-0.1) 11/21/18 04:56 Seg Neutrophils % 66.2 % (40.0-70.0) 11/21/18 04:56 Seg Neutrophils # 5.7 K/mm3 (1.8-7.7) 11/21/18 04:56 217.94 ng/mlDDU (0-234) 11/20/18 16:49 Sodium 133 mmol/L (137-145) L 11/21/18 04:56 Potassium 4.7 mmol/L (3.6-5.0) 11/21/18 04:56 Chloride 98.4 mmol/L (98-107) 11/21/18 04:56 Carbon Dioxide 23 mmol/L (22-30) 11/21/18 04:56 16 mmol/L 11/21/18 04:56 BUN 11 mg/dL (7-17) 11/21/18 04:56 0.7 mg/dL (0.7-1.2) 11/21/18 04:56 Estimated GFR > 60 ml/min 11/21/18 04:56 16 % 11/21/18 04:56 Glucose 243 mg/dL (65-100) H 11/21/18 04:56 POC Glucose 193 (70-105) H 11/22/18 17:19 10.2 % (4-6) H 11/20/18 16:49 Calcium 8.6 mg/dL (8.4-10.2) 11/21/18 04:56 Magnesium 1.90 mg/dL (1.7-2.3) 11/21/18 07:02 < 0.20 mg/dL (0.1-1.2) 11/21/18 04:56 AST 29 units/L (5-40) 11/21/18 04:56 ALT 28 units/L (7-56) 11/21/18 04:56 62 units/L (35-129) 11/21/18 04:56 < 0.010 ng/mL (0.00-0.029) 11/20/18 22:53 NT-Pro-B Natriuret Pep 155.6 pg/mL (0-450) 11/20/18 16:49 6.9 g/dL (6.3-8.2) 11/21/18 04:56 3.5 g/dL (3.9-5) L 11/21/18 04:56 1.0 % 11/21/18 04:56 Triglycerides 283 mg/dL (2-149) H 11/20/18 16:49 Cholesterol 256 mg/dL (50-199) H 11/20/18 16:49 203 mg/dL (50-130) H 11/20/18 16:49 40 mg/dL (40-59) 11/20/18 16:49 6.40 % 11/20/18 16:49 TSH 2.740 mlU/mL (0.270-4.200) 11/21/18 07:02 Free T4 0.81 ng/dL (0.76-1.46) 11/21/18 07:02 HCG, Qual Negative (Negative) 11/20/18 19:12 Yellow (Yellow) 11/21/18 22:36 Slightly-cloudy (Clear) 11/21/18 22:36 6.0 (5.0-7.0) 11/21/18 22:36 Ur Specific [place] 1.022 (1.003-1.030) 11/21/18 22:36 <15 mg/dl mg/dL (Negative) 11/21/18 22:36 >=500 mg/dL (Negative) 11/21/18 22:36 Neg mg/dL (Negative) 11/21/18 22:36 Sm (Negative) 11/21/18 22:36 Neg (Negative) 11/21/18 22:36 Neg (Negative) 11/21/18 22:36 < 2.0 mg/dL (<2.0) 11/21/18 22:36 Ur Leukocyte Esterase Mod (Negative) 11/21/18 22:36 28.0 /HPF (0.0-6.0) H 11/21/18 22:36 6.0 /HPF (0.0-6.0) 11/21/18 22:36 U Epithel Cells (Auto) 10.0 /HPF (0-13.0) 11/21/18 22:36 1+ /HPF (Negative) 11/21/18 22:36 Few /HPF 11/21/18 22:36 Active Medications - Current Medications Current Medications: Generic Name Dose Route Start Last Admin Trade Name Freq PRN Reason Stop Dose Admin Acetaminophen 650 mg 11/20/18 16:17 11/21/18 21:16 Tylenol PO 650 mg Q4H PRN Administration Pain MILD(1-3)/Fever >100.5/HOOK Albuterol 2.5 mg 11/20/18 16:17 Proventil IH Q4HRT PRN Shortness Of Breath Aspirin 81 mg 11/21/18 10:00 11/22/18 11:37 Baby Aspirin PO 81 mg QDAY ALEJANDRA Administration Dextrose 50 ml 11/20/18 16:22 D50w (25gm) Syringe IV PRN PRN Hypoglycemia Famotidine 20 mg 11/20/18 22:00 11/22/18 11:37 Pepcid PO 20 mg BID ALEJANDRA Administration Furosemide 40 mg 11/21/18 10:00 11/22/18 11:36 Lasix IV 40 mg QDAY [facility] Administration Levofloxacin/Dextrose 500 mg in 100 mls @ 100 mls/hr 11/23/18 10:00 Levaquin 500mg/100ml IV Q24HR [facility] Protocol Insulin Glargine 40 units 11/22/18 22:00 Lantus SUB-Q BID ALEJANDRA Insulin Human Lispro 0 unit 11/20/18 16:30 11/22/18 12:50 Humalog SUB-Q 3 unit [facility] Administration Protocol Insulin Human Lispro 12 unit 11/20/18 22:00 11/22/18 12:50 Humalog SUB-Q 12 unit [facility] Administration Lisinopril 40 mg 11/21/18 10:00 11/22/18 11:37 Zestril PO 40 mg QDAY [facility] Administration Loratadine 10 mg 11/21/18 10:00 11/22/18 11:37 Claritin PO 10 mg DAILY ALEJANDRA Administration Morphine Sulfate 2 mg 11/20/18 16:17 11/22/18 01:06 Morphine IV 2 mg Q4H PRN Administration Pain, Moderate (4-6) Morphine Sulfate 4 mg 11/22/18 01:53 11/22/18 15:40 Morphine IV 4 mg Q4H PRN Administration Pain , Severe (7-10) Ondansetron HCl 4 mg 11/20/18 16:17 11/21/18 21:17 Zofran IV 4 mg Q8H PRN Administration Nausea And Vomiting Sodium Chloride 10 ml 11/20/18 22:00 11/22/18 11:37 Sodium Chloride Flush Syringe 10 Ml IV 10 ml BID ALEJANDRA Administration Sodium Chloride 10 ml 11/20/18 16:17 11/22/18 02:07 Sodium Chloride Flush Syringe 10 Ml IV 10 ml PRN PRN Administration LINE FLUSH Sodium Chloride 10 ml 11/20/18 16:17 Sodium Chloride Flush Syringe 10 Ml IV PRN PRN LINE FLUSH
[2018-11-22] MEDS: LANTUS SUB-Q SCH (21:30)
[2018-11-23] MEDS: MORPHINE IV PRN ×2 (03:30→09:55)
[2018-11-23] MEDS: HumaLOG SUB-Q SCH ×8 (08:02→21:07)
[2018-11-23] MEDS: LEVAQUIN 500MG/100ML 500 MG/100 ML BAG IV SCH (09:53)
[2018-11-23] MEDS: ZESTRIL PO SCH (09:54)
[2018-11-23] MEDS: PEPCID PO SCH ×2 (09:55→21:06)
[2018-11-23] MEDS: BABY ASPIRIN PO SCH (09:55)
[2018-11-23] MEDS: CLARITIN PO SCH (09:55)
[2018-11-23] MEDS: LASIX IV SCH ×2 (09:55→10:06)
[2018-11-23] MEDS: SODIUM CHLORIDE FLUSH SYRINGE 10 ML IV SCH ×2 (09:56→21:08)
[2018-11-23] MEDS: LANTUS SUB-Q SCH (10:18)
[2018-11-23] MEDS: COLACE PO SCH ×2 (11:02→21:06)
--- NOTE | 2018-11-23 11:58 | Consultation ---
History of Present Illness - Reason for Consult Consult date: 11/23/18 - History of Present Illness New to our service Ms. Sethi is a 38 y/o female with a history significant for [place] s/p PCI of LAD in 2016 at [facility], heart failure, ? paroxysmal atrial fibrillation, hypertension, diabetes, hyperlipidemia, GERD and anxiety who presented to the ED with chest pain that began the day before while running errands. She also endorses right-sided upper abdominal pain that radiates to her chest. EKG negative for STEMI, troponins negative x3 and CTA negative for PE. On examination, she notes that the pain is reproducible upon palpation. A pharmacologic MPI stress test on 08/03/18 was negative for ischemia and infarction. stone surgery in past - [facility] (cysto, stent, etc) abd soft NEIL 1.6 cm rt kidney stone A/p kidney stone on US increased BMI needs CTAP uncontrolled DIABETES Past History Past Medical History: acute GA, CAD, diabetes, heart failure, hypertension, other ([place], Nephrolithiasis, Obesity Hypoventilation Syndrome) Past Surgical History: Other (Cardiac Stent, Renal stent) Social history: single. denies: smoking, alcohol abuse, prescription drug abuse Family history: diabetes, hypertension Medications and Allergies Allergies Allergy/AdvReac Type Severity Reaction Status Date / Time azithromycin [From Zithromax] Allergy Swelling Verified 11/20/18 12:27 diphenhydramine Allergy Angioedema Verified 11/20/18 12:27 [From Benadryl] ketorolac [From Toradol] Allergy Angioedema Verified 11/20/18 12:27 metformin Allergy Rash Verified 11/20/18 12:27 naproxen Allergy Hives Verified 11/20/18 12:27 nonoxynol 9 Allergy Swelling Verified 11/20/18 12:27 [From [place] Plus Spermicidal Jelly] Home Medications Medication Instructions Recorded Confirmed Last Taken Type Insulin Glargine,Hum.rec.anlog 80 units SUB-Q QHS 01/27/18 11/20/18 08/10/18 History [Maycol Murphy U-100] Lisinopril [Zestril] 40 mg PO QDAY 01/27/18 11/20/18 08/10/18 History Aspirin [Aspirin BABY CHEW TAB] 81 mg PO QDAY tab.chew 02/22/18 11/20/18 08/10/18 Rx Furosemide [Lasix TAB] 40 mg PO QDAY 08/11/18 11/20/18 08/10/18 History Insulin Glulisine [Apidra Solostar] 12 unit SQ QID 11/20/18 11/20/18 Unknown History Loratadine 10 mg PO DAILY 11/20/18 11/20/18 Unknown History Active Meds: Active Medications Acetaminophen (Tylenol) 650 mg PO Q4H PRN PRN Reason: Pain MILD(1-3)/Fever >100.5/HOOK Last Admin: 11/21/18 21:16 Dose: 650 mg Documented by: Albuterol (Proventil) 2.5 mg IH Q4HRT PRN PRN Reason: Shortness Of Breath Aspirin (Baby Aspirin) 81 mg PO QDAY [facility] Last Admin: 11/23/18 09:55 Dose: 81 mg Documented by: Dextrose (D50w (25gm) Syringe) 50 ml IV PRN PRN PRN Reason: Hypoglycemia Docusate Sodium (Colace) 100 mg PO BID [facility] Last Admin: 11/23/18 11:02 Dose: 100 mg Documented by: Famotidine (Pepcid) 20 mg PO BID [facility] Last Admin: 11/23/18 09:55 Dose: 20 mg Documented by: Furosemide (Lasix) 40 mg IV QDAY [facility] Last Admin: 11/23/18 10:06 Dose: Not Given Documented by: Levofloxacin/Dextrose (Levaquin 500mg/100ml) 500 mg in 100 mls @ 100 mls/hr IV Q24HR [facility]; Protocol Last Admin: 11/23/18 09:53 Dose: 100 mls/hr Documented by: Insulin Glargine (Lantus) 40 units SUB-Q BID [facility] Last Admin: 11/23/18 10:18 Dose: 40 units Documented by: Insulin Human Lispro (Humalog) 0 unit SUB-Q [facility]; Protocol Last Admin: 11/23/18 08:02 Dose: 2 unit Documented by: Insulin Human Lispro (Humalog) 12 unit SUB-Q [facility] Last Admin: 11/23/18 08:02 Dose: 12 unit Documented by: Lisinopril (Zestril) 40 mg PO QDAY [facility] Last Admin: 11/23/18 09:54 Dose: 40 mg Documented by: Loratadine (Claritin) 10 mg PO DAILY [facility] Last Admin: 11/23/18 09:55 Dose: 10 mg Documented by: Morphine Sulfate (Morphine) 2 mg IV Q4H PRN PRN Reason: Pain, Moderate (4-6) Last Admin: 11/22/18 01:06 Dose: 2 mg Documented by: Morphine Sulfate (Morphine) 4 mg IV Q4H PRN PRN Reason: Pain , Severe (7-10) Last Admin: 11/23/18 09:55 Dose: 4 mg Documented by: Ondansetron HCl (Zofran) 4 mg IV Q8H PRN PRN Reason: Nausea And Vomiting Last Admin: 11/21/18 21:17 Dose: 4 mg Documented by: Oxycodone/Acetaminophen (Percocet 5/325) 2 tab PO Q6H PRN PRN Reason: Pain, Moderate (4-6) Sodium Chloride (Sodium Chloride Flush Syringe 10 Ml) 10 ml IV BID [facility] Last Admin: 11/23/18 09:56 Dose: 10 ml Documented by: Sodium Chloride (Sodium Chloride Flush Syringe 10 Ml) 10 ml IV PRN PRN PRN Reason: LINE FLUSH Last Admin: 11/22/18 02:07 Dose: 10 ml Documented by: Sodium Chloride (Sodium Chloride Flush Syringe 10 Ml) 10 ml IV PRN PRN PRN Reason: LINE FLUSH Exam - Constitutional Vitals: Temp Pulse Resp BP Pulse Ox 98.2 F 91 H 20 130/79 91 11/23/18 08:14 11/23/18 09:54 11/23/18 10:00 11/23/18 09:54 11/23/18 10:00 Results - Labs CBC & Chem 7: 11/21/18 04:56 11/21/18 04:56 Labs: Abnormal lab results 11/22/18 11/22/18 11/22/18 Range/Units 15:50 17:19 20:54 POC Glucose 236 H 193 H 277 H (70-105) 11/23/18 11/23/18 Range/Units 07:16 11:28 POC Glucose 192 H 223 H (70-105)
[2018-11-23] MEDS: PERCOCET 5/325 PO PRN ×3 (12:45→23:57)
[2018-11-23] MEDS ORDERED: LANTUS SUB-Q SCH (15:54)
--- NOTE | 2018-11-23 15:58 | Progress Note ---
Assessment and Plan Assessment and plan: Navdeep is a 38 y/o female with a history significant for [place] s/p PCI of LAD in 2016 at [facility], heart failure, ? paroxysmal atrial fibrillation, hypertension, diabetes, hyperlipidemia, GERD and anxiety who presented to the ED with chest pain that began the day before while running errands. She also endorses right-sided upper abdominal pain that radiates to her chest. EKG negative for STEMI, troponins negative x3 and CTA negative for PE. On examination, she notes that the pain is reproducible upon palpation. A pharmacologic MPI stress test on 08/03/18 was negative for ischemia and infarcti on. UTI. Start levaquin. check urine cultures Costochondritis. Pain control and anti-inflammatory Chest pain. As above. EKG negative for STEMI, troponins negative x3 and CTA negative for PE. CAD. Cont palvix and ECASA GERD. PPI HTN. Resume antihypertensives Cardiomyopathy Paroxysmal afib. now NSR Uncontrolled diabetes mellitus; adjust insulin Right flank pain. US shows no evidence of hydrnephrosis. Patient still complaining pain and history of stent and cystoscopy, after consult for urology and order CT abdomen and pelvis History Interval history: Patient was seen and developed this morning, patient's complaining right flank a nd chest pain Hospitalist Physical - Physical exam Narrative exam: Not in cardiopulmonary distress. The patient is morbidly obese. Vital signs as documented. Head exam is unremarkable. No scleral icterus . Neck is without jugular venous distension, thyromegaly, or carotid bruits. Lungs are clear to auscultation. Cardiac exam reveals regular rate and Rhythm. First and second heart sounds normal. No murmurs, rubs or gallops. Abdominal exam reveals normal bowel sounds, no masses, no organomegaly and no aortic enlargement. Extremities are nonedematous and both femoral and pedal pulses are normal. CAREER ADVISOR: Alert and oriented 3. No focal weakness. - Constitutional Vitals: Temp Pulse Resp BP Pulse Ox 98.2 F 91 H 20 132/76 95 11/23/18 12:05 11/23/18 12:05 11/23/18 12:45 11/23/18 12:05 11/23/18 12:05 General appearance: Present: no acute distress Results - Labs CBC & Chem 7: 11/21/18 04:56 11/21/18 04:56 Labs: Laboratory Last Values WBC 8.6 K/mm3 (4.5-11.0) 11/21/18 04:56 RBC 4.08 M/mm3 (3.65-5.03) 11/21/18 04:56 Hgb 12.9 gm/dl (10.1-14.3) 11/21/18 04:56 Hct 37.4 % (30.3-42.9) 11/21/18 04:56 MCV 92 fl (79-97) 11/21/18 04:56 MCH 32 pg (28-32) 11/21/18 04:56 MCHC 34 % (30-34) 11/21/18 04:56 RDW 13.7 % (13.2-15.2) 11/21/18 04:56 Plt Count 189 K/mm3 (140-440) 11/21/18 04:56 Lymph % (Auto) 22.1 % (13.4-35.0) 11/21/18 04:56 [place] % (Auto) 8.0 % (0.0-7.3) H 11/21/18 04:56 Eos % (Auto) 2.9 % (0.0-4.3) 11/21/18 04:56 Baso % (Auto) 0.8 % (0.0-1.8) 11/21/18 04:56 Lymph # 1.9 K/mm3 (1.2-5.4) 11/21/18 04:56 [place] # 0.7 K/mm3 (0.0-0.8) 11/21/18 04:56 Eos # 0.3 K/mm3 (0.0-0.4) 11/21/18 04:56 Baso # 0.1 K/mm3 (0.0-0.1) 11/21/18 04:56 Seg Neutrophils % 66.2 % (40.0-70.0) 11/21/18 04:56 Seg Neutrophils # 5.7 K/mm3 (1.8-7.7) 11/21/18 04:56 217.94 ng/mlDDU (0-234) 11/20/18 16:49 Sodium 133 mmol/L (137-145) L 11/21/18 04:56 Potassium 4.7 mmol/L (3.6-5.0) 11/21/18 04:56 Chloride 98.4 mmol/L (98-107) 11/21/18 04:56 Carbon Dioxide 23 mmol/L (22-30) 11/21/18 04:56 16 mmol/L 11/21/18 04:56 BUN 11 mg/dL (7-17) 11/21/18 04:56 0.7 mg/dL (0.7-1.2) 11/21/18 04:56 Estimated GFR > 60 ml/min 11/21/18 04:56 16 % 11/21/18 04:56 Glucose 243 mg/dL (65-100) H 11/21/18 04:56 POC Glucose 223 (70-105) H 11/23/18 11:28 10.2 % (4-6) H 11/20/18 16:49 Calcium 8.6 mg/dL (8.4-10.2) 11/21/18 04:56 Magnesium 1.90 mg/dL (1.7-2.3) 11/21/18 07:02 < 0.20 mg/dL (0.1-1.2) 11/21/18 04:56 AST 29 units/L (5-40) 11/21/18 04:56 ALT 28 units/L (7-56) 11/21/18 04:56 62 units/L (35-129) 11/21/18 04:56 < 0.010 ng/mL (0.00-0.029) 11/20/18 22:53 NT-Pro-B Natriuret Pep 155.6 pg/mL (0-450) 11/20/18 16:49 6.9 g/dL (6.3-8.2) 11/21/18 04:56 3.5 g/dL (3.9-5) L 11/21/18 04:56 1.0 % 11/21/18 04:56 Triglycerides 283 mg/dL (2-149) H 11/20/18 16:49 Cholesterol 256 mg/dL (50-199) H 11/20/18 16:49 203 mg/dL (50-130) H 11/20/18 16:49 40 mg/dL (40-59) 11/20/18 16:49 6.40 % 11/20/18 16:49 TSH 2.740 mlU/mL (0.270-4.200) 11/21/18 07:02 Free T4 0.81 ng/dL (0.76-1.46) 11/21/18 07:02 HCG, Qual Negative (Negative) 11/20/18 19:12 Yellow (Yellow) 11/21/18 22:36 Slightly-cloudy (Clear) 11/21/18 22:36 6.0 (5.0-7.0) 11/21/18 22:36 Ur Specific [place] 1.022 (1.003-1.030) 11/21/18 22:36 <15 mg/dl mg/dL (Negative) 11/21/18 22:36 >=500 mg/dL (Negative) 11/21/18 22:36 Neg mg/dL (Negative) 11/21/18 22:36 Sm (Negative) 11/21/18 22:36 Neg (Negative) 11/21/18 22:36 Neg (Negative) 11/21/18 22:36 < 2.0 mg/dL (<2.0) 11/21/18 22:36 Ur Leukocyte Esterase Mod (Negative) 11/21/18 22:36 28.0 /HPF (0.0-6.0) H 11/21/18 22:36 6.0 /HPF (0.0-6.0) 11/21/18 22:36 U Epithel Cells (Auto) 10.0 /HPF (0-13.0) 11/21/18 22:36 1+ /HPF (Negative) 11/21/18 22:36 Few /HPF 11/21/18 22:36 Active Medications - Current Medications Current Medications: Generic Name Dose Route Start Last Admin Trade Name Freq PRN Reason Stop Dose Admin Acetaminophen 650 mg 11/20/18 16:17 11/21/18 21:16 Tylenol PO 650 mg Q4H PRN Administration Pain MILD(1-3)/Fever >100.5/HOOK Albuterol 2.5 mg 11/20/18 16:17 Proventil IH Q4HRT PRN Shortness Of Breath Aspirin 81 mg 11/21/18 10:00 11/23/18 09:55 Baby Aspirin PO 81 mg QDAY ALEJANDRA Administration Dextrose 50 ml 11/20/18 16:22 D50w (25gm) Syringe IV PRN PRN Hypoglycemia Docusate Sodium 100 mg 11/23/18 11:00 11/23/18 11:02 Colace PO 100 mg BID ALEJANDRA Administration Famotidine 20 mg 11/20/18 22:00 11/23/18 09:55 Pepcid PO 20 mg BID ALEJANDRA Administration Furosemide 40 mg 11/21/18 10:00 11/23/18 10:06 Lasix IV Not Given QDAY ALEJANDRA Levofloxacin/Dextrose 500 mg in 100 mls @ 100 mls/hr 11/23/18 10:00 11/23/18 09:53 Levaquin 500mg/100ml IV 100 mls/hr Q24HR [facility] Administration Protocol Insulin Glargine 45 units 11/23/18 15:54 Lantus SUB-Q BID ALEJANDRA Insulin Human Lispro 0 unit 11/20/18 16:30 11/23/18 12:44 Humalog SUB-Q 3 unit [facility] Administration Protocol Insulin Human Lispro 12 unit 11/20/18 22:00 11/23/18 12:44 Humalog SUB-Q 12 unit [facility] Administration Lisinopril 40 mg 11/21/18 10:00 11/23/18 09:54 Zestril PO 40 mg QDAY [facility] Administration Loratadine 10 mg 11/21/18 10:00 11/23/18 09:55 Claritin PO 10 mg DAILY [facility] Administration Morphine Sulfate 2 mg 11/20/18 16:17 11/22/18 01:06 Morphine IV 2 mg Q4H PRN Administration Pain, Moderate (4-6) Morphine Sulfate 4 mg 11/22/18 01:53 11/23/18 09:55 Morphine IV 4 mg Q4H PRN Administration Pain , Severe (7-10) Ondansetron HCl 4 mg 11/20/18 16:17 11/21/18 21:17 Zofran IV 4 mg Q8H PRN Administration Nausea And Vomiting Oxycodone/Acetaminophen 2 tab 11/23/18 10:54 11/23/18 12:45 Percocet 5/325 PO 1 tab Q6H PRN Administration Pain, Moderate (4-6) Sodium Chloride 10 ml 11/20/18 22:00 11/23/18 09:56 Sodium Chloride Flush Syringe 10 Ml IV 10 ml BID ALEJANDRA Administration Sodium Chloride 10 ml 11/20/18 16:17 11/22/18 02:07 Sodium Chloride Flush Syringe 10 Ml IV 10 ml PRN PRN Administration LINE FLUSH Sodium Chloride 10 ml 11/20/18 16:17 Sodium Chloride Flush Syringe 10 Ml IV PRN PRN LINE FLUSH
--- NOTE | 2018-11-23 16:17 | Cat Scan Report ---
CT ABDOMEN AND PELVIS WITHOUT CONTRAST HISTORY: KIDNEY STONE. COMPARISON: CT abdomen and pelvis with contrast dated 11/20/2018 TECHNIQUE: CT images of the abdomen and pelvis were obtained without administration of intravenous co ntrast. All CT scans at this location are performed using CT dose reduction for ALARA by means of au tomated exposure control. FINDINGS: Lungs/bones: Normal Abdomen/pelvis: Both kidneys are normal size, contour and position. Bilateral renal calyceal stones are identified. There are approximately 7 stones in the right kidney measuring up to 4 mm. There are approximately 6 stones in the left kidney measuring up to 3 mm. No evidence for renal cystic disease, ureteral stone or hydronephrosis. The bladder is unremarkable. The liver, biliary system, pancreas, spleen, adrenal glands, aorta, bowel loops and appendix are with in normal limits. The uterus and adnexa are unremarkable. No evidence for ascites, acute inflammation or adenopathy. IMPRESSION: 1. Bilateral nephrolithiasis as described. No ureteral stones or hydronephrosis is identified. Signer Name: Yung Heard Jr, MD Signed: 11/23/2018 4:12 PM Workstation Name: [id number]
[2018-11-24] MEDS: PERCOCET 5/325 PO PRN (07:53)
[2018-11-24] MEDS: HumaLOG SUB-Q SCH ×4 (08:53→12:13)
[2018-11-24] MEDS ORDERED: LANTUS SUB-Q SCH (09:30)
[2018-11-24] MEDS: PEPCID PO SCH (10:43)
[2018-11-24] MEDS: CLARITIN PO SCH (10:43)
[2018-11-24] MEDS: BABY ASPIRIN PO SCH (10:43)
[2018-11-24] MEDS: LEVAQUIN 500MG/100ML 500 MG/100 ML BAG IV SCH (10:43)
[2018-11-24] MEDS: COLACE PO SCH (10:43)
--- NOTE | 2018-11-24 10:59 | Discharge Summary ---
Providers - Providers Date of Admission: 11/20/18 16:17 Attending physician: KAYLEE JOHNSON MD 11/20/18 Consult to Cardiac Rehabilitation [CONS] Routine Reason For Exam: Phase I 11/20/18 16:17 Consult to Physician [CONS] Routine Comment: Consulting Provider: BLAS MACIEL Physician Instructions: Reason For Exam: chf/angina 11/23/18 10:43 Consult to Physician [CONS] Routine Comment: Consulting Provider: BERNICE FLORES Physician Instructions: Reason For Exam: multiple right renal caliculi Primary care physician: PAOLA BENDER Hospitalization Reason for admission: abdominal/chest pain Condition: Stable Pertinent studies: Stress test Renal u/s CT abdomen and pelvis Hospital course: 38 YO Female with HTN, NC, CHF, DM, Nephrolithiasis, CAD S/P LAD Stent Placement, MO, Obesity Hypoventilation presents to ED for evaluation. Pt states that she has experienced dizzines, headache, and pain in her chest over the past 1 day with persistent symptoms over the same time frame. Pt states that her pain is 5/10, crushing in nature, relieved with nitro, worsened with exertion, relieved with rest, associated with shortness of breath. Pt also acknowledges decreased exercise tolerance, dypsnea on exertion, and dypsnea at rest. Pt denies prolonged travel/immobility, unilateral leg swelling, calf pain, productive cough, hemoptysis, skin rash or recent ill contacts. Pt transported to [facility] via private vehicle. Pt seen and evaluated in ED and found to have symptoms consistent with Angina as well as CHF Decompensation. Pt admitted to telemetry. Cardiology team consulted in ED. Prior admission on 08/11/18 reviewed. All listed medication reconciled at time of admission.She also endorses right- sided upper abdominal pain that radiates to her chest. EKG negative for STEMI, troponins negative x3 and CTA negative for PE. On examination, she notes that the pain is reproducible upon palpation. A pharmacologic MPI stress test on 08/03/18 was negative for ischemia and infarction. Patient is on Levaquin, she is complaining she had candidiasis and Diflucan is given. Costochondritis and control. CAD;Cont palvix and ASA GERD continue PPI HTN continue antihypertensives Cardiomyopathy continue home medication Uncontrolled diabetes mellitus; continue insulin Right flank pain; US shows no evidence of hydrnephrosis. Patient still complaining pain and history of stent and cystoscopy. Urology consulted and CT abdomen and pelvis was done and significant for multiple 3-4 mm renal calculi. Urology doesn't think it is the source of pain. Patient discharged home, advised to follow up with primary care physician. Patient was hemodynamically stable at the time of discharge. Patient advised about weight loss and she is working on it and already lost 80 pounds. Disposition: DC-01 TO HOME OR SELFCARE Time spent for discharge: 34 minutes - Discharge Diagnoses (1) Angina at rest Status: Acute (2) Chest pain Status: Acute (3) Nephrolithiasis Status: Acute (4) Obesity Status: Chronic Qualifiers: Body mass index: BMI 45.0-49.9 (5) CAD (coronary artery disease) Status: Acute (6) Hyperlipidemia Status: Acute (7) Diabetes Status: Chronic (8) GERD (gastroesophageal reflux disease) Status: Chronic Qualifiers: Esophagitis presence: with esophagitis Qualified Code(s): K21.0 - Gastro- esophageal reflux disease with esophagitis (9) Hypertension Status: Chronic Qualifiers: Hypertension type: essential hypertension Qualified Code(s): I10 - Essential (primary) hypertension Core Measure Documentation - Palliative Care Palliative Care/ Comfort Measures: Not Applicable - Core Measures Any of the following diagnoses?: none Exam - Physical Exam Narrative exam: Not in cardiopulmonary distress. The patient is morbidly obese. Vital signs as documented. Head exam is unremarkable. No scleral icterus . Neck is without jugular venous distension, thyromegaly, or carotid bruits. Lungs are clear to auscultation. Cardiac exam reveals regular rate and Rhythm. First and second heart sounds normal. No murmurs, rubs or gallops. Abdominal exam reveals normal bowel sounds, no masses, no organomegaly and no aortic enlargement. Extremities are nonedematous and both femoral and pedal pulses are normal. BARIATRIC PHYSICIAN: Alert and oriented 3. No focal weakness. - Constitutional Vitals: Temp Pulse Resp BP Pulse Ox 98.0 F 83 21 85/43 97 11/24/18 03:31 11/24/18 04:00 11/24/18 08:53 11/24/18 03:31 11/24/18 03:31 Plan Activity: no restrictions Weight Bearing Status: Full Weight Bearing Diet: low salt, diabetic Follow up with: PRIMARY CAREMD [Referring] - 3-5 Days MEKHI HUMPHRIES MD [Staff Physician] - 14 Days GAL CAPELLAN MD [Staff Physician] - 7 Days Forms: Work/School Release Form Prescriptions: Fluconazole [Diflucan TAB] 150 mg PO ONCE #2 tablet levoFLOXacin [Levaquin TAB] 500 mg PO QDAY #3 tablet Oxycodone HCl/Acetaminophen [Percocet 10/325 mg] 1 each PO Q6HR PRN #12 tablet PRN Reason: Pain
[2018-11-24 11:15] VITALS: BP 112/74
--- NOTE | 2018-11-24 12:48 | Progress Note ---
Subjective Date of service: 11/24/18 Interval history: New to our service Ms. Sethi is a 38 y/o female with a history significant for [place] s/p PCI of LAD in 2016 at [facility], heart failure, ? paroxysmal atrial fibrillation, hypertension, diabetes, hyperlipidemia, GERD and anxiety who presented to the ED with chest pain that began the day before while running errands. She also endorses right-sided upper abdominal pain that radiates to her chest. EKG negative for STEMI, troponins negative x3 and CTA negative for PE. On examination, she notes that the pain is reproducible upon palpation. A pharmacologic MPI stress test on 08/03/18 was negative for ischemia and infarction. stone surgery in past - [facility] (cysto, stent, etc) CTAP-- several small kidney stones---largest 4mm----no hydronephrosis abd soft NEIL 1.6 cm rt kidney stone A/p kidney stone---no hydro---not the cause of pain pt has pain down the back of leg---suggest sciatic nerve - needs spine eval will sign off increased BMI uncontrolled DIABETES Objective - Constitutional Vitals: Vital Signs - 12hr 11/24/18 11/24/18 11/24/18 03:31 04:00 07:40 Temperature 98.0 F 97.9 F Pulse Rate 74 83 95 H Respiratory 20 18 Rate Respiratory Rate [Chest] Blood Pressure 85/43 112/74 O2 Sat by Pulse 97 99 Oximetry 11/24/18 11/24/18 11/24/18 07:53 08:53 10:00 Temperature Pulse Rate Respiratory 20 21 Rate Respiratory Rate [Chest] Blood Pressure O2 Sat by Pulse 98 Oximetry 11/24/18 11/24/18 11:07 11:13 Temperature Pulse Rate 86 Respiratory Rate Respiratory 20 Rate [Chest] Blood Pressure O2 Sat by Pulse Oximetry - Labs CBC & Chem 7: 11/21/18 04:56 11/21/18 04:56 Labs: Abnormal lab results 11/23/18 11/23/18 11/24/18 Range/Units 17:32 20:35 07:46 POC Glucose 239 H 222 H 202 H (70-105) 11/24/18 Range/Units 11:10 POC Glucose 267 H (70-105) Medications & Allergies - Medications Allergies/Adverse Reactions: Allergies azithromycin [From Zithromax] Allergy (Verified 11/20/18 12:27) Swelling diphenhydramine [From Benadryl] Allergy (Verified 11/20/18 12:27) Angioedema ketorolac [From Toradol] Allergy (Verified 11/20/18 12:27) Angioedema metformin Allergy (Verified 11/20/18 12:27) Rash naproxen Allergy (Verified 11/20/18 12:27) Hives nonoxynol 9 [From [place] Plus Spermicidal Jelly] Allergy (Verified 11/20/18 12:27) Swelling Home Medications: Home Medications Medication Instructions Recorded Confirmed Last Taken Type Insulin Glargine,Hum.rec.anlog 80 units SUB-Q QHS 01/27/18 11/20/18 08/10/18 History [Basaglar Kwikpen U-100] Lisinopril [Zestril] 40 mg PO QDAY 01/27/18 11/20/18 08/10/18 History Aspirin [Aspirin BABY CHEW TAB] 81 mg PO QDAY tab.chew 02/22/18 11/20/18 08/10/18 Rx Furosemide [Lasix TAB] 40 mg PO QDAY 08/11/18 11/20/18 08/10/18 History Insulin Glulisine [Apidra Solostar] 12 unit SQ QID 11/20/18 11/20/18 Unknown History Loratadine 10 mg PO DAILY 11/20/18 11/20/18 Unknown History Fluconazole [Diflucan TAB] 150 mg PO ONCE #2 tablet 11/24/18 Unknown Rx Oxycodone HCl/Acetaminophen 1 each PO Q6HR PRN #12 tablet 11/24/18 Unknown Rx [Percocet 10/325 mg] levoFLOXacin [Levaquin TAB] 500 mg PO QDAY #3 tablet 11/24/18 Unknown Rx Active Medications: Generic Name Dose Route Start Last Admin Trade Name Freq PRN Reason Stop Dose Admin Acetaminophen 650 mg 11/20/18 16:17 11/21/18 21:16 Tylenol PO 650 mg Q4H PRN Administration Pain MILD(1-3)/Fever >100.5/HOOK Albuterol 2.5 mg 11/20/18 16:17 Proventil IH Q4HRT PRN Shortness Of Breath Aspirin 81 mg 11/21/18 10:00 11/24/18 10:43 Baby Aspirin PO 81 mg QDAY ALEJADNRA Administration Dextrose 50 ml 11/20/18 16:22 D50w (25gm) Syringe IV PRN PRN Hypoglycemia Docusate Sodium 100 mg 11/23/18 11:00 11/24/18 10:43 Colace PO 100 mg BID ALEJANDRA Administration Famotidine 20 mg 11/20/18 22:00 11/24/18 10:43 Pepcid PO 20 mg BID ALEJANDRA Administration Levofloxacin/Dextrose 500 mg in 100 mls @ 100 mls/hr 11/23/18 10:00 11/24/18 10:43 Levaquin 500mg/100ml IV 100 mls/hr Q24HR ALEJANDRA Administration Protocol Insulin Glargine 50 units 11/24/18 09:30 Lantus SUB-Q BIDDIAB ALEJANDRA Insulin Human Lispro 0 unit 11/20/18 16:30 11/24/18 08:54 Humalog SUB-Q 3 unit ACHS ALEJANDRA Administration Protocol Insulin Human Lispro 12 unit 11/20/18 22:00 11/24/18 08:53 Humalog SUB-Q 12 unit ACHS ALEJANDRA Administration Loratadine 10 mg 11/21/18 10:00 11/24/18 10:43 Claritin PO 10 mg DAILY ALEJANDRA Administration Morphine Sulfate 2 mg 11/20/18 16:17 11/22/18 01:06 Morphine IV 2 mg Q4H PRN Administration Pain, Moderate (4-6) Morphine Sulfate 4 mg 11/22/18 01:53 11/23/18 09:55 Morphine IV 4 mg Q4H PRN Administration Pain , Severe (7-10) Ondansetron HCl 4 mg 11/20/18 16:17 11/21/18 21:17 Zofran IV 4 mg Q8H PRN Administration Nausea And Vomiting Oxycodone/Acetaminophen 2 tab 11/23/18 10:54 11/24/18 07:53 Percocet 5/325 PO 2 tab Q6H PRN Administration Pain, Moderate (4-6) Sodium Chloride 10 ml 11/20/18 22:00 11/23/18 21:08 Sodium Chloride Flush Syringe 10 Ml IV 10 ml BID ALEJANDRA Administration Sodium Chloride 10 ml 11/20/18 16:17 11/22/18 02:07 Sodium Chloride Flush Syringe 10 Ml IV 10 ml PRN PRN Administration LINE FLUSH Sodium Chloride 10 ml 11/20/18 16:17 Sodium Chloride Flush Syringe 10 Ml IV PRN PRN LINE FLUSH
== END 2018-11-24 14:16 | disposition home or self-care (01) | DRG 302 ==
LOC: ED 12:26 → 4A 16:17
PROVIDERS: ADMIT Internal Medicine; ATTEND Internal Medicine
DX: I25.119 Atherosclerotic heart disease of native coronary artery with unspecified angina pectoris (principal); I50.23 Acute on chronic systolic (congestive) heart failure; M94.0 Chondrocostal junction syndrome [Tietze]; I11.0 Hypertensive heart disease with heart failure; N39.0 Urinary tract infection, site not specified; Z68.42 Body mass index [BMI] 45.0-49.9, adult; E66.2 Morbid (severe) obesity with alveolar hypoventilation; E87.2 Acidosis; E11.9 Type 2 diabetes mellitus without complications; B37.9 Candidiasis, unspecified; I42.9 Cardiomyopathy, unspecified; N20.0 Calculus of kidney; K21.0 Gastro-esophageal reflux disease with esophagitis; I44.7 Left bundle-branch block, unspecified; I48.0 Paroxysmal atrial fibrillation; Z82.49 Family history of ischemic heart disease and other diseases of the circulatory system; I25.2 Old myocardial infarction; Z95.5 Presence of coronary angioplasty implant and graft; Z83.3 Family history of diabetes mellitus; Z79.82 Long term (current) use of aspirin; Z79.899 Other long term (current) drug therapy
CPT/HCPCS: 36415; 71046; 71275; 74176; 76775; 80048; 80053; 80061; 81001; 82962; 83036; 83735; 83880; 84439; 84443; 84484; 84703; 85025; 85379; 87086; 93005; 93010; 93306; 96374; 96375; G0378; J1815; J1940; J1956; J2270; J2405; J3010; Q9967

== ENCOUNTER 2018-12-03 04:21 | Emergency (ER) | payer OTHER ==
[2018-12-03] MEDS ORDERED: ASPIRIN PO ONE (04:46)
[2018-12-03 05:17] LABS: Basophils # (Auto) 0.1 K/mm3 (0.0-0.1); Basophils % (Auto) 0.6 % (0.0-1.8); Eosinophils # (Auto) 0.3 K/mm3 (0.0-0.4); Eosinophils % (Auto) 2.7 % (0.0-4.3); Hematocrit 39.1 % (30.3-42.9); Hemoglobin 13.2 gm/dl (10.1-14.3); Lymphocytes # (Auto) 2.6 K/mm3 (1.2-5.4); Lymphocytes % (Auto) 25.1 % (13.4-35.0); Mean Corpuscular HGB Conc 34 % (30-34); Mean Corpuscular Volume 92 fl (79-97); Monocytes # (Auto) 0.8 K/mm3 (0.0-0.8); Monocytes % (Auto) 7.7 % (0.0-7.3); Platelet Count 197 K/mm3 (140-440); Red Blood Count 4.23 M/mm3 (3.65-5.03); Red Cell Distribution Width 13.8 % (13.2-15.2)
--- NOTE | 2018-12-03 05:28 | XRay Report ---
CHEST 1 VIEW INDICATION: Chest Pain. COMPARISON: 11/20/2018. FINDINGS: Support devices: None. Heart: Stable. Lungs/Pleura: No acute pulmonary or pleural findings. IMPRESSION: 1. No significant change. Signer Name: Zane Osei MD Signed: 12/03/2018 5:23 AM Workstation Name: [id number]
[2018-12-03 05:38] LABS: BUN/Creatinine Ratio 23; Blood Urea Nitrogen 18 mg/dL (7-17); Calcium 8.9 mg/dL (8.4-10.2); Hemolysis Index 7
[2018-12-03] MEDS ORDERED: NORCO 5/325 PO ONE (06:32)
--- NOTE | 2018-12-03 07:05 | Emergency Department Report ---
ED Chest Pain HPI - General Chief Complaint: Chest Pain Stated Complaint: CHEST PAIN Time Seen by Provider: 12/03/18 06:10 Source: patient, EMS Mode of arrival: Stretcher Limitations: No Limitations - History of Present Illness Initial Comments: 38 year old female with a past medical history CHF, GERD, diabetes, CAD with stent in 2016, hypertension, obesity, and renal stones presents to the hospital complaints of chest pain that started at 2 AM. Patient woke up from her sleep with the pain. Pain described as a gas-like pain but also a sharp component radiating to the left shoulder. Patient complained of dyspnea and chest pressure when ambulating to the bathroom. Patient took nitroglycerin 2 prior to arrival with minimal improvement. Patient has been compliant with her medications including aspirin. Patient states she was on Plavix 1 year after stent placement and it was discontinued. When she was readmitted to the hospital last month aspirin and Plavix were initiated but she was not discharged on a Plavix prescription. She denies fever, nausea, vomiting, diaphoresis, calf tenderness, leg edema, history of PEs as DVT, or recent travel. Upon previous medical record review patient was admitted here 11/20/2018 until November 24 for c hest pain and ultimately diagnosed with costochondritis. She had negative cardiac enzymes 3, a negative CTA chest for PE performed on November 20, and a CT of the abdomen and pelvis performed on November 23 that was positive for bilateral nephrolithiasis. Patient also had a cardiac cath performed on 08/12/2018 showing a patent LAD stent with EF on the lower limits of normal and no significant CAD. Patient states she also has a history of GERD and takes Zantac and Pepcid intermittently. 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 [facility] - Related Data Home Medications Medication Instructions Recorded Confirmed Last Taken Insulin Glargine,Hum.rec.anlog 80 units SUB-Q QHS 01/27/18 11/20/18 08/10/18 [Basaglfaizan Murphy U-100] Lisinopril [Zestril] 40 mg PO QDAY 01/27/18 11/20/18 08/10/18 Furosemide [Lasix TAB] 40 mg PO QDAY 08/11/18 11/20/18 08/10/18 Insulin Glulisine [Apidra Solostar] 12 unit SQ QID 11/20/18 11/20/18 Unknown Loratadine 10 mg PO DAILY 11/20/18 11/20/18 Unknown Previous Rx's Medication Instructions Recorded Last Taken Type Aspirin [Aspirin BABY CHEW TAB] 81 mg PO QDAY tab.chew 02/22/18 08/10/18 Rx Fluconazole [Diflucan TAB] 150 mg PO ONCE #2 tablet 11/24/18 Unknown Rx Oxycodone HCl/Acetaminophen 1 each PO Q6HR PRN #12 tablet 11/24/18 Unknown Rx [Percocet 10/325 mg] levoFLOXacin [Levaquin TAB] 500 mg PO QDAY #3 tablet 11/24/18 Unknown Rx HYDROcodone/APAP 5-325 [[place] 1 each PO Q6HR PRN #14 tablet 12/03/18 Unknown Rx 5/325] Allergies Allergy/AdvReac Type Severity Reaction Status Date / Time azithromycin [From Zithromax] Allergy Swelling Verified 11/20/18 12:27 diphenhydramine Allergy Angioedema Verified 11/20/18 12:27 [From Benadryl] ketorolac [From Toradol] Allergy Angioedema Verified 11/20/18 12:27 metformin Allergy Rash Verified 11/20/18 12:27 naproxen Allergy Hives Verified 11/20/18 12:27 nonoxynol 9 Allergy Swelling Verified 11/20/18 12:27 [From [place] Plus Spermicidal Jelly] Heart Score - HEART Score History: Slightly suspicious EKG: Non-specific Age: < 45 Risk factors: > 3 risk factors or hx of atherosclerotic disease Troponin: < normal limit HEART Score: 3 ED Review of Systems ROS: Stated complaint: CHEST PAIN Other details as noted in HPI Comment: All other systems reviewed and negative ED Past Medical Hx - Past Medical History Hx Hypertension: Yes Hx Heart Attack/AMI: Yes Hx Congestive Heart Failure: Yes Hx Diabetes: Yes Hx Kidney Stones: Yes (Stents) Additional medical history: Flash pulmonary edema, kidney stents - Surgical History Hx Coronary Stent: Yes Additional Surgical History: C/S, renal stents, Heart stent in the LAD 2 yrs ago - Social History Smoking Status: Current Every Day Smoker Substance Use Type: None - Medications Home Medications: Home Medications Medication Instructions Recorded Confirmed Last Taken Type Insulin Glargine,Hum.rec.anlog 80 units SUB-Q QHS 01/27/18 11/20/18 08/10/18 History [Basaglar Kwikpen U-100] Lisinopril [Zestril] 40 mg PO QDAY 01/27/18 11/20/18 08/10/18 History Aspirin [Aspirin BABY CHEW TAB] 81 mg PO QDAY tab.chew 02/22/18 11/20/18 08/10/18 Rx Furosemide [Lasix TAB] 40 mg PO QDAY 08/11/18 11/20/18 08/10/18 History Insulin Glulisine [Apidra Solostar] 12 unit SQ QID 11/20/18 11/20/18 Unknown History Loratadine 10 mg PO DAILY 11/20/18 11/20/18 Unknown History Fluconazole [Diflucan TAB] 150 mg PO ONCE #2 tablet 11/24/18 Unknown Rx Oxycodone HCl/Acetaminophen 1 each PO Q6HR PRN #12 tablet 11/24/18 Unknown Rx [Percocet 10/325 mg] levoFLOXacin [Levaquin TAB] 500 mg PO QDAY #3 tablet 11/24/18 Unknown Rx HYDROcodone/APAP 5-325 [[place] 1 each PO Q6HR PRN #14 tablet 12/03/18 Unknown Rx 5/325] ED Physical Exam - General Limitations: No Limitations - Other Other exam information: General: No limitations, patient is alert in no acute distress Head exam: Atraumatic, normocephalic Eyes exam: Normal appearance ENT: Moist mucous membrane Neck exam: Normal inspection, full range of motion, no meningismus nontender Respiratory exam: Clear to auscultation bilateral, no wheezes, rales, crackles Cardiovascular: Normal rate and rhythm, tenderness to left lower chest wall with palpation Abdomen: Soft, nondistended, and nontender, with normal bowel sounds, no rebound, or guarding Extremity: Full range of motion normal inspection no deformity, no calf ten derness or edema Back: Normal Inspection, full range of motion, no tenderness Neurologic: Alert, oriented x3, cranial nerves intact, no motor or sensory deficit Psychiatric: normal affect, normal mood Skin: Warm, dry, intact ED Course Vital Signs 12/03/18 12/03/18 12/03/18 04:42 07:04 07:10 Temperature 98.2 F 97.9 F Pulse Rate 89 84 90 Respiratory 19 12 16 Rate Blood Pressure 136/86 123/68 141/94 [Left] O2 Sat by Pulse 98 97 100 Oximetry - Consultations Consultation #1: 12/03/18 07:[address] Babb, agree with repeat trop to r/u cad and to consider d/c if neg. states pt may continue just the asa and plavix is not needed. RACHEL score - Rachel Score Age > 65: (0) No Aspirin use within the Past 7 Days: (1) Yes 3 or more CAD Risk Factors: (1) Yes 2 or more Angina events in past 24 hrs: (0) No Known CAD with more than 50% Stenosis: (0) No Elevated Cardiac Markers: (0) No ST Deviation Greater than 0.5mm: (0) No RACHEL Score: 2 ED Medical Decision Making - Lab Data Result diagrams: 12/03/18 05:01 12/03/18 05:01 Lab Results 12/03/18 12/03/18 12/03/18 Range/Units 05:01 05:01 07:58 WBC 10.3 (4.5-11.0) K/mm3 RBC 4.23 (3.65-5.03) M/mm3 Hgb 13.2 (10.1-14.3) gm/dl Hct 39.1 (30.3-42.9) % MCV 92 (79-97) fl MCH 31 (28-32) pg MCHC 34 (30-34) % RDW 13.8 (13.2-15.2) % Plt Count 197 (140-440) K/mm3 Lymph % (Auto) 25.1 (13.4-35.0) % [place] % (Auto) 7.7 H (0.0-7.3) % Eos % (Auto) 2.7 (0.0-4.3) % Baso % (Auto) 0.6 (0.0-1.8) % Lymph # 2.6 (1.2-5.4) K/mm3 [place] # 0.8 (0.0-0.8) K/mm3 Eos # 0.3 (0.0-0.4) K/mm3 Baso # 0.1 (0.0-0.1) K/mm3 Seg Neutrophils % 63.9 (40.0-70.0) % Seg Neutrophils # 6.6 (1.8-7.7) K/mm3 Sodium 134 L (137-145) mmol/L Potassium 4.0 (3.6-5.0) mmol/L Chloride 102.2 (98-107) mmol/L Carbon Dioxide 19 L (22-30) mmol/L Anion Gap 17 mmol/L BUN 18 H (7-17) mg/dL Creatinine 0.8 (0.7-1.2) mg/dL Estimated GFR > 60 ml/min BUN/Creatinine Ratio 23 % Glucose 292 H (65-100) mg/dL Calcium 8.9 (8.4-10.2) mg/dL Troponin T < 0.010 < 0.010 (0.00-0.029) ng/mL - EKG Data -: EKG Interpreted by Me (LBB) EKG shows normal: sinus rhythm, axis (qrs 21), QRS complexes (qrsd 143), ST-T waves (no stemi) Rate: normal (91 ) - EKG Data When compared to previous EKG there are: no significant change 12/03/18 08:58 Repeat EKG performed at 7:39am show any acute changes persistent left bundle-branch block - Radiology Data Radiology results: report reviewed CHEST 1 VIEW INDICATION: Chest Pain. COMPARISON: 11/20/2018. FINDINGS: Support devices: None. Heart: Stable. Lungs/Pleura: No acute pulmonary or pleural findings. IMPRESSION: 1. No significant change. - Medical Decision Making She has reproducible chest wall pain in the lower sternum and lower left chest wall extending to the epigastric area. 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 She is had some relief after receiving [place] and morphine. Troponin negative 2, EKG unchanged, patient had unremarkable cardiac cath 4 months ago and a negative CT and chest within the last 2 weeks. She does not have any signs of hypoxia in the ED or signs of clinical signs of DVT. She'll be discharged with pain medication and PMD and cardiology follow-up. - Differential Diagnosis UT, unstable angina, costochondritis, GERD, anxiety Critical Care Time: No Critical care attestation.: If time is entered above; I have spent that time in minutes in the direct care of this critically ill patient, excluding procedure time. ED Disposition Clinical Impression: Chest wall pain Disposition: DC-01 TO HOME OR SELFCARE Is pt being admited?: No Does the pt Need Aspirin: No Condition: Stable Instructions: Chest Pain (ED) Additional Instructions: Take the medication as prescribed. Follow up with your doctor or the clinic/doctor provided. Return if symptoms worsen as indicated by your discharge instructions Prescriptions: HYDROcodone/APAP 5-325 [[place] 5/325] 1 each PO Q6HR PRN #14 tablet PRN Reason: Pain Referrals: PAOLA BENDER MD [Primary Care Provider] - 3-5 Days (primary care doctor) [facility] [Provider Group] - 3-5 Days (Freight And Passenger Agent) Forms: Work/School Release Form(ED) Time of Disposition: 09:05
[2018-12-03] MEDS ORDERED: ASPIRIN ONE (07:10)
[2018-12-03] MEDS ORDERED: ALUM-MAG HYDROX-SIMETH 200-200-20MG/5ML PO ONE (08:02)
[2018-12-03] MEDS ORDERED: ZOFRAN IV ONE (08:02)
[2018-12-03] MEDS ORDERED: MORPHINE IV ONE (08:02)
[2018-12-03 09:36] VITALS: BP 130/73
== END 2018-12-03 09:34 | disposition home or self-care (01) ==
LOC: ED 04:21
DX: R07.89 Other chest pain (principal); I11.0 Hypertensive heart disease with heart failure; I50.9 Heart failure, unspecified; I25.2 Old myocardial infarction; K21.9 Gastro-esophageal reflux disease without esophagitis; E11.9 Type 2 diabetes mellitus without complications; I25.810 Atherosclerosis of coronary artery bypass graft(s) without angina pectoris; Z87.442 Personal history of urinary calculi; F17.200 Nicotine dependence, unspecified, uncomplicated; Z88.1 Allergy status to other antibiotic agents; Z88.8 Allergy status to other drugs, medicaments and biological substances; Z79.899 Other long term (current) drug therapy
CPT/HCPCS: 36415; 71045; 80048; 84484; 85025; 93005; 93010; 96374; 96375; 99285; J2270; J2405

== ENCOUNTER 2019-01-07 22:46 | Emergency (ER) | payer OTHER ==
[2019-01-07] MEDS ORDERED: ASPIRIN PO ONE (23:08)
[2019-01-07 23:43] LABS: Basophils % (Auto) 0.4 % (0.0-1.8); Eosinophils # (Auto) 0.2 K/mm3 (0.0-0.4); Eosinophils % (Auto) 1.7 % (0.0-4.3); Hemoglobin 13.6 gm/dl (10.1-14.3); Lymphocytes % (Auto) 25.7 % (13.4-35.0); Mean Corpuscular HGB Conc 33 % (30-34); Mean Corpuscular Volume 89 fl (79-97); Monocytes # (Auto) 0.8 K/mm3 (0.0-0.8); Monocytes % (Auto) 7.1 % (0.0-7.3); Platelet Count 218 K/mm3 (140-440); Red Cell Distribution Width 14.6 % (13.2-15.2)
[2019-01-07 23:57] LABS: BUN/Creatinine Ratio 17; Blood Urea Nitrogen 12 mg/dL (7-17); Calcium 9.3 mg/dL (8.4-10.2); Hemolysis Index 62
--- NOTE | 2019-01-08 02:09 | XRay Report ---
CHEST 1 VIEW INDICATION: Chest Pain. COMPARISON: 12/03/2018 FINDINGS: Support devices: None. Heart: Within normal limits. Lungs/Pleura: No acute air space or interstitial disease. Additional findings: None. IMPRESSION: 1. No acute findings. Signer Name: Kelvin Ortiz MD Signed: 01/08/2019 2:04 AM Workstation Name: [email or web address]
[2019-01-08] MEDS ORDERED: DILAUDID IV ONE ×2 (02:44→04:01)
[2019-01-08] MEDS ORDERED: ZOFRAN IV ONE (02:44)
[2019-01-08] MEDS ORDERED: PEPCID IV ONE (02:44)
[2019-01-08 03:20] LABS: Alanine Aminotransferase 27 units/L (7-56); Albumin 4.1 g/dL (3.9-5)
[2019-01-08 03:23] LABS: Bilirubin,Direct < 0.2 mg/dL (0-0.2)
--- NOTE | 2019-01-08 03:41 | Cat Scan Report ---
CT ABDOMEN AND PELVIS WITHOUT CONTRAST HISTORY: right sided abd pain. Right-sided abdominal pain COMPARISON: CT abdomen/pelvis from 11/23/2018 TECHNIQUE: CT images of the abdomen and pelvis were obtained without administration of intravenous co ntrast. All CT scans at this location are performed using CT dose reduction for ALARA by means of au tomated exposure control. FINDINGS: Lungs/bones: Lung bases are clear. There is DJD in the spine and pelvis with no acute osseous abnorm ality. Abdomen/pelvis: The liver is mildly enlarged no focal mass. The gallbladder, spleen, pancreas, adren als, and proximal GI tract appear unremarkable. There is punctate bilateral nephrolithiasis which is similar to the previous examination. No ureteral stone disease or hydronephrosis. The urinary bladder is collapsed. Reproductive organs are unremarkable except for probable small nabo th[place] cyst near the cervix. No pelvic free fluid. No acute colonic abnormality identified. The append ix and terminal ileum appear normal. IMPRESSION: 1. Nonobstructive nephrolithiasis. Otherwise nothing acute. Signer Name: Kelvin Ortiz MD Signed: 01/08/2019 3:37 AM Workstation Name: [id number]
--- NOTE | 2019-01-08 03:43 | Ultrasound Report ---
LIMITED RUQ ABDOMINAL ULTRASOUND INDICATION: Ruq abd pain. COMPARISON: CT abdomen/pelvis from today. FINDINGS: Pancreas: Visualized portions show no significant abnormality. Abdominal Aorta: No significant abnormality. IVC: No significant abnormality. Liver: The liver measures 16.2 cm in length. Liver is diffusely echogenic with no discrete mass. Nor mal hepatopedal blood flow in the main portal vein. Gallbladder: No significant abnormality. Bile ducts: No significant abnormality. Common bile duct measures 3 mm. Right kidney: No significant abnormality visualized.. Free fluid: None. Additional Findings: None. IMPRESSION: 1. Mildly echogenic liver, most commonly seen with steatosis. Signer Name: Kelvin Ortiz MD Signed: 01/08/2019 3:39 AM Workstation Name: [id number]
[2019-01-08] MEDS ORDERED: CATAPRES PO ONE (04:01)
[2019-01-08] MEDS ORDERED: ASPIRIN ONE (04:11)
[2019-01-08 04:14] LABS: Bilirubin,Urine NEG (Negative); Blood,Urine NEG (Negative); Color,Urine Yellow (Yellow); Mucus,Urine 1+ /HPF; Urobilinogen,Urine < 2.0 mg/dL (<2.0)
--- NOTE | 2019-01-08 04:17 | Emergency Department Report ---
ED Abdominal Pain HPI - General Chief Complaint: Chest Pain Stated Complaint: CHEST PAIN,PAIN ON RIGHT SIDE,NAUSEA Time Seen by Provider: 01/08/19 02:42 Source: patient Mode of arrival: Ambulatory Limitations: No Limitations - History of Present Illness Initial Comments: 38 year old female with a past medical history CHF, diabetes, obesity, CAD with stent, gerd, hypertension, and kidney stones presents to the Hospital complaining of right upper quadrant and epigastric pain radiating to the chest since this a.m. Patient complains of intermittent stabbing sharp pain to the right upper quadrant radiating to the back. Pain is worse with palpation, m ovement, and with by mouth intake. Positive associated nausea and vomiting. No complaints of melena, hematochezia, hematemesis, diarrhea, or fever. He states she has similar pain in past when she was diagnosed with kidney stones and gallbladder sludge. She has not been able to follow up with any specialist. Cardiac cath performed hereon 08/12/2018 showing a patent LAD stent with EF on the lower limits of normal and no significant CAD. Severity scale (0 -10): 8 - Related Data Home Medications Medication Instructions Recorded Confirmed Last Taken Insulin Glargine,Hum.rec.anlog 80 units SUB-Q QHS 01/27/18 11/20/18 08/10/18 [Basaglar Kwikpen U-100] Lisinopril [Zestril] 40 mg PO QDAY 01/27/18 11/20/18 08/10/18 Insulin Glulisine [Apidra Solostar] 12 unit SQ QID 11/20/18 11/20/18 Unknown Loratadine 10 mg PO DAILY 11/20/18 11/20/18 Unknown Previous Rx's Medication Instructions Recorded Last Taken Type Aspirin [Aspirin BABY CHEW TAB] 81 mg PO QDAY tab.chew 02/22/18 08/10/18 Rx Fluconazole [Diflucan TAB] 150 mg PO ONCE #2 tablet 11/24/18 Unknown Rx levoFLOXacin [Levaquin TAB] 500 mg PO QDAY #3 tablet 11/24/18 Unknown Rx Furosemide [Lasix TAB] 40 mg PO QDAY #30 tablet 01/08/19 Unknown Rx Oxycodone HCl/Acetaminophen 1 each PO Q6HR PRN #15 tablet 01/08/19 Unknown Rx [Percocet 10/325 mg] Pantoprazole [Protonix TAB] 20 mg PO QDAY #30 tablet. 01/08/19 Unknown Rx cloNIDine [Catapres] 0.1 mg PO BID #60 tablet 01/08/19 Unknown Rx Allergies Allergy/AdvReac Type Severity Reaction Status Date / Time azithromycin [From Zithromax] Allergy Swelling Verified 11/20/18 12:27 diphenhydramine Allergy Angioedema Verified 11/20/18 12:27 [From Benadryl] ketorolac [From Toradol] Allergy Angioedema Verified 11/20/18 12:27 metformin Allergy Rash Verified 11/20/18 12:27 naproxen Allergy Hives Verified 11/20/18 12:27 nonoxynol 9 Allergy Swelling Verified 11/20/18 12:27 [From [place] Plus Spermicidal Jelly] ED Review of Systems ROS: Stated complaint: CHEST PAIN,PAIN ON RIGHT SIDE,NAUSEA Other details as noted in HPI Comment: All other systems reviewed and negative ED Past Medical Hx - Past Medical History Previous Medical History?: Yes Hx Hypertension: Yes Hx Heart Attack/AMI: Yes Hx Congestive Heart Failure: Yes Hx Diabetes: Yes Hx Kidney Stones: Yes (Stents) Additional medical history: Flash pulmonary edema, kidney stents - Surgical History Past Surgical History?: Yes Hx Coronary Stent: Yes Additional Surgical History: C/S, renal stents, Heart stent in the LAD 2 yrs ago - Social History Smoking Status: Never Smoker Substance Use Type: None - Medications Home Medications: Home Medications Medication Instructions Recorded Confirmed Last Taken Type Insulin Glargine,Hum.rec.anlog 80 units SUB-Q QHS 01/27/18 11/20/18 08/10/18 History [Basaglar Kristineikpen U-100] Lisinopril [Zestril] 40 mg PO QDAY 01/27/18 11/20/18 08/10/18 History Aspirin [Aspirin BABY CHEW TAB] 81 mg PO QDAY tab.chew 02/22/18 11/20/18 08/10/18 Rx Insulin Glulisine [Apidra Solostar] 12 unit SQ QID 11/20/18 11/20/18 Unknown History Loratadine 10 mg PO DAILY 11/20/18 11/20/18 Unknown History Fluconazole [Diflucan TAB] 150 mg PO ONCE #2 tablet 11/24/18 Unknown Rx levoFLOXacin [Levaquin TAB] 500 mg PO QDAY #3 tablet 11/24/18 Unknown Rx Furosemide [Lasix TAB] 40 mg PO QDAY #30 tablet 01/08/19 Unknown Rx Oxycodone HCl/Acetaminophen 1 each PO Q6HR PRN #15 tablet 01/08/19 Unknown Rx [Percocet 10/325 mg] Pantoprazole [Protonix TAB] 20 mg PO QDAY #30 tablet. 01/08/19 Unknown Rx cloNIDine [Catapres] 0.1 mg PO BID #60 tablet 01/08/19 Unknown Rx ED Physical Exam - General Limitations: No Limitations - Other Other exam information: General: No acute distress Eyes: Normal appearance, pupils equal reactive to light, extraocular movements intact ENT: Normal oropharynx Neck: Normal appearance, no C-spine tenderness, no meningismus Chest: Clear to auscultation bilaterally, no wheezes, rales, or crackles Cardiovascular: Regular rate and rhythm Abdomen: Soft, nondistended, right upper quadrant and epigastric tenderness, mild tenderness to right lower quadrant, no rebound or guarding, normal bowel sounds Back: Normal inspection, nontender Extremity: Normal inspection, no deformity, full range of motion Neuro: Alert and oriented 3, speech clear, no gross motor or sensory deficit Skin: No rash, once, or erythema ED Course Vital Signs 01/07/19 01/08/19 01/08/19 23:04 03:20 03:30 Temperature 98.3 F Pulse Rate 100 H Respiratory 18 16 16 Rate Blood Pressure 186/106 Blood Pressure [Left] O2 Sat by Pulse 100 Oximetry 01/08/19 01/08/19 01/08/19 04:04 04:15 05:28 Temperature 98.1 F Pulse Rate 77 77 80 Respiratory 16 16 Rate Blood Pressure 191/104 201/124 Blood Pressure 190/104 [Left] O2 Sat by Pulse 99 Oximetry ED Medical Decision Making - Lab Data Result diagrams: 01/07/19 23:21 01/07/19 23:21 Lab Results 01/07/19 01/07/19 01/08/19 Range/Units 23:21 23:21 00:24 WBC 11.6 H (4.5-11.0) K/mm3 RBC 4.60 (3.65-5.03) M/mm3 Hgb 13.6 (10.1-14.3) gm/dl Hct 41.0 (30.3-42.9) % MCV 89 (79-97) fl MCH 30 (28-32) pg MCHC 33 (30-34) % RDW 14.6 (13.2-15.2) % Plt Count 218 (140-440) K/mm3 Lymph % (Auto) 25.7 (13.4-35.0) % [place] % (Auto) 7.1 (0.0-7.3) % Eos % (Auto) 1.7 (0.0-4.3) % Baso % (Auto) 0.4 (0.0-1.8) % Lymph # 3.0 (1.2-5.4) K/mm3 [place] # 0.8 (0.0-0.8) K/mm3 Eos # 0.2 (0.0-0.4) K/mm3 Baso # 0.0 (0.0-0.1) K/mm3 Seg Neutrophils % 65.1 (40.0-70.0) % Seg Neutrophils # 7.5 (1.8-7.7) K/mm3 Sodium 134 L (137-145) mmol/L Potassium 4.0 (3.6-5.0) mmol/L Chloride 99.5 (98-107) mmol/L Carbon Dioxide 19 L (22-30) mmol/L Anion Gap 20 mmol/L BUN 12 (7-17) mg/dL Creatinine 0.7 (0.7-1.2) mg/dL Estimated GFR > 60 ml/min BUN/Creatinine Ratio 17 % Glucose 343 H (65-100) mg/dL POC Glucose (70-105) Calcium 9.3 (8.4-10.2) mg/dL Total Bilirubin (0.1-1.2) mg/dL Direct Bilirubin (0-0.2) mg/dL Indirect Bilirubin mg/dL AST (5-40) units/L ALT (7-56) units/L Alkaline Phosphatase (35-129) units/L Troponin T < 0.010 (0.00-0.029) ng/mL Total Protein (6.3-8.2) g/dL Albumin (3.9-5) g/dL Albumin/Globulin Ratio % Lipase (13-60) units/L HCG, Qual Negative (Negative) Urine Color (Yellow) Urine Turbidity (Clear) Urine pH (5.0-7.0) Ur Specific Transfer (1.003-1.030) Urine Protein (Negative) mg/dL Urine Glucose (UA) (Negative) mg/dL Urine Ketones (Negative) mg/dL Urine Blood (Negative) Urine Nitrite (Negative) Urine Bilirubin (Negative) Urine Urobilinogen (<2.0) mg/dL Ur Leukocyte Esterase (Negative) Urine WBC (Auto) (0.0-6.0) /HPF Urine RBC (Auto) (0.0-6.0) /HPF U Epithel Cells (Auto) (0-13.0) /HPF Urine Mucus /HPF 01/08/19 01/08/19 01/08/19 Range/Units 01:48 01:48 03:02 WBC (4.5-11.0) K/mm3 RBC (3.65-5.03) M/mm3 Hgb (10.1-14.3) gm/dl Hct (30.3-42.9) % MCV (79-97) fl MCH (28-32) pg MCHC (30-34) % RDW (13.2-15.2) % Plt Count (140-440) K/mm3 Lymph % (Auto) (13.4-35.0) % [place] % (Auto) (0.0-7.3) % Eos % (Auto) (0.0-4.3) % Baso % (Auto) (0.0-1.8) % Lymph # (1.2-5.4) K/mm3 [place] # (0.0-0.8) K/mm3 Eos # (0.0-0.4) K/mm3 Baso # (0.0-0.1) K/mm3 Seg Neutrophils % (40.0-70.0) % Seg Neutrophils # (1.8-7.7) K/mm3 Sodium (137-145) mmol/L Potassium (3.6-5.0) mmol/L Chloride (98-107) mmol/L Carbon Dioxide (22-30) mmol/L Anion Gap mmol/L BUN (7-17) mg/dL Creatinine (0.7-1.2) mg/dL Estimated GFR ml/min BUN/Creatinine Ratio % Glucose (65-100) mg/dL POC Glucose (70-105) Calcium (8.4-10.2) mg/dL Total Bilirubin 0.20 (0.1-1.2) mg/dL Direct Bilirubin < 0.2 (0-0.2) mg/dL Indirect Bilirubin 0.0 mg/dL AST 25 (5-40) units/L ALT 27 (7-56) units/L Alkaline Phosphatase 73 (35-129) units/L Troponin T < 0.010 (0.00-0.029) ng/mL Total Protein 7.2 (6.3-8.2) g/dL Albumin 4.1 (3.9-5) g/dL Albumin/Globulin Ratio 1.3 % Lipase 35 (13-60) units/L HCG, Qual (Negative) Urine Color Yellow (Yellow) Urine Turbidity Clear (Clear) Urine pH 5.0 (5.0-7.0) Ur Specific Transfer 1.039 H (1.003-1.030) Urine Protein 30 mg/dl (Negative) mg/dL Urine Glucose (UA) >=500 (Negative) mg/dL Urine Ketones Tr (Negative) mg/dL Urine Blood Neg (Negative) Urine Nitrite Neg (Negative) Urine Bilirubin Neg (Negative) Urine Urobilinogen < 2.0 (<2.0) mg/dL Ur Leukocyte Esterase Neg (Negative) Urine WBC (Auto) 3.0 (0.0-6.0) /HPF Urine RBC (Auto) 1.0 (0.0-6.0) /HPF U Epithel Cells (Auto) 4.0 (0-13.0) /HPF Urine Mucus 1+ /HPF 01/08/19 01/08/19 Range/Units 04:22 04:50 WBC (4.5-11.0) K/mm3 RBC (3.65-5.03) M/mm3 Hgb (10.1-14.3) gm/dl Hct (30.3-42.9) % MCV (79-97) fl MCH (28-32) pg MCHC (30-34) % RDW (13.2-15.2) % Plt Count (140-440) K/mm3 Lymph % (Auto) (13.4-35.0) % [place] % (Auto) (0.0-7.3) % Eos % (Auto) (0.0-4.3) % Baso % (Auto) (0.0-1.8) % Lymph # (1.2-5.4) K/mm3 [place] # (0.0-0.8) K/mm3 Eos # (0.0-0.4) K/mm3 Baso # (0.0-0.1) K/mm3 Seg Neutrophils % (40.0-70.0) % Seg Neutrophils # (1.8-7.7) K/mm3 Sodium (137-145) mmol/L Potassium (3.6-5.0) mmol/L Chloride (98-107) mmol/L Carbon Dioxide (22-30) mmol/L Anion Gap mmol/L BUN (7-17) mg/dL Creatinine (0.7-1.2) mg/dL Estimated GFR ml/min BUN/Creatinine Ratio % Glucose (65-100) mg/dL POC Glucose 247 H (70-105) Calcium (8.4-10.2) mg/dL Total Bilirubin (0.1-1.2) mg/dL Direct Bilirubin (0-0.2) mg/dL Indirect Bilirubin mg/dL AST (5-40) units/L ALT (7-56) units/L Alkaline Phosphatase (35-129) units/L Troponin T < 0.010 (0.00-0.029) ng/mL Total Protein (6.3-8.2) g/dL Albumin (3.9-5) g/dL Albumin/Globulin Ratio % Lipase (13-60) units/L HCG, Qual (Negative) Urine Color (Yellow) Urine Turbidity (Clear) Urine pH (5.0-7.0) Ur Specific Transfer (1.003-1.030) Urine Protein (Negative) mg/dL Urine Glucose (UA) (Negative) mg/dL Urine Ketones (Negative) mg/dL Urine Blood (Negative) Urine Nitrite (Negative) Urine Bilirubin (Negative) Urine Urobilinogen (<2.0) mg/dL Ur Leukocyte Esterase (Negative) Urine WBC (Auto) (0.0-6.0) /HPF Urine RBC (Auto) (0.0-6.0) /HPF U Epithel Cells (Auto) (0-13.0) /HPF Urine Mucus /HPF - EKG Data -: EKG Interpreted by Me (LBB) EKG shows normal: sinus rhythm, axis (qrs -78), QRS complexes (qrsd 150), ST-T waves (no stemi) - EKG Data When compared to previous EKG there are: no significant change - Radiology Data Radiology results: report reviewed CHEST 1 VIEW INDICATION: Chest Pain. COMPARISON: 12/03/2018 FINDINGS: Support devices: None. Heart: Within normal limits. Lungs/Pleura: No acute air space or interstitial disease. Additional findings: None. IMPRESSION: 1. No acute findings. Signer Name: Kelvin Ortiz CT ABDOMEN AND PELVIS WITHOUT CONTRAST HISTORY: right sided abd pain. Right-sided abdominal pain COMPARISON: CT abdomen/pelvis from 11/23/2018 TECHNIQUE: CT images of the abdomen and pelvis were obtained without administration of intravenous contrast. All CT scans at this location are performed using CT dose reduction for ALARA by means of automated exposure control. FINDINGS: Lungs/bones: Lung bases are clear. There is DJD in the spine and pelvis with no acute osseous abnormality. Abdomen/pelvis: The liver is mildly enlarged no focal mass. The gallbladder, spleen, pancreas, adrenals, and proximal GI tract appear unremarkable. There is punctate bilateral nephrolithiasis which is similar to the previous examination. No ureteral stone disease or hydronephrosis. The urinary bladder is collapsed. Reproductive organs are unremarkable except for probable small nabothian cyst near the cervix. No pelvic free fluid. No acute colonic abnormality identified. The appendix and terminal ileum appear normal. IMPRESSION: 1. Nonobstructive nephrolithiasis. Otherwise nothing acute. LIMITED RUQ ABDOMINAL ULTRASOUND INDICATION: Ruq abd pain. COMPARISON: CT abdomen/pelvis from today. FINDINGS: Pancreas: Visualized portions show no significant abnormality. Abdominal Aorta: No significant abnormality. IVC: No significant abnormality. Liver: The liver measures 16.2 cm in length. Liver is diffusely echogenic with no discrete mass. Normal hepatopedal blood flow in the main portal vein. Gallbladder: No significant abnormality. Bile ducts: No significant abnormality. Common bile duct measures 3 mm. Right kidney: No significant abnormality visualized.. Free fluid: None. Additional Findings: None. IMPRESSION: 1. Mildly echogenic liver, most commonly seen with steatosis. - Medical Decision Making pt feeling better with ed tx bp improved with meds Patient suspected of having gallbladder dysfunction since pain is in the right upper quadrant and worsens a by mouth intake. No signs of acute cholecystitis or cholelithiasis at this time. Patient will benefit from a HIDA scan outpatient surgical evaluation for possible cholecystectomy. Symptomatic treatment will be provided. A refill of her blood pressure medicine will be provided per her request - Differential Diagnosis cholelithiasis, cholecystitis, pancreatitis, gastritis, renal colic Critical Care Time: No Critical care attestation.: If time is entered above; I have spent that time in minutes in the direct care of this critically ill patient, excluding procedure time. ED Disposition Clinical Impression: RUQ pain, GERD (gastroesophageal reflux disease) Disposition: TO HOME OR SELFCARE Is pt being admited?: No Does the pt Need Aspirin: No Condition: Stable Instructions: Biliary Colic (ED), Acute Nausea and Vomiting (ED), Gastroesophageal Reflux Disease (ED) Additional Instructions: Take the medications as prescribed. Follow-up with your doctor or with a doctor/clinic provided. Return is symptoms worsen as indicated by the discharge instructions. Prescriptions: cloNIDine [Catapres] 0.1 mg PO BID #60 tablet Furosemide [Lasix TAB] 40 mg PO QDAY #30 tablet Oxycodone HCl/Acetaminophen [Percocet 10/325 mg] 1 each PO Q6HR PRN #15 tablet PRN Reason: Pain Pantoprazole [Protonix TAB] 20 mg PO QDAY #30 tablet.dr Referrals: [facility] MD KEAGAN [Primary Care Provider] - 3-5 Days ALTA COLBERT MD [Staff Physician] - 3-5 Days (surgeon ) PEDRO PAPPAS MD [Staff Physician] - 3-5 Days (GI doctor ) Time of Disposition: 05:48
[2019-01-08] MEDS ORDERED: HumuLIN R IV ONE (04:35)
[2019-01-08] MEDS ORDERED: NORMODYNE IV ONE (05:17)
[2019-01-08 05:38] VITALS: BP 165/85
== END 2019-01-08 06:00 | disposition home or self-care (01) ==
LOC: ED 22:46
DX: K21.9 Gastro-esophageal reflux disease without esophagitis (principal); R10.11 Right upper quadrant pain; I11.0 Hypertensive heart disease with heart failure; I50.9 Heart failure, unspecified; I25.2 Old myocardial infarction; E11.9 Type 2 diabetes mellitus without complications; Z95.1 Presence of aortocoronary bypass graft; Z79.82 Long term (current) use of aspirin; Z79.4 Long term (current) use of insulin; Z79.899 Other long term (current) drug therapy; Z88.6 Allergy status to analgesic agent; Z88.1 Allergy status to other antibiotic agents; Z88.8 Allergy status to other drugs, medicaments and biological substances
CPT/HCPCS: 36415; 71045; 74176; 76705; 80048; 80076; 81001; 82962; 83690; 84484; 84703; 85025; 93005; 93010; 96374; 96375; 96376; 99285; J1170; J2405

== ENCOUNTER 2019-01-10 07:52 | Emergency (ER) | payer OTHER ==
[2019-01-10 08:43] LABS: Basophils # (Auto) 0.1 K/mm3 (0.0-0.1); Basophils % (Auto) 0.9 % (0.0-1.8); Eosinophils # (Auto) 0.3 K/mm3 (0.0-0.4); Eosinophils % (Auto) 3.4 % (0.0-4.3); Hematocrit 39.1 % (30.3-42.9); Hemoglobin 13.3 gm/dl (10.1-14.3); Lymphocytes # (Auto) 2.3 K/mm3 (1.2-5.4); Lymphocytes % (Auto) 27.3 % (13.4-35.0); Mean Corpuscular HGB Conc 34 % (30-34); Mean Corpuscular Volume 89 fl (79-97); Monocytes # (Auto) 0.6 K/mm3 (0.0-0.8); Monocytes % (Auto) 6.9 % (0.0-7.3); Platelet Count 197 K/mm3 (140-440); Red Blood Count 4.41 M/mm3 (3.65-5.03); Red Cell Distribution Width 14.3 % (13.2-15.2)
[2019-01-10 08:50] LABS: Bilirubin,Urine NEG (Negative); Blood,Urine NEG (Negative); Color,Urine Straw (Yellow); Protein,Urine <15 mg/dL mg/dL (Negative); Urobilinogen,Urine < 2.0 mg/dL (<2.0); WBC,Urine < 1.0 /HPF (0.0-6.0)
[2019-01-10 08:58] LABS: Alanine Aminotransferase 23 units/L (7-56); BUN/Creatinine Ratio 19; Blood Urea Nitrogen 13 mg/dL (7-17); Calcium 9.1 mg/dL (8.4-10.2); Hemolysis Index 7
[2019-01-10] MEDS ORDERED: ZOFRAN IV ONE (09:42)
[2019-01-10] MEDS ORDERED: MORPHINE IV ONE (09:42)
--- NOTE | 2019-01-10 10:10 | Emergency Department Report ---
ED General Adult HPI - General Chief complaint: Extremity Injury, Lower Stated complaint: CHEST/R SIDE PAIN/N/V/LEGS/ANKLE SWOLLEN Time Seen by Provider: 01/10/19 09:18 Source: patient Mode of arrival: Ambulatory Limitations: No Limitations - History of Present Illness Initial comments: Patient presents to the emergency department with a chief complaint of right upper quadrant and right flank pain that started Friday. She states since that time she's a significant amount of nausea and vomiting. Patient states that the right upper quadrant abdominal pain radiates into her right scapula. Patient is also concerned about bilateral leg swelling. Patient states she has congestive heart failure and takes Lasix daily. -: Gradual Location: abdomen Radiation: non-radiation Severity scale (0 -10): 3 Quality: sharp Consistency: constant Improves with: none Worsens with: none Associated Symptoms: denies other symptoms Treatments Prior to Arrival: none - Related Data Home Medications Medication Instructions Recorded Confirmed Last Taken Insulin Glargine,Hum.rec.anlog 80 units SUB-Q QHS 01/27/18 11/20/18 08/10/18 [Basaglar Kwikpen U-100] Lisinopril [Zestril] 40 mg PO QDAY 01/27/18 11/20/18 08/10/18 Insulin Glulisine [Apidra Solostar] 12 unit SQ QID 11/20/18 11/20/18 Unknown Loratadine 10 mg PO DAILY 11/20/18 11/20/18 Unknown Previous Rx's Medication Instructions Recorded Last Taken Type Aspirin [Aspirin BABY CHEW TAB] 81 mg PO QDAY tab.chew 02/22/18 08/10/18 Rx Fluconazole [Diflucan TAB] 150 mg PO ONCE #2 tablet 11/24/18 Unknown Rx levoFLOXacin [Levaquin TAB] 500 mg PO QDAY #3 tablet 11/24/18 Unknown Rx Furosemide [Lasix TAB] 40 mg PO QDAY #30 tablet 01/08/19 Unknown Rx Oxycodone HCl/Acetaminophen 1 each PO Q6HR PRN #15 tablet 01/08/19 Unknown Rx [Percocet 10/325 mg] Pantoprazole [Protonix TAB] 20 mg PO QDAY #30 tablet 01/08/19 Unknown Rx cloNIDine [Catapres] 0.1 mg PO BID #60 tablet 01/08/19 Unknown Rx HYDROcodone/APAP 7.5-325 [[place] 1 each PO Q6HR PRN #15 tablet 01/10/19 Unknown Rx 7.5/325] Ondansetron [Zofran Odt] 4 mg PO Q4HR PRN #20 tab.rapdis 01/10/19 Unknown Rx Promethazine [Phenergan TAB] 25 mg PO Q6HR PRN #20 tab 01/10/19 Unknown Rx Allergies Allergy/AdvReac Type Severity Reaction Status Date / Time azithromycin [From Zithromax] Allergy Swelling Verified 11/20/18 12:27 diphenhydramine Allergy Angioedema Verified 11/20/18 12:27 [From Benadryl] ketorolac [From Toradol] Allergy Angioedema Verified 11/20/18 12:27 metformin Allergy Rash Verified 11/20/18 12:27 naproxen Allergy Hives Verified 11/20/18 12:27 nonoxynol 9 Allergy Swelling Verified 11/20/18 12:27 [From [place] Plus Spermicidal Jelly] ED Review of Systems ROS: Stated complaint: CHEST/R SIDE PAIN/N/V/LEGS/ANKLE SWOLLEN Other details as noted in HPI Constitutional: denies: chills, fever Eyes: denies: eye pain, eye discharge, vision change ENT: denies: ear pain, throat pain Respiratory: denies: cough, shortness of breath, wheezing Cardiovascular: denies: chest pain, palpitations Endocrine: no symptoms reported Gastrointestinal: abdominal pain. denies: nausea, diarrhea Genitourinary: denies: urgency, dysuria, discharge Musculoskeletal: denies: back pain, joint swelling, arthralgia Skin: denies: rash, lesions Neurological: denies: headache, weakness, paresthesias Psychiatric: denies: anxiety, depression Hematological/Lymphatic: denies: easy bleeding, easy bruising ED Past Medical Hx - Past Medical History Hx Hypertension: Yes Hx Heart Attack/AMI: Yes Hx Congestive Heart Failure: Yes Hx Diabetes: Yes Hx Kidney Stones: Yes (Stents) Additional medical history: Flash pulmonary edema, kidney stents - Surgical History Hx Coronary Stent: Yes Additional Surgical History: C/S, renal stents, Heart stent in the LAD 2 yrs ago - Social History Smoking Status: Current Every Day Smoker Substance Use Type: None - Medications Home Medications: Home Medications Medication Instructions Recorded Confirmed Last Taken Type Insulin Glargine,Hum.rec.anlog 80 units SUB-Q QHS 01/27/18 11/20/18 08/10/18 History [Basaglar Kwikpen U-100] Lisinopril [Zestril] 40 mg PO QDAY 01/27/18 11/20/18 08/10/18 History Aspirin [Aspirin BABY CHEW TAB] 81 mg PO QDAY tab.chew 02/22/18 11/20/18 08/10/18 Rx Insulin Glulisine [Apidra Solostar] 12 unit SQ QID 11/20/18 11/20/18 Unknown History Loratadine 10 mg PO DAILY 11/20/18 11/20/18 Unknown History Fluconazole [Diflucan TAB] 150 mg PO ONCE #2 tablet 11/24/18 Unknown Rx levoFLOXacin [Levaquin TAB] 500 mg PO QDAY #3 tablet 11/24/18 Unknown Rx Furosemide [Lasix TAB] 40 mg PO QDAY #30 tablet 01/08/19 Unknown Rx Oxycodone HCl/Acetaminophen 1 each PO Q6HR PRN #15 tablet 01/08/19 Unknown Rx [Percocet 10/325 mg] Pantoprazole [Protonix TAB] 20 mg PO QDAY #30 tablet.dr 01/08/19 Unknown Rx cloNIDine [Catapres] 0.1 mg PO BID #60 tablet 01/08/19 Unknown Rx HYDROcodone/APAP 7.5-325 [[place] 1 each PO Q6HR PRN #15 tablet 01/10/19 Unknown Rx 7.5/325] Ondansetron [Zofran Odt] 4 mg PO Q4HR PRN #20 tab.rapdis 01/10/19 Unknown Rx Promethazine [Phenergan TAB] 25 mg PO Q6HR PRN #20 tab 01/10/19 Unknown Rx ED Physical Exam - General Limitations: No Limitations General appearance: alert, in no apparent distress - Head Head exam: Present: atraumatic, normocephalic - Eye Eye exam: Present: normal appearance, PERRL, EOMI - ENT ENT exam: Present: mucous membranes moist - Neck Neck exam: Present: normal inspection - Respiratory Respiratory exam: Present: normal lung sounds bilaterally. Absent: respiratory distress - Cardiovascular Cardiovascular Exam: Present: regular rate, normal rhythm. Absent: systolic murmur, diastolic murmur, rubs, gallop - GI/Abdominal GI/Abdominal exam: Present: soft, tenderness (TTP RUQ), normal bowel sounds. Absent: distended - Extremities Exam Extremities exam: Present: normal inspection, other (pitting edema ) - Back Exam Back exam: Present: normal inspection - Neurological Exam Neurological exam: Present: alert, oriented X3, CN II-XII intact. Absent: motor sensory deficit - Psychiatric Psychiatric exam: Present: normal affect, normal mood - Skin Skin exam: Present: warm, dry, intact, normal color. Absent: rash ED Course Vital Signs 01/10/19 01/10/19 01/10/19 08:04 08:38 08:45 Temperature 98.5 F Pulse Rate 108 H 98 H Respiratory 18 17 Rate Blood Pressure 201/103 193/109 O2 Sat by Pulse 98 98 95 Oximetry ED Medical Decision Making - Lab Data Result diagrams: 01/10/19 08:32 01/10/19 08:32 Lab Results 01/10/19 01/10/19 01/10/19 Range/Units 08:11 08:32 08:32 WBC 8.4 (4.5-11.0) K/mm3 RBC 4.41 (3.65-5.03) M/mm3 Hgb 13.3 (10.1-14.3) gm/dl Hct 39.1 (30.3-42.9) % MCV 89 (79-97) fl MCH 30 (28-32) pg MCHC 34 (30-34) % RDW 14.3 (13.2-15.2) % Plt Count 197 (140-440) K/mm3 Lymph % (Auto) 27.3 (13.4-35.0) % [place] % (Auto) 6.9 (0.0-7.3) % Eos % (Auto) 3.4 (0.0-4.3) % Baso % (Auto) 0.9 (0.0-1.8) % Lymph # 2.3 (1.2-5.4) K/mm3 [place] # 0.6 (0.0-0.8) K/mm3 Eos # 0.3 (0.0-0.4) K/mm3 Baso # 0.1 (0.0-0.1) K/mm3 Seg Neutrophils % 61.5 (40.0-70.0) % Seg Neutrophils # 5.1 (1.8-7.7) K/mm3 Sodium (137-145) mmol/L Potassium (3.6-5.0) mmol/L Chloride (98-107) mmol/L Carbon Dioxide (22-30) mmol/L Anion Gap mmol/L BUN (7-17) mg/dL Creatinine (0.7-1.2) mg/dL Estimated GFR ml/min BUN/Creatinine Ratio % Glucose (65-100) mg/dL Calcium (8.4-10.2) mg/dL Total Bilirubin (0.1-1.2) mg/dL AST (5-40) units/L ALT (7-56) units/L Alkaline Phosphatase (35-129) units/L NT-Pro-B Natriuret Pep (0-450) pg/mL Total Protein (6.3-8.2) g/dL Albumin (3.9-5) g/dL Albumin/Globulin Ratio % Lipase (13-60) units/L HCG, Qual Negative (Negative) Urine Color Straw (Yellow) Urine Turbidity Clear (Clear) Urine pH 7.0 (5.0-7.0) Ur Specific [place] 1.022 (1.003-1.030) Urine Protein <15 mg/dl (Negative) mg/dL Urine Glucose (UA) >=500 (Negative) mg/dL Urine Ketones Tr (Negative) mg/dL Urine Blood Neg (Negative) Urine Nitrite Neg (Negative) Urine Bilirubin Neg (Negative) Urine Urobilinogen < 2.0 (<2.0) mg/dL Ur Leukocyte Esterase Neg (Negative) Urine WBC (Auto) < 1.0 (0.0-6.0) /HPF Urine RBC (Auto) 1.0 (0.0-6.0) /HPF U Epithel Cells (Auto) < 1.0 (0-13.0) /HPF 01/10/19 01/10/19 Range/Units 08:32 09:52 WBC (4.5-11.0) K/mm3 RBC (3.65-5.03) M/mm3 Hgb (10.1-14.3) gm/dl Hct (30.3-42.9) % MCV (79-97) fl MCH (28-32) pg MCHC (30-34) % RDW (13.2-15.2) % Plt Count (140-440) K/mm3 Lymph % (Auto) (13.4-35.0) % [place] % (Auto) (0.0-7.3) % Eos % (Auto) (0.0-4.3) % Baso % (Auto) (0.0-1.8) % Lymph # (1.2-5.4) K/mm3 [place] # (0.0-0.8) K/mm3 Eos # (0.0-0.4) K/mm3 Baso # (0.0-0.1) K/mm3 Seg Neutrophils % (40.0-70.0) % Seg Neutrophils # (1.8-7.7) K/mm3 Sodium 134 L (137-145) mmol/L Potassium 4.0 (3.6-5.0) mmol/L Chloride 98.2 (98-107) mmol/L Carbon Dioxide 24 (22-30) mmol/L Anion Gap 16 mmol/L BUN 13 (7-17) mg/dL Creatinine 0.7 (0.7-1.2) mg/dL Estimated GFR > 60 ml/min BUN/Creatinine Ratio 19 % Glucose 326 H (65-100) mg/dL Calcium 9.1 (8.4-10.2) mg/dL Total Bilirubin 0.20 (0.1-1.2) mg/dL AST 13 (5-40) units/L ALT 23 (7-56) units/L Alkaline Phosphatase 69 (35-129) units/L NT-Pro-B Natriuret Pep 1241 H (0-450) pg/mL Total Protein 7.4 (6.3-8.2) g/dL Albumin 4.0 (3.9-5) g/dL Albumin/Globulin Ratio 1.2 % Lipase 27 (13-60) units/L HCG, Qual (Negative) Urine Color (Yellow) Urine Turbidity (Clear) Urine pH (5.0-7.0) Ur Specific [place] (1.003-1.030) Urine Protein (Negative) mg/dL Urine Glucose (UA) (Negative) mg/dL Urine Ketones (Negative) mg/dL Urine Blood (Negative) Urine Nitrite (Negative) Urine Bilirubin (Negative) Urine Urobilinogen (<2.0) mg/dL Ur Leukocyte Esterase (Negative) Urine WBC (Auto) (0.0-6.0) /HPF Urine RBC (Auto) (0.0-6.0) /HPF U Epithel Cells (Auto) (0-13.0) /HPF - Radiology Data Radiology results: report reviewed - Medical Decision Making Patient given IV Lasix Discussed results with patient and the need to double up on her Lasix for the next 2 days and then go back to her normal regimen Critical Care Time: Yes Critical care time in (mins) excluding proc time.: 35 Critical care attestation.: If time is entered above; I have spent that time in minutes in the direct care of this critically ill patient, excluding procedure time. ED Disposition Clinical Impression: CHF (congestive heart failure), RUQ abdominal pain, Flank pain Disposition: TO HOME OR SELFCARE Is pt being admited?: No Does the pt Need Aspirin: No Condition: Stable Instructions: Heart Failure (ED), Biliary Colic (ED) Additional Instructions: return if worse Referrals: BO LANDA MD [Primary Care Provider] - 3-5 Days [facility] [Provider Group] - 3-5 Days [facility] [Provider Group] - 3-[address] [facility] [Outside] - 3-5 Days [facility] [Provider Group] - 3-5 Days GUS MARTINEZ DO [Staff Physician] - 3-5 Days Time of Disposition: 12:29
[2019-01-10] MEDS ORDERED: LASIX IV ONE (10:37)
--- NOTE | 2019-01-10 11:16 | XRay Report ---
CHEST 1 VIEW INDICATION: CHF COMPARISON: 01/08/2019 FINDINGS: Support devices: None Heart: Stable. Lungs/Pleura: No acute pulmonary or pleural findings. IMPRESSION: 1. No significant change. Signer Name: Irineo Sanchez MD Signed: 01/10/2019 11:11 AM Workstation Name: [id number]
--- NOTE | 2019-01-10 12:06 | Ultrasound Report ---
US abdomen limited INDICATION / CLINICAL INFORMATION: worsening RUQ pain. COMPARISON: None available. FINDINGS: Probable hepatic steatosis. Gallbladder appears normal, with no stones or wall thickening. Common vandana t is normal in size. Right kidney is also negative. IMPRESSION: 1. Exam is somewhat limited because of the patient's size. Hepatic steatosis. Normal gallbladder. Signer Name: Irineo Sanchez MD Signed: 01/10/2019 12:02 PM Workstation Name: [id number]
[2019-01-10] MEDS ORDERED: NORCO 10/325 PO ONE (12:14)
[2019-01-10] MEDS ORDERED: ZOFRAN ODT ONE (12:41)
[2019-01-10] MEDS ORDERED: ALUM-MAG HYDROX-SIMETH 200-200-20MG/5ML PO ONE (13:22)
[2019-01-10] MEDS ORDERED: LIDOCAINE VISCOUS 2% PO ONE (13:23)
[2019-01-10] MEDS ORDERED: CARAFATE PO ONE (13:24)
[2019-01-10 13:47] VITALS: BP 201/94
== END 2019-01-10 13:44 | disposition home or self-care (01) ==
LOC: ED 07:52
DX: I11.0 Hypertensive heart disease with heart failure (principal); I50.9 Heart failure, unspecified; R10.11 Right upper quadrant pain; E11.9 Type 2 diabetes mellitus without complications; F17.200 Nicotine dependence, unspecified, uncomplicated; R11.2 Nausea with vomiting, unspecified; Z88.1 Allergy status to other antibiotic agents; Z88.8 Allergy status to other drugs, medicaments and biological substances; Z79.4 Long term (current) use of insulin; Z79.82 Long term (current) use of aspirin; Z79.899 Other long term (current) drug therapy; Z88.5 Allergy status to narcotic agent; Z95.1 Presence of aortocoronary bypass graft
CPT/HCPCS: 36415; 71045; 76705; 80053; 81001; 83690; 83880; 84703; 85025; 96374; 96375; 99285; J1940; J2270; J2405; Q0162